=== PATIENT | female | born 1980 | race Caucasian/White ===

== ENCOUNTER → 2018-04-01 09:22 | Outpatient (CLI) | payer OTHER, SELFPAY ==
[2018-04-05 03:06] LABS: QNTFERON TB Ag Minus Nil Value < 0 IU/mL (.); QNTFERON TB Ag Value 0.29 IU/mL (.); QNTFERON TB Mitogen Value > 10.00 IU/mL (.); QNTFERON TB Nil Value 0.57 IU/mL (.)
[2018-04-05 08:47] LABS: QNTIFERON TB Gold Negative (Negative)
== END ==
PROVIDERS: Dermatology Pediatric Dermatology; Family Provider Family Medicine; PCP Family Medicine
DX: L40.0 Psoriasis vulgaris (principal); Z79.899 Other long term (current) drug therapy
CPT/HCPCS: 36415; 86480

== ENCOUNTER → 2018-05-05 13:43 | Outpatient (CLI) | payer OTHER, SELFPAY ==
--- NOTE | 2018-05-05 13:46 | BI_ITS ---
MAMMOGRAPHY - BILATERAL DIAGNOSTIC REASON FOR EXAM: Female, 37 years old. One-day history of right breast lump. Injury. PERTINENT HISTORY: Non-contributory. TECHNIQUE: Digital bilateral breast cary (3D mammographic acquisition) in the CC and MLO projections. 2-D mediolateral oblique (MLO) and craniocaudad (CC) views of both breasts were obtained. CAD: Full Field Digital Mammography with Computer Added Detection was performed. COMPARISON: None. Baseline examination. FINDINGS: Breast Composition: There are scattered areas of fibroglandular density. There are no dominant masses or suspicious calcifications. No other significant abnormalities are identified. BI/DIAG MAMM W/CAD, BILAT IMPRESSION: Negative diagnostic mammogram. With the patient's history of a right breast lump, correlation with ultrasound is recommended. ASSESSMENT CATEGORY: BIRADS Category 0: Incomplete. Need additional imaging evaluation. A letter regarding these results will be sent to the patient by the facility within 30 days. Approximately 10% of breast cancers are not detected by mammography. A normal mammogram should not delay biopsy of a clinically suspicious abnormality. Electronically Signed: Zoltan Hope MD at 14:51 EDT Tel [phone], Service support ,
--- NOTE | 2018-05-05 13:46 | US_ITS ---
STUDY: ULTRASOUND BREAST - RIGHT REASON FOR EXAM: Female, 37 years old. Palpable lump in the right breast. TECHNIQUE: Axial and longitudinal images of the RIGHT breast were performed with a high resolution ultrasound transducer. COMPARISON: Comparison is made with prior mammogram done earlier today. FINDINGS: RIGHT Breast: The palpable abnormality at the 1:00 position in the breast that 4 cm from the nipple corresponds to a 2.8 cm x 2.5 cm x 1.3 cm slightly lobular echogenic nodule with a linear fluid density within it. This may represent a hematoma following a history of injury. US/Breast Limited Unilateral IMPRESSION: The pathologic amount equals approximately 2.8 cm x 2.5 cm x 1.3 cm slightly echogenic nodule with a central linear fluid collection. This may represent a hematoma. ASSESSMENT CATEGORY: BIRADS Category 2: Benign. A letter regarding these results will be sent to the patient by the facility within 30 days. Electronically Signed: Zoltan Hope MD at 15:41 EDT Tel [phone], Service support ,
--- NOTE | 2018-05-05 15:45 | BRBX_PTH ---
PATIENT: SYEDA ABREU LOC: [facility] U#:[id number] AGE/SX: 45/F ROOM: RE05/05/[address]: Dr. Roshan Flores MD : 1980 BED: DIS: SPEC #: [id number] RECD: 05/05/18 16:35 STATUS: VIVIANA FABRICIO #: [id number] BANDAR: 05/05/18 15:[address]: Roshan Flores DEPT: SURGICAL PATHOLOGY RECD BY: Jv Correa ENTERED: 05/07/18 07:59 SP TYPE: BREAST BX OTHR DR: Dr. Scar Zavala MD Tissues: Right breast, NOS Procedures: Surgery Specimen Level IV HEADER OPERATION: Right breast biopsy PRE-OP DIAGNOSIS: Right breast lump TISSUE SUBMITTED: Right breast tissue ISCHEMIC TIME: <1 minute FIXATION TIME: 51.5 hours MICROSCOPIC DIAGNOSIS Right breast lump, core biopsy: Fat necrosis. No evidence of malignancy. AM:tanesha 05/08/18 MICROSCOPIC DESCRIPTION Slides are reviewed. GROSS DESCRIPTION Received in fixative is one container labeled with the patient's name and designated right breast. The specimen consists of multiple cores of ramos-yellow tissue measuring 1.7 cm in length and 0.2 cm in diameter. The specimen is totally submitted in one cassette. / RY:tanesha 05/07/18 TC:5 CPT: 07260
== END ==
PROVIDERS: Family Provider Family Medicine; PCP Family Medicine; Visit Provider Surgery
DX: N63.10 Unspecified lump in the right breast, unspecified quadrant (principal)
CPT/HCPCS: 76642; 77062; 77066; 88305; G0279

== ENCOUNTER → 2018-06-17 11:19 | Outpatient (CLI) | payer OTHER, SELFPAY | LOC: RAD 11:21 → MTRAD 12:47 | PROVIDERS: Family Provider Family Medicine; PCP Family Medicine; Visit Provider Physician Assistant | DX: J45.909 Unspecified asthma, uncomplicated (principal); R05 Cough | CPT/HCPCS: 71046 ==

== ENCOUNTER 2018-07-23 07:46 | Emergency (ER) | payer OTHER, SELFPAY ==
[2018-07-23 07:47] VITALS: BP 122/84; PULSE 77; RESP 16; TEMP 36.8; O2SAT 100; BMI 30.9
--- NOTE | 2018-07-23 08:02 | EKG12_ITS ---
Test Reason : BACK PAIN Blood Pressure : / mmHG Vent. Rate : 064 BPM Atrial Rate : 064 BPM P-R Int : 142 ms QRS Dur : 090 ms QT Int : 398 ms P-R-T Axes : 049 049 049 degrees QTc Int : 410 ms Normal sinus rhythm Normal ECG Confirmed by FELIPE RODGERS MD ([id number]), photo editor TRACY DUNBAR ([id number]) on 07/29/2018 9:15:45 AM Referred By: Health Assessment Confirmed By:FELIPE RODGERS MD
--- NOTE | 2018-07-23 08:03 | CT_ITS ---
STUDY: CTA CHEST REASON FOR EXAM: Female, 38 years old. Scapular pain with deep inspiration. RADIATION DOSAGE (If Supplied By Facility): CTDIvol = ( 15.63 ) mGy, DLP = ( 731.49 ) mGycm TECHNIQUE: The examination was performed with the intravenous administration of 100 ml of Isovue 370 contrast material. Post-processing of the angiographic images was performed, with multiplanar reformation and 3D reconstruction. Individualized dose optimization techniques were used for this CT. COMPARISON: None. FINDINGS: Normal enhancement of the main pulmonary artery and right and left pulmonary arteries. Normal enhancement of the bilateral peripheral pulmonary arteries. There is no demonstrated pulmonary embolism. Normal thoracic aorta and visualized great vessels. There is no demonstrated aortic dissection. Normal heart and pericardium. Normal mediastinum. Normal hilar regions. Normal visualized trachea and bronchi. The lungs are well expanded. Normal pulmonary parenchyma. Normal pleura. Normal chest wall structures. There are degenerative changes of thoracic spine. Normal visualized upper abdomen. CT/CTA Chest W/WO Contrast IMPRESSION: Normal CTA chest examination, without a demonstrated pulmonary embolism or arterial dissection. Electronically Signed: Zoltan Hope MD at 10:06 EDT Tel [phone], Service support ,
--- NOTE | 2018-07-23 08:05 | ED.VISSUMM ---
- ER Visit Summary Date of Service: 07/23/18 Chief Complaint: [left back/scapular pain] History of Present Illness: The patient is a 38 F [that presents with left sided back pain along her scapula/rhomboid region. She has some reproduction of the pain with movement of her left arm but she does have pain with breathing as well. She denies any chest pain or shortness of breath otherwise. She overall appears well and nontoxic. No history of DVT or PE. She does have a Mirena IUD in place. She is not tachycardic or hypoxic. No recent travel. She overall appears well and nontoxic. She denies any fall or injury. She has no other complaints.] Physical Examination: [General: The patient appears well and in no apparent distress. Patient is resting comfortably on cart. Skin: Warm, dry, no pallor noted. No rash. Head: Normocephalic, atraumatic Neck: Supple, nontender. ENT: Moist mucus membranes, pharynx within normal limits. Cardiovascular: Regular Rate and Rhythm, no gallups or rubs Respiratory: Patient is in no distress, no accessory muscle use, lungs are clear to auscultation, no wheezing, rales or rhonchi Musculoskeletal: normal ROM, no deformity, tenderness along the left medial scapular region, no swelling. 2+ radial and DP pulses symmetric. GI: No tenderness to palpation, no masses appreciated. No rebound, guarding, or rigidity noted. Neurological: A&O, normal strength and sensation. Psychiatric: Cooperative] Test Results: [EKG shows normal sinus rhythm with a rate of 64, no acute ischemic changes or arrhythmia. Normal intervals. No heart blocks. No S1, Q3, T3 pattern. Blood work overall unremarkable. HCG was negative. WBC was 4.3.] Emergency Department Course and Treatment: [She was given IV fluids and Toradol. CTA imaging shows no evidence of PE or dissection. On re-eval at 1010 patient feels improved and vitals remained stable. She has no evidence of PE or dissection. I feel her symptoms are likely musculoskeletal in nature. She will continue Tylenol or Motrin [id number] as needed and as directed. She will follow closely with her primary provider and return with any new or worsening symptoms. She was advised of her lab findings for close follow-up. Patient discharged home in stable and improved condition.] Treatment Plan: [See above] Disposition: [Discharge home, stable and improved condition] Impression: [Thoracic paraspinal strain] This note was generated with [employer] dictation software. It may contain incorrect words, spelling, and punctuation that were not noted in review of the chart prior to signing ED Disposition - Plan for ED Patient: Disposition: Home or Assisted Living Chief Complaint: Back Instructions: ED Neck Back Pain General Referrals: Scar Zavala MD [Primary Care Provider] -
--- NOTE | 2018-07-23 08:09 | ED.DCSUM_ITS ---
- ER Visit Summary Date of Service: 07/23/18 Chief Complaint: [left back/scapular pain] History of Present Illness: The patient is a 38 F [that presents with left sided back pain along her scapula/rhomboid region. She has some reproduction of the pain with movement of her left arm but she does have pain with breathing as well. She denies any chest pain or shortness of breath otherwise. She overall appears well and nontoxic. No history of DVT or PE. She does have a Mirena IUD in place. She is not tachycardic or hypoxic. No recent travel. She overall appears well and nontoxic. She denies any fall or injury. She has no other complaints.] Physical Examination: [General: The patient appears well and in no apparent distress. Patient is resting comfortably on cart. Skin: Warm, dry, no pallor noted. No rash. Head: Normocephalic, atraumatic Neck: Supple, nontender. ENT: Moist mucus membranes, pharynx within normal limits. Cardiovascular: Regular Rate and Rhythm, no gallups or rubs Respiratory: Patient is in no distress, no accessory muscle use, lungs are clear to auscultation, no wheezing, rales or rhonchi Musculoskeletal: normal ROM, no deformity, tenderness along the left medial scapular region, no swelling. 2+ radial and DP pulses symmetric. GI: No tenderness to palpation, no masses appreciated. No rebound, guarding, or rigidity noted. Neurological: A&O, normal strength and sensation. Psychiatric: Cooperative] Test Results: [EKG shows normal sinus rhythm with a rate of 64, no acute ischemic changes or arrhythmia. Normal intervals. No heart blocks. No S1, Q3 , T3 pattern. Blood work overall unremarkable. HCG was negative. WBC was 4.3.] Emergency Department Course and Treatment: [She was given IV fluids and Toradol. CTA imaging shows no evidence of PE or dissection. On re-eval at 1010 patient feels improved and vitals remained stable. She has no evidence of PE or dissection. I feel her symptoms are likely musculoskeletal in nature. She will continue Tylenol or Motrin [id number] as needed and as directed. She will follow closely with her primary provider and return with any new or worsening symptoms. She was advised of her lab findings for close follow-up. Patient discharged home in stable and improved condition.] Treatment Plan: [See above] Disposition: [Discharge home, stable and improved condition] Impression: [Thoracic paraspinal strain] This note was generated with [employer] dictation software. It may contain incorrect words, spelling, and punctuation that were not noted in review of the chart prior to signing ED Disposition - Plan for ED Patient: Disposition: Home or Assisted Living Chief Complaint: Back Instructions: ED Neck Back Pain General Referrals: Scar Zavala MD [Primary Care Provider] -
[2018-07-23] MEDS: Ketorolac 30 MG/ML Syringe IV (08:14)
[2018-07-23] MEDS: 0.9% Normal Saline 1,000 ML 1000 ML IV (08:14)
[2018-07-23 08:33] LABS: Absolute Lymphocyte Count 1.44 X10^3/ul (0.83-4.51); Absolute Neutrophil Count 2.4 X10^3/uL (2.0-7.7); Basophil# 0.01 X10^3/uL; Basophil% 0.2 % (0-1); Eosinophil# 0.07 X10^3/uL; Eosinophils% 1.6 % (0-5); Hemoglobin 13.7 g/dl (12.0-15.0); Lymphocyte # 1.44 X10^3/ul (4.0); Lymphocyte % 33.2 % (19-41); Mean Corp Hgb Conc 34.3 g/gl (32-36); Mean Corpuscular Hgb 31.5 pg (27.0-32.0); Mean Platelet Vol. 11.5 fl (6.2-12.0); Monocyte# 0.41 X10^3/uL; Monocyte% 9.4 % (0-10); Neutrophil # 2.41 X10^3/uL (2.7-7.7); Neutrophil % 55.6 % (47-70); Platelet Count 195 K/mm3 (150-450); RBC Distribution Width CV 12.4 % (11.6-14.6); RBC Distribution Width SD 41.9 fl (35.1-43.9); Red Blood Count 4.35 M/mm3 (4.2-5.4); White Blood Count 4.3 K/mm3 (4.4-11.0)
[2018-07-23 08:35] LABS: POSITIVE COUNT NO; POSITIVE DIFFERENTIAL NO; POSITIVE MORPHOLOGY NO
[2018-07-23 08:45] LABS: Anion Gap 11 (5-15); BUN 12 mg/dL (7-18); BUN/Creat Ratio 18.4 RATIO (10-20); Calcium,Total 8.4 mg/dL (8.5-10.1); Chloride 107 mmol/L (98-107); Creatinine, Serum 0.65 mg/dL (0.55-1.02); EST Glomerular Filtration Rate 108 mL/min (>60); Est Glom Filt Rate - Afr Amer 131 mL/min (>60); Estimated Creatinine Clearance 139.68 ml/min; Glucose 86 mg/dL (74-106); Potassium 3.8 mmol/L (3.5-5.1); Sodium Level 140 mmol/L (136-145)
[2018-07-23 09:07] LABS: Pregnancy, Serum, hCG Quali. NEGATIVE Negative (0-9 Nonpreg)
== END 2018-07-23 10:32 | disposition home or self-care (01) ==
PROVIDERS: Emergency Provider Emergency Medicine; Family Provider Family Medicine; PCP Family Medicine
DX: S29.012A Strain of muscle and tendon of back wall of thorax, initial encounter (principal); X58.XXXA Exposure to other specified factors, initial encounter; Y93.9 Activity, unspecified; Y92.9 Unspecified place or not applicable; Z87.891 Personal history of nicotine dependence
CPT/HCPCS: 71275; 80048; 84703; 85025; 93005; 96361; 96374; 99284; J7030; Q9967; A4216

== ENCOUNTER 2018-10-09 05:57 | Day surgery (SDC) | payer OTHER, SELFPAY ==
[2018-10-07 12:00] LABS: Absolute Lymphocyte Count 1.55 X10^3/ul (0.83-4.51); Absolute Neutrophil Count 2.9 X10^3/uL (2.0-7.7); Basophil# 0.02 X10^3/uL; Basophil% 0.4 % (0-1); Eosinophil# 0.12 X10^3/uL; Eosinophils% 2.3 % (0-5); Hematocrit 39.9 % (37-47); Hemoglobin 13.7 g/dl (12.0-15.0); Lymphocyte # 1.55 X10^3/ul (4.0); Lymphocyte % 29.9 % (19-41); Mean Corp Hgb Conc 34.3 g/gl (32-36); Mean Corpuscular Hgb 32.2 pg (27.0-32.0); Mean Corpuscular Volume 93.7 fL (81-99); Mean Platelet Vol. 11.3 fl (6.2-12.0); Monocyte# 0.54 X10^3/uL; Monocyte% 10.4 % (0-10); Neutrophil # 2.94 X10^3/uL (2.7-7.7); Neutrophil % 56.8 % (47-70); POSITIVE COUNT NO; POSITIVE DIFFERENTIAL NO; POSITIVE MORPHOLOGY NO; Platelet Count 211 K/mm3 (150-450); RBC Distribution Width CV 12.6 % (11.6-14.6); RBC Distribution Width SD 42.3 fl (35.1-43.9); Red Blood Count 4.26 M/mm3 (4.2-5.4); White Blood Count 5.2 K/mm3 (4.4-11.0)
[2018-10-07 12:14] LABS: ALB/GLOB Ratio 1.2 RATIO (0.9-2.4); AST(SGOT) 12 U/L (15-37); Alanine Aminotransfer ALT/SGPT 19 U/L (13-56); Albumin, Serum 3.7 g/dL (3.2-5.0); Alkaline Phosphatase 45 U/L (45-117); Anion Gap 8 (5-15); BUN 12 mg/dL (7-18); BUN/Creat Ratio 15.4 RATIO (10-20); Calcium,Total 8.6 mg/dL (8.5-10.1); Chloride 106 mmol/L (98-107); Creatinine, Serum 0.78 mg/dL (0.55-1.02); EST Glomerular Filtration Rate 88 mL/min (>60); Est Glom Filt Rate - Afr Amer 106 mL/min (>60); Globulin 3.2 g/dL (2.2-4.2); Glucose 90 mg/dL (74-106); Potassium 3.6 mmol/L (3.5-5.1); Protein, Total 6.9 g/dL (6.4-8.2); Sodium Level 141 mmol/L (136-145)
[2018-10-07 12:18] LABS: Vitamin D,25 Hydroxy 45.3 ng/mL (29.95-100.01)
[2018-10-09] VITALS (9 sets, daily range): BP systolic 109–129; BP diastolic 64–80; PULSE 64–84; RESP 16–18; TEMP 36.4–37; O2SAT 97–100; BMI 33.5
[2018-10-09 06:20] LABS: Internal QC Validated? YES +Cl - CLEAR BKGD; Pregnancy, Urine Negative Negative
[2018-10-09] MEDS: Bupivacaine Mpf 0.5% 30 ML VIAL (06:57)
[2018-10-09] MEDS: Cefazolin 2 GM in 0.9% Normal Saline 100 ML IV (07:25)
--- NOTE | 2018-10-09 07:30 | BUN_PTH ---
PATIENT: SYEDA ABREU LOC: [facility] [place] U#:[id number] AGE/SX: 38/F ROOM: RE10/09/[address]: Dr. Cooper Carrasquillo DPM : 1980 BED: DIS: 10/09/2018 SPEC #: [id number] RECD: 10/09/18 10:31 STATUS: VIVIANA RERome #: [id number] BANDAR: 10/09/18 07:[address]: Cooper Carrasquillo DEPT: SURGICAL PATHOLOGY RECD BY: Erwin Waldrop ENTERED: 10/09/18 11:06 SP TYPE: BUNION OTHR DR: Dr. Scar Zavala MD Tissues: Bone of foot, NOS Procedures: Decalcification bone/plaque Surgery Specimen Level IV HEADER OPERATION: First metatarsal cuneiform Lap[place]us arthrodesis PRE-OP DIAGNOSIS: Bunion first metatarsal; hammertoes second and third; hypermobile first ray TISSUE SUBMITTED: Bone MICROSCOPIC DIAGNOSIS Bone, first metatarsal, excision: Reactive and reparative change consistent with hammertoe deformity. AM:tanesha 10/14/18 MICROSCOPIC DESCRIPTION Slides are reviewed. GROSS DESCRIPTION Received in fixative is one container labeled with the patient's name and designated bone. The specimen consists of a single discoid fragment of ramos-white bone measuring 2 x 1.6 x 0.2 cm. The specimen is submitted in its entirety in one cassette after decalcification. / AM:tanesha 10/09/18 TC:5 CPT: 56967, 08664
--- NOTE | 2018-10-09 07:34 | RAD_ITS ---
STUDY: X-RAY - LEFT FOOT CLINICAL: Female, 38 years old. 1st METATARSEL CUNEIFORM LAPIDUS ARTHRODESIS, ARTHRODESIS FUSION 2nd and 3rd TOES, BUNIONECTOMY 1st METATARSAL TECHNIQUE: 3 view(s) of the foot. COMPARISON: None. FINDINGS: 3 intraoperative views are presented. External fusions of the second and third digits. Hardware bridging the first tarsometatarsal joint. Bunionectomy changes. RAD/Foot min 3 Views IMPRESSION: Postoperative changes as described. Electronically Signed: Tino Lacy MD at 11:10 EST Tel , Service support ,
--- NOTE | 2018-10-09 10:57 | RAD_ITS ---
STUDY: X-RAY - LEFT FOOT CLINICAL: Female, 38 years old. Postop fusion and bunionectomy TECHNIQUE: 3 view(s) of the foot. COMPARISON: 10/09/2018 FINDINGS: External fusions of the second and third proximal and distal interphalangeal joints with normal alignment. Surgical fusion of the first tarsometatarsal joint with normal alignment. Bunionectomy changes. Soft tissue swelling. No acute fractures are seen. Plantar calcaneus spur. RAD/Foot min 3 Views IMPRESSION: Uncomplicated postoperative changes as described. Electronically Signed: Tino Lacy MD at 11:47 EST Tel , Service support ,
--- NOTE | 2018-10-09 10:58 | DCINST_ITS ---
Discharge Diet: Light diet - advance as tolerated Discharge Activity: May Not Drive Weight Bearing Status: No weight bearing - No weightbearing left foot Keep extremity elevated above heart level: Left Leg - Keep left foot elevated with pillows for at least 50 minutes of every hour Call your doctor if your incision/area has: Continuous Slow Oozing, Sudden Increased Bleeding, Increased Pain/ Swelling, Increased Redness, Foul Smelling Discharge Call your doctor if you observe: Fever of 101 or Higher, Shortness of breath, Chest pain, Increased palpitations (irregular heartbeat), Calf discomfort, Uncontrolled pain Cleanse incision/area with: Do not get Incision Wet, Keep Dressing Clean & Dry Allergies/Adverse Reactions: Allergies No Known Allergies Allergy (Verified 10/09/18 06:11) Medications to take at Discharge levonorgestrel 20 mcg/24 hr (5 years) intrauterine device 1 insert INTRAUTERINE ONCE 05/05/18 ustekinumab 90 mg/mL subcutaneous syringe 90 mg SC Q12W 05/05/18 Amox/Clavulanate Tablet [Augmentin Tablet] 875 mg PO Q12H #14 tab 10/09/18 Oxycodone HCl/Acetaminophen [Percocet 5/325] 1 - 2 tab PO Q6H PRN PRN 3 Days #30 tab 10/09/18 The following prescriptions were given: Oxycodone HCl/Acetaminophen [Percocet 5/325] 1 - 2 tab PO Q6H PRN PRN 3 Days #30 tab PRN Reason: Pain Amox/Clavulanate Tablet [Augmentin Tablet] 875 mg PO Q12H #14 tab Primary Care Physician: Scar Zavala MD [Primary Care Provider] - Test Results: Test results from this visit will be discussed in further detail at your follow- up appointment, if applicable. Please Follow Up With: Cooper Carrasquillo DPM When: within 1 week, sooner if needed
--- NOTE | 2018-10-09 11:01 | OP.PCM_ITS ---
Report of Operation Date of Procedure: 10/09/18 Pre-Operative Diagnosis: Hallux valgus bunion, left foot. Hammer toes 2-3 toes left foot Post-Operative Diagnosis: Same Surgery/Procedure Performed:: 1st metatarsal cuneiform arthrodesis (lapidus) bunionectomy. Arthrodesis 2nd and 3rd toes, left foot teaching specialists: yes - Dr. Mark Wild teaching specialists: yes - Dr. Lesly Patricia Type of Anesthesia:: General Specimen's removed: Left foot bunion sent to pathtology Estimated Blood Loss (mL): 20mL Description of Procedure: Indications: This is a 38 year old female with history of significant painful hallux valgus bunion with painful hammer toes of the 2nd and 3rd toes left foot. She has continued pain despite conservative/nonsurgical management. She has elected to proceed forward with surgical intervention -1st metatarsal cuneiform Lapidus arthrodesis bunionectomy with arthrodesis 2nd and 3rd toes. All of the possible benefits, risks, potential complications, goals, expectations, typical healing time, post op course estimates were discussed and reviewed with her in detail. All of her questions were answered. The consent forms were reviewed with her and she freely signed them. No guarantees were given nor implied. Operative Procedure: The patient was brought back into the operating room and was placed on the operating room table in the supine position. She was carefully secured to the operating room table with a safety belt around her waist. A time out was performed and the patient was properly identified and the surgical plan was confirmed. The patient received 2g of IV Cefazolin for antibiotic prophylaxis. A well padded pneumatic tourniquet was applied around the left ankle. The patient received general anesthesia per the anesthesiologist. The left foot was scrubbed, prepped, draped in the usual aseptic fashion. The left foot was elevated for 3 minutes and the left ankle pneumatic tourniquet was inflated to 250mmHg. Using a 15 blade a linear longitudinal skin incision was made just medial to the extensor hallucis longus tendon overlying the 1st metatarsal cuneiform joint. Careful blunt dissection was completed down through the subcutaneous layer, and the capsule and periosteum of the dorsal 1st metatarsal cuneiform joint joint were identified and were carefully incised on the dorsal aspect, it was carefully partially reflected exposing the 1st metatarsal cuneiform joint. A sagittal saw was run congruously down the 1st metatarsocuneiform joint to mobilize and plane the joint surfaces. A fulcrum was placed at the base of the lateral 1st metatarsal. The Lapiplasty positioner was placed from the 1st metatarsal to the shaft of second metatarsal after a small linear skin incision was made overlying the dorsal lateral aspect of the second metatarsal shaft in which careful blunt dissection was completed down to the second metatarsal. The Lapiplasty positioner was inserted and placed on the 1st and 2nd metatarsal and the 1st metatarsal was derotated and the 1st IM angle was reduced into normal anatomic alignment. The position of the hallux and the 1st MTPJ range of motion were checked and in good position. The K-wire was placed through the Lapiplasty positioner to the 1st and 2nd metatarsals. The joint seeker was placed to the 1st metatarsal cuneiform joint and the Lapiplasty cut guide was applied as well. It was stabilized using a total of 3 K-wires. With the Lapiplasty guide in place, a sagittal saw was used to remove the cartilage off of the base of the 1st metatarsal and off of the anterior aspect of the 1st cuneiform. It should be noted that intraoperative fluoroscopy was used throughout this process and throughout the rest of this procedure to confirm proper reduction and correction of the deformity and proper fixation as well. The cut guide was removed. The K-wires were removed. The positioner was loosened. The resected cartilage was removed to healthy bone for fusion. The site was flushed out with copious amounts of normal saline solution. The surfaces of the base of the 1st metatarsal and the anterior aspect of the 1st cuneiform were fenestrated multiple times using a drill bit on both sides. This was done to expose bleeding bone for optimal fusion. At this time, the reduction was held in place, and the fusion site was held together, and a 2mm threaded gaston ve wire was placed across the 1st metatarsal cuneiform fusion site. Proper reduction was confirmed visually as well as using intraoperative fluoroscopy. At this time 2 low profile biplaner Treace Lapiplasty plates were placed across the fusion site, one dorsal and the other one medial. These were fixated using a total of 8 locking screws. These were placed using standard rigid open reduction internal fixation technique. The screw were tightened down firmly and locked into the plate. The kwires and positioner were removed. The fulcrum was removed. There was excellent bone to bone contact and compression at the fusion site with normal alignment present. There was no gapping at this time. The plantar aspect was checked and there was no plantar gapping. There was noted to be excellent stability across the fusion site with the 1st ray in normal alignment in all planes. There was no hypermobility of the 1st ray as it was now stable and fixated. There was triplaner correction present. The site was flushed out with copious amounts of normal saline solution. The joint capsule was reapproximated using 3-0 Vicryl, the skin was reapproximated using 3-0 Monocryl. Cavilon was painted to the sutured skin edges and steristrips were applied across the sutured skin incision. It was noted there to be a residual prominent medial eminence present at the level of the 1st metatarsal head. An incision was made over the medial 1st metatarsophalangeal joint, careful blunt dissection was completed down through the subcutaneous tissue layer down to the medial 1st metatarsal phalangeal joint capsule. The capsule was incised and was partially reflected off of the 1st metatarsal head exposing the eminence. The eminence (bunion) was resected from the dorsal medial aspect of the 1st metatarsal head using a powered sagittal saw being sure to preserve the sagittal groove. The bone was sent to pathology for further evaluation. The site was flushed out with copious amounts of normal saline solution. The joint capsule was reapproximated in neutral position using 3-0 Vicryl, the skin was reapproximated using 3-0 Monocryl. There was noted to be smooth and normal range of motion of the 1st metatarsal phalangeal joint. Attention was directed to the 2nd toe, it was a contracted hammer toe with the contracture at the level of the proximal interphalangeal joint. A linear longitudinal incision was made overlying the dorsal proximal interphalangeal joint of the toe. Dissection was complete down to the extensor digitorum longus tendon which was incised longitudinally. It was retracted out of the way. The capsule and collateral ligaments of the proximal interphalangeal joint were released. The cartilage was resected from the head of the proximal phalanx and the base of the middle phalanx down to bleeding viable bone. A 0.062 inch Kwire was placed down the middle of the distal, middle and proximal phalanges with the prepped bone ends of the proximal phalanx and middle phalanx touching for arth rodesis. The Kwire was intact and in good position, the toe was in rectus position, this was all confirmed with intra operative fluoroscopy. The site was flushed out with copious amounts of normal saline solution. The extensor tendon was reapproximated using 3-0 Vicryl and the skin was reapproximated using 3-0 Monocryl. The Kwire was trimmed and capped where it exited the toe. Attention was directed to the 3rd toe, it was a contracted hammer toe with the contracture at the level of the proximal interphalangeal joint. There was also exostosis of the dorsal distal interphalangeal joint. A linear longitudinal incision was made overlying the dorsal and distal proximal interphalangeal joints of the toe. Dissection was complete down to the extensor digitorum longus tendon which was incised longitudinally. It was retracted out of the way. The capsule and collateral ligaments of the proximal interphalangeal joint were released from the proximal interphalangeal joint. The cartilage was resected from the head of the proximal phalanx and the base of the middle phalanx down to bleeding viable bone. The exostosis was resected from the dorsal aspect of the distal interphalangeal joint. A 0.062 inch Kwire was placed down the middle of the distal, middle and proximal phalanges with the prepped bone ends of the proximal phalanx and middle phalanx touching for arthrodesis. The Kwire was intact and in good position, the toe was in rectus position, this was all confirmed with intra operative fluoroscopy. The site was flushed out with copious amounts of normal saline solution. The extensor tendon was reapproximated using 3-0 Vicryl and the skin was reapproximated using 3-0 Monocryl. The Kwire was trimmed and capped where it exited the toe. All vital structure, including all vital neurovascular structures were properly identified and protected as necessary throughout the procedure. At this time there was again noted to be good smooth ROM of the 1st MTPJ with normal alignment present. There was no longer hypermobility of the 1st ray present. There was excellent bone to bone contact and stability at the fusion site with intact screws and plates of the 1st metatarsal cuneiform joint arthrodesis. The 1st ray was in normal alignment. The pneumatic tourniquet was deflated at the 90 minute marjan, and there was immediate return vascular flow to the foot, CFT < 2 seconds to all toes, normal temperature gradient, pedal pulses intact. Hemostasis was achieved prior to all incision closure. A dressing was applied which consisted of betadine soaked adaptic, 4x4 gauze, kerlix, and viviane bandage. 0.5% Bupivacaine plain was given as a 1st ray block, and 2nd and 3rd toe nerve block for further post op pain control. The patient tolerated the above operative procedure well at the anesthesia well with no complication. The patient was transported to the recovery room with vital signs stable and in good condition. Post operative orders were placed. Post operative instructions were reviewed with her as well as with her family who was here with her today. No weightbearing left foot, use crutches for assistance with surgical shoe, keep left foot elevated for at least 50 minutes of every hour, keep dressing clean, dry and intact. Prescription for Percocet 5mg/325mg was prescribed: 1-2 tabs PO q 6 hours PRN pain. She is to follow up with me within 1 week or sooner if needed. Post operative xrays left foot, 3 views, were obtained in the recovery room which confirmed 1st metatarsal cuneiform arthrodesis Lapidus bunionectomy with good alignment present. There was excellent bone to bone contract at the fusion site with no gapping. Arthrodesis 2nd and 3rd toes with intact kwires. Grafts/Implants Used: 2 treace lapiplasty plates and locking screws, 2 x 0.062 in kwires - Complications None
== END 2018-10-09 13:50 | disposition home or self-care (01) ==
LOC: SDC 05:58 → AC 05:58
PROVIDERS: Anesthesiology; Family Provider Family Medicine; PCP Family Medicine; Referring Provider Podiatrist; Visit Provider Podiatrist
PROC: (CPT 28292; principal; 2018-10-09 07:15)
DX: M20.12 Hallux valgus (acquired), left foot (principal); M21.612 Bunion of left foot; M20.42 Other hammer toe(s) (acquired), left foot; M20.41 Other hammer toe(s) (acquired), right foot; F41.9 Anxiety disorder, unspecified; Z87.891 Personal history of nicotine dependence
CPT/HCPCS: 01480; 28285 ×2; 28297; 36415; 73630; 76000; 80053; 81025; 82306; 85025; 88304; 88305; 88311; J7120; J2405

== ENCOUNTER 2019-01-18 10:00 | Outpatient (RCR) | payer OTHER, SELFPAY ==
[2018-10-09 06:12] VITALS: BMI 33.5
--- NOTE | 2019-01-04 11:18 | HP.PTEVAL ---
Patient's Visit Information DEION ABREU is a 38 year old F referred to Physical Therapy by Cooper Carrasquillo DPM with a diagnosis of Left Bunionectomy and Hammer Toe Correction. Date of Evaluation: 01/04/19 Physical Therapist: Lakeisha Grewal DPT - Visit Plan Frequency: 2x /Week Duration: 4 Weeks Plan: Focus on LE ROM and strength-. manual to foot and toes for lymph drainage - Subjective Findings: Left bunionectomy and hammer toe correction 10/09/18. Patient reports that its better but she can only wear a certain pain or shoes and its swollen and hurts really bad. 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 Is in her boot 50% of the time. Worst:6/10 Agg: walking, stairs, pressure on her feet. Best: 0/10 Eases: getting off of them- Voltaran gel, Advil. Takes about 30 min to go away. Does ice occasonally and compression stockings. Rotates between shoes and barefoot at home to improve ROM- does not like it. Very painful today. Pain is located along the arch and along the 2 hammer toes. Whole leg hurts from compensation not radiating pain. Post op numbness- no changes N/T. Generalized pain- tightness and sharp pains. Very active before this and its killing her to be sedentary. Worked out before- 3x a week [employer]- running/walking a mile. Recent x-rays last week with Dr. Carrasquillo. Sees him in 2 weeks. Sleep: better but still wakes her up- all over the place. PMHx: psoriatic arthritis. Meds: stolera, IUD - Objective Posture: good throughout treatment. Gait: antalgic- decreased stance on left LE with poor heel/toe pattern. SLS: 10 sec then LOB and reports pain. HR/TR: able sitting. Observation: incisiong healing well- moderate edema of the 2nd and 3rd toe. Palpation: tender along plantar surface of the foot. ROM: DF: neutral, PF:60 degrees, Ever: 30 Inv: 40 degrees Knee/Hip: WNL. Strength: core: fair, Ankle: 4/5 throughout available range. Special Test: Windlass Mechanism:positive. Flex: HS: moderate, Gastroc: severe, Soleus: moderate - Goals Goal 1:: Patient will be I with HEP and progression Goal Time Frame: 4-6 Weeks Goal 2:: Patient will ambulate >300 feet with a noramlized gait pattern Goal Time Frame: 4-6 Weeks Goal 3:: Patient will SLS for 30 sec without LOB Goal Time Frame: 4-6 Weeks Goal 4:: Patient will demo 10 degrees of DF Goal Time Frame: 4-6 Weeks - Rehabilitation Potential Physical Therapy Diagnosis: Patient presents with hypmobility- she has decreased ROM, strength and muscular endurance leading to abnormal gait and decreased ability to perform painfree ADL's. Rehabilitation Potential: Fair - Anticipated Interventions Patient/Client Instruction: Educate patient on: Benefits of Fitness Program Therapeutic Exercise to Include: Strength training, Endurance training, Balance training, Agility training, Body mechanics, Postural training, Flexibilty training, Gait and locomotor training, Passive ROM, Active ROM For the Purpose of:: To improve muscle performance and motor function TENS: Yes Cryotherapy (ice pack, ice massage): Yes Thermo therapy (hot pack): Yes Ultrasound (thermal/non thermal): No For the Purpose of:: To decrease pain Thank you for the opportunity to evaluate your patient. For Medicare and Medicare HMO plans, please review the plan of care and approve it. It will need to be FAXED BACK to us at [phone] for Medicare purposes. For Medicare only, by signing this I certify the plan of care. Please let me know if there are questions or concerns regarding this plan of care. Physician Signature: Date:
--- NOTE | 2019-03-04 12:02 | HP.PT.NRP ---
HP - Discharge Summary (1) - Patient Information DEION ABREU was seen in my office for initial evaluation on 01/04/19. The following Plan of Care was established for this patient: Initial Frequency: 2x /Week Initial Duration: 4 Weeks - Anticipated Interventions Patient/Client Instruction: Educate patient on: Benefits of Fitness Program Therapeutic Exercise to Include: Strength training, Endurance training, Balance training, Agility training, Body mechanics, Postural training, Flexibilty training, Gait and locomotor training, Passive ROM, Active ROM For the Purpose of:: To improve muscle performance and motor function TENS: Yes Cryotherapy (ice pack, ice massage): Yes Thermo therapy (hot pack): Yes Ultrasound (thermal/non thermal): No For the Purpose of:: To decrease pain This patient was last seen in our office . Pertinent comments regarding their Physical therapy will appear below: Patient has not attended physical therapy is over 30 days- appropriate to be d/c from PT and return to MD as needed for further evaluation. At this point I will be discontinuing this patient from physical therapy. I would be happy to see this patient again in the future if found appropriate by the physician. Thank you! VANESSA MaynardT
== END 2019-01-18 19:00 | disposition home or self-care (01) ==
LOC: PT 10:00
PROVIDERS: Family Provider Family Medicine; PCP Family Medicine; Referring Provider Podiatrist; Visit Provider Podiatrist
DX: Z98.890 Other specified postprocedural states (principal)
CPT/HCPCS: 97016; 97110; 97140; 97161

== ENCOUNTER → 2019-01-22 16:47 | Outpatient (CLI) | payer OTHER, SELFPAY ==
[2018-10-09 06:12] VITALS: BMI 33.5
--- NOTE | 2019-01-22 16:50 | CT_ITS ---
STUDY: CT LEFT FOOT REASON FOR EXAM: Female, 38 years old. Chronic foot pain. History of prior surgery for bunionectomy and hammertoe repair. RADIATION DOSAGE (If Supplied By Facility): CTDIvol = ( 15.35 ) mGy, DLP = ( 358.82 ) mGycm TECHNIQUE: Thin section transaxial imaging of the foot was obtained, with sagittal and coronal reconstructed images. Individualized dose optimization techniques were used for this CT. COMPARISON: None. FINDINGS: Small plantar spur. The patient is status post open reduction and internal fixation of the first tarsometatarsal joint utilizing screw and plate fixation devices. The fusion is not complete. Normal metatarsi. The patient is status post bunionectomy with resection of the tibial aspect of the distal first metatarsal. Normal tibial and fibular sesamoid bones. Normal interphalangeal joint of the great toe. Normal phalanges of the great toe. Normal second through fifth metatarsophalangeal joints. Normal interphalangeal joints and phalanges of the lesser toes. Soft tissue swelling. CT/Extremity Lower without Contra IMPRESSION: Status post fusion at the first tarsometatarsal joint. The fusion line is visible and the fusion is not complete. Electronically Signed: Zoltan Hope, at 8:18 EDT , Service support ,
== END ==
PROVIDERS: Family Provider Family Medicine; PCP Family Medicine; Referring Provider Podiatrist; Visit Provider Podiatrist
DX: M96.0 Pseudarthrosis after fusion or arthrodesis (principal)
CPT/HCPCS: 73700

== ENCOUNTER → 2019-01-25 15:03 | Outpatient (CLI) | payer OTHER, SELFPAY ==
[2018-10-09 06:12] VITALS: BMI 33.5
[2019-01-25 18:02] LABS: Calcium,Total 8.8 mg/dL (8.5-10.1)
[2019-01-25 18:18] LABS: Vitamin D,25 Hydroxy 36.6 ng/mL (29.95-100.01)
[2019-01-27 20:07] LABS: QNTFERON TB Mitogen Value > 10.00 IU/mL (.); QNTFERON TB Nil Value 0.34 IU/mL (.); QNTFERON TB1+ Ag Value 0.15 IU/mL (.)
[2019-01-28 14:49] LABS: QNTIFERON TB Positive Criteria Negative (Negative)
== END ==
PROVIDERS: Podiatrist; Family Provider Family Medicine; PCP Family Medicine; Referring Provider Physician Assistant; Visit Provider Physician Assistant
DX: L40.0 Psoriasis vulgaris (principal); Z79.899 Other long term (current) drug therapy
CPT/HCPCS: 36415; 82306; 82310; 86480

== ENCOUNTER → 2019-08-04 15:17 | Outpatient (CLI) | payer OTHER, SELFPAY ==
[2018-10-09 06:12] VITALS: BMI 33.5
--- NOTE | 2019-08-04 15:21 | US_ITS ---
STUDY: ULTRASOUND OF THE FEMALE PELVIS REASON FOR EXAM: Female, 39 years old. IUD placement. LMP: Unknown. TECHNIQUE: Transvaginal TECHNICAL QUALITY: Adequate. COMPARISON: None. FINDINGS: The uterus is anteverted and is in a midline position. The uterus measures 8.6 x 4.5 x 4.0 cm. There is a Nabothian cyst of the cervix. The endometrium measures 3 mm in thickness, and is hyperechoic. There is no demonstrated endometrial mass. There is no demonstrated myometrial mass. I.U.D. - The patient does have an I.U.D. IUD is seen in the endometrium. The right ovary is visualized. The right ovary measures 3.0 x 2.9 x 1.9 cm. There is no right ovarian cyst or ovarian mass. There is no visualized right adnexal mass or complex lesion. There is normal arterial and normal venous vascularity. The left ovary is visualized. The left ovary measures 2.2 x 1.9 x 1.7 cm. There is no left ovarian cyst or ovarian mass. There is no visualized left adnexal mass or complex lesion. There is normal arterial and normal venous vascularity. There is no fluid in the cul-de-sac. US/Transvaginal Non- IMPRESSION: IUD in the uterus. No pelvic mass. Electronically Signed: Vincenzo Jones MD at 15:59 EDT , Service support ,
== END ==
PROVIDERS: Family Provider Family Medicine; PCP Family Medicine; Referring Provider Nurse Practitioner Family; Visit Provider Nurse Practitioner Family
DX: Z30.431 Encounter for routine checking of intrauterine contraceptive device (principal); N93.9 Abnormal uterine and vaginal bleeding, unspecified
CPT/HCPCS: 76830; 93976

== ENCOUNTER → 2019-12-31 14:33 | Outpatient (CLI) | payer OTHER, SELFPAY ==
[2018-10-09 06:12] VITALS: BMI 33.5
[2020-01-04 05:06] LABS: QNTFERON TB Mitogen Value > 10.00 IU/mL (.); QNTFERON TB Nil Value 0.83 IU/mL (.); QNTFERON TB1+ Ag Value 1.03 IU/mL (.); QNTFERON TB2+ Ag Value 0.76 IU/mL (.)
[2020-01-04 10:21] LABS: QNTIFERON TB Positive Criteria Negative (Negative)
== END ==
PROVIDERS: PCP Family Medicine; Referring Provider Physician Assistant Medical; Visit Provider Physician Assistant Medical
DX: L40.0 Psoriasis vulgaris (principal); Z79.899 Other long term (current) drug therapy
CPT/HCPCS: 36415; 86480

== ENCOUNTER → 2020-08-14 15:10 | Outpatient (CLI) | payer OTHER, SELFPAY ==
[2018-10-09 06:12] VITALS: BMI 33.5
--- NOTE | 2020-08-14 15:12 | BI_ITS ---
MAMMOGRAPHY - BILATERAL SCREENING REASON FOR EXAM: Female, 40 years old. Routine annual screening examination. PERTINENT HISTORY: Non-contributory. TECHNIQUE: Digital bilateral breast cary (3D mammographic acquisition) in the CC and MLO projections. 2-D mediolateral oblique (MLO) and craniocaudad (CC) views of both breasts were obtained. CAD: Full Field Digital Mammography with Computer Added Detection was performed. COMPARISON: Comparison is made with prior examination dated 05/05/2018. FINDINGS: Breast Composition: There are scattered areas of fibroglandular density. There are no dominant masses or suspicious calcifications. No other significant abnormalities are identified. There has been no significant change since the prior study. BI/SCREENING MAMM (CAD), BILAT IMPRESSION: Stable bilateral screening mammogram. Yearly follow-up mammogram recommended. (A) ASSESSMENT CATEGORY: BIRADS Category 1: Negative. A letter regarding these results will be sent to the patient by the facility within 30 days. Approximately 10% of breast cancers are not detected by mammography. A normal mammogram should not delay biopsy of a clinically suspicious abnormality. [id number] Electronically Signed: Zoltan Hope, at 9:14 EDT , Service support ,
== END ==
PROVIDERS: PCP Family Medicine; Referring Provider Nurse Practitioner Family; Visit Provider Nurse Practitioner Family
DX: Z12.31 Encounter for screening mammogram for malignant neoplasm of breast (principal)
CPT/HCPCS: 77067

== ENCOUNTER → 2020-12-18 13:59 | Outpatient (CLI) | payer OTHER, SELFPAY ==
[2018-10-09 06:12] VITALS: BMI 33.5
[2020-12-18 15:46] LABS: ALB/GLOB Ratio 1.1 RATIO (0.9-2.4); AST(SGOT) 14 U/L (15-37); Alanine Aminotransfer ALT/SGPT 32 U/L (13-56); Albumin, Serum 3.7 g/dL (3.2-5.0); Alkaline Phosphatase 49 U/L (45-117); Anion Gap 7 (5-15); BUN 14 mg/dL (7-18); BUN/Creat Ratio 16.7 RATIO (10-20); Calcium,Total 8.7 mg/dL (8.5-10.1); Chloride 107 mmol/L (98-107); Creatinine, Serum 0.84 mg/dL (0.55-1.02); EST Glomerular Filtration Rate 80 mL/min (>60); Est Glom Filt Rate - Afr Amer 97 mL/min (>60); Globulin 3.3 g/dL (2.2-4.2); Glucose 132 mg/dL (74-106); Potassium 3.6 mmol/L (3.5-5.1); Sodium Level 139 mmol/L (136-145)
== END ==
PROVIDERS: PCP Family Medicine; Referring Provider Dermatology Pediatric Dermatology; Visit Provider Dermatology Pediatric Dermatology
DX: L40.0 Psoriasis vulgaris (principal); L40.59 Other psoriatic arthropathy; Z79.899 Other long term (current) drug therapy
CPT/HCPCS: 36415; 80053; 86480

== ENCOUNTER → 2021-01-01 13:27 | Outpatient (CLI) | payer OTHER, SELFPAY ==
[2018-10-09 06:12] VITALS: BMI 33.5
[2021-01-06 03:07] LABS: QNTFERON TB Mitogen Value > 10.00 IU/mL (.); QNTFERON TB Nil Value 0.97 IU/mL (.); QNTFERON TB1+ Ag Value 0.54 IU/mL (.)
[2021-01-06 13:06] LABS: QNTIFERON TB Positive Criteria Negative (Negative)
== END ==
PROVIDERS: PCP Family Medicine; Referring Provider Dermatology Pediatric Dermatology; Visit Provider Dermatology Pediatric Dermatology
DX: L40.0 Psoriasis vulgaris (principal); L40.59 Other psoriatic arthropathy; Z79.899 Other long term (current) drug therapy
CPT/HCPCS: 86480

== ENCOUNTER → 2021-02-14 12:08 | Outpatient (CLI) | payer OTHER, SELFPAY ==
[2021-02-14 11:25] VITALS: BMI 38.0
[2021-02-14 13:56] LABS: AST(SGOT) 14 U/L (15-37); Alanine Aminotransfer ALT/SGPT 26 U/L (13-56); Albumin, Serum 3.7 g/dL (3.2-5.0); Alkaline Phosphatase 44 U/L (45-117); Cholesterol 193 mg/dL (200); Globulin 3.6 g/dL (2.2-4.2); High Density Lipoprotein 48 mg/dL; Protein, Total 7.3 g/dL (6.4-8.2); Thyroid Stim Hormone (TSH) 0.82 uIU/mL (0.358-3.74); Triglycerides 110 mg/dL; Very Low Density Lipoprotein 22 mg/dL (5-40)
== END ==
PROVIDERS: PCP Family Medicine; Referring Provider Internal Medicine Cardiovascular Disease; Visit Provider Internal Medicine Cardiovascular Disease
DX: R07.9 Chest pain, unspecified (principal); R06.00 Dyspnea, unspecified; Z82.49 Family history of ischemic heart disease and other diseases of the circulatory system
CPT/HCPCS: 36415; 80061; 80076; 84443

== ENCOUNTER → 2021-04-05 10:09 | Outpatient (CLI) | payer OTHER, SELFPAY ==
[2021-02-14 11:25] VITALS: BMI 38.0
--- NOTE | 2021-04-05 10:10 | STEWCON_ITS ---
Reason For Study: Dyspnea/SOB Stress Results Protocol: Stress Echocardiogram-[place] Protocol Maximum Predicted HR: 180 bpm Target HR: 153 bpm % Maximum Predicted HR: 91 % DurationHeart Rate Stage (mm:ss) (bpm) BP Comment Baseline 74 116/86no chest pain Stage 1 3:00 116 138/88no chest pain Stage 2 3:00 139 140/88no chest pain Stage 3 3:00 164 148/88no chest pain, mild shortness of breath Recovery 91 128/703ml total definity used, shortness of breath resolved Stress Duration: 9:00 mm:ss Maximum Stress HR: 164 bpm Baseline Echocardiogram Findings Stress Echo Wall motion Data Resting WM Intermediate WM Stress WM ECHO/Stress Test Echo W/Contrast Interpretation Summary Exercise stress echo. 40-year-old lady with a history of significant family history of coronary arter y disease. Stress echocardiogram. Resting EKG demonstrates normal sinus rhythm with a rate of 69 bpm normal inter vals noted. Resting blood pressure is 116/86 mmHg. The patient exercised according to the regular B ruce protocol for a total duration of 9 minutes. The patient completed stage III of the [place] jordyn col. The maximum heart rate attained was 166 bpm which was 92% of the maximum predicted heart ra te the maximum workload was 10.4 metabolic equivalents. At rest there were no ST or T wave omar nges noted to suggest ischemia at peak exercise upsloping ST changes were noted with did not meet the criteria for ischemia. No clinical angina was noted. The peak blood pressure was 148/88 mmHg which was a good blood pressure response to exercise. The test was terminated due to shortness o f breath. No chest pain was noted. Stress echocardiogram. Resting and stress echocardiographic images were obtained with Definity enhance ment. There was reduction of low ventricular cavity size from a baseline of 55% to approximatel y 65%. No wall motion abnormalities were noted to suggest ischemia. Conclusion: Exercise stress echo with no criteria for ischemia at a high workload. Good functional capacity. No arrhythmias noted. Ordering Physician: Bryson Coon Referring Physician: Bryson Coon Performed By: Doris Salazar RDCS
== END ==
PROVIDERS: PCP Family Medicine; Referring Provider Internal Medicine Cardiovascular Disease; Visit Provider Internal Medicine Cardiovascular Disease
DX: R06.00 Dyspnea, unspecified (principal); R06.02 Shortness of breath; R07.9 Chest pain, unspecified; Z82.49 Family history of ischemic heart disease and other diseases of the circulatory system
CPT/HCPCS: 93017; 93350; Q9957; A4216; C8928; J3490

== ENCOUNTER → 2021-04-23 16:51 | Outpatient (CLI) | payer OTHER, SELFPAY ==
[2021-02-14 11:25] VITALS: BMI 38.0
[2021-04-23 18:20] LABS: Erythrocyte Sedimentation Rate 3 mm/hr (0-30)
[2021-04-23 18:21] LABS: Absolute Lymphocyte Count 1.98 X10^3/uL (0.83-4.51); Absolute Neutrophil Count 4.1 X10^3/uL (2.0-7.7); Basophil# 0.03 X10^3/uL; Basophil% 0.4 % (0-1); Eosinophil# 0.13 X10^3/uL; Eosinophils% 1.9 % (0-5); Hematocrit 38.9 % (37-47); Hemoglobin 13.1 g/dL (12.0-15.0); Lymphocyte # 1.98 X10^3/ul (0.83-4.51); Lymphocyte % 29.3 % (19-41); Mean Corp Hgb Conc 33.7 g/dL (32-36); Mean Corpuscular Hgb 31.8 pg (27.0-32.0); Mean Corpuscular Volume 94.4 fL (81-99); Mean Platelet Vol. 11.6 fl (6.2-12.0); Monocyte# 0.49 X10^3/uL; Monocyte% 7.3 % (0-10); NRBC Flagged by Analyzer 0 % (0-5); Neutrophil # 4.09 X10^3/uL (2.7-7.7); Neutrophil % 60.7 % (47-70); Platelet Count 226 K/mm3 (150-450); RBC Distribution Width CV 12.1 % (11.6-14.6); RBC Distribution Width SD 42.1 fl (35.1-43.9); Red Blood Count 4.12 M/mm3 (4.2-5.4); White Blood Count 6.8 K/mm3 (4.4-11.0)
[2021-04-23 18:53] LABS: ALB/GLOB Ratio 1.1 RATIO (0.9-2.4); AST(SGOT) 14 U/L (15-37); Alanine Aminotransfer ALT/SGPT 29 U/L (13-56); Albumin, Serum 3.5 g/dL (3.2-5.0); Alkaline Phosphatase 50 U/L (45-117); Anion Gap 9 (5-15); BUN 11 mg/dL (7-18); BUN/Creat Ratio 14.5 RATIO (10-20); Calcium,Total 8.3 mg/dL (8.5-10.1); Chloride 106 mmol/L (98-107); Creatinine, Serum 0.76 mg/dL (0.55-1.02); EST Glomerular Filtration Rate 90 mL/min (>60); Est Glom Filt Rate - Afr Amer 108 mL/min (>60); Globulin 3.1 g/dL (2.2-4.2); Glucose 132 mg/dL (74-106); Potassium 3.4 mmol/L (3.5-5.1); Protein, Total 6.6 g/dL (6.4-8.2); Sodium Level 140 mmol/L (136-145); Thyroid Stim Hormone (TSH) 0.98 uIU/mL (0.358-3.74)
[2021-04-25 16:09] LABS: Endomysial Antibody IgA Negative (Negative)
[2021-04-25 21:11] LABS: Deamidated Gliadin IgA 6 units (0-19); Deamidated Gliadin IgG 2 units (0-19); Immunoglobulin A 141 mg/dL (87-352); t-Transglutaminase IgA <2 U/mL (0-3)
[2021-04-25 21:12] LABS: ANTINUCLEAR ANTIBODIES DIRECT Negative (Negative)
== END ==
PROVIDERS: PCP Family Medicine; Referring Provider Family Medicine; Visit Provider Family Medicine
DX: R63.5 Abnormal weight gain (principal); L40.50 Arthropathic psoriasis, unspecified; K58.0 Irritable bowel syndrome with diarrhea
CPT/HCPCS: 36415; 80053; 82784; 83516; 84443; 85025; 85652; 86038; 86255

== ENCOUNTER → 2021-06-21 09:12 | Outpatient (CLI) | payer OTHER, SELFPAY ==
[2021-06-21 11:22] LABS: Anion Gap 6 (5-15); BUN 13 mg/dL (7-18); Calcium,Total 8.5 mg/dL (8.5-10.1); Chloride 107 mmol/L (98-107); Creatinine, Serum 0.68 mg/dL (0.55-1.02); EST Glomerular Filtration Rate 101 mL/min (>60); Est Glom Filt Rate - Afr Amer 122 mL/min (>60); Glucose 111 mg/dL (74-106); Potassium 4.1 mmol/L (3.5-5.1); Sodium Level 136 mmol/L (136-145)
[2021-06-21 11:57] LABS: Hepatitis B Surface Antibody Reactive; Hepatitis B Surface Antigen Non-Reactive (Nonreactive); Hepatitis C Antibody Non-Reactive (Nonreactive)
[2021-06-28 20:08] LABS: QNTFERON TB Mitogen Value > 10.00 IU/mL (.); QNTFERON TB Nil Value 0.49 IU/mL (.); QNTFERON TB1+ Ag Value 0.48 IU/mL (.); QNTFERON TB2+ Ag Value 0.53 IU/mL (.)
[2021-06-28 22:41] LABS: Hepatitis B Core Ab Total Negative (Negative); QNTIFERON TB Positive Criteria Negative (Negative)
== END ==
PROVIDERS: PCP Family Medicine; Referring Provider Physician Assistant; Visit Provider Physician Assistant
DX: L40.0 Psoriasis vulgaris (principal); L23.7 Allergic contact dermatitis due to plants, except food; L73.2 Hidradenitis suppurativa; L40.59 Other psoriatic arthropathy; Z79.899 Other long term (current) drug therapy
CPT/HCPCS: 36415; 80048; 86480; 86704; 86706; 86803; 87340

== ENCOUNTER → 2021-10-19 12:57 | Outpatient (CLI) | payer OTHER, SELFPAY ==
--- NOTE | 2021-10-19 12:58 | BI_ITS ---
MAMMOGRAPHY - BILATERAL SCREENING REASON FOR EXAM: Female, 41 years old. Routine annual screening examination. PERTINENT HISTORY: Non-contributory. TECHNIQUE: Digital bilateral breast gail (3D mammographic acquisition) in the CC and MLO projections. 2-D mediolateral oblique (MLO) and craniocaudad (CC) views of both breasts were obtained. CAD: Full Field Digital Mammography with Computer Added Detection was performed. COMPARISON: Comparison is made with prior examination dated 08/14/2020 and 05/05/2018. FINDINGS: Breast Composition: There are scattered areas of fibroglandular density. There are no dominant masses or suspicious calcifications. No other significant abnormalities are identified. There has been no significant change since the prior study. BI/SCRN MAMM (CAD)W/GAIL BILAT IMPRESSION: Stable bilateral screening mammogram. Yearly follow-up mammogram recommended. (A) ASSESSMENT CATEGORY: BIRADS Category 1: Negative. A letter regarding these results will be sent to the patient by the facility within 30 days. Approximately 10% of breast cancers are not detected by mammography. A normal mammogram should not delay biopsy of a clinically suspicious abnormality. [id number] Electronically Signed: Zoltan Hope MD at 14:12 EST , Service support ,
== END ==
PROVIDERS: PCP Family Medicine; Referring Provider Obstetrics & Gynecology; Visit Provider Obstetrics & Gynecology
DX: Z12.31 Encounter for screening mammogram for malignant neoplasm of breast (principal)
CPT/HCPCS: 77063; 77067

== ENCOUNTER 2021-12-26 12:00 | Outpatient (CLI) | payer OTHER, SELFPAY ==
[2021-12-26 15:09] LABS: ALB/GLOB Ratio 1.1 RATIO (0.9-2.4); AST(SGOT) 15 U/L (15-37); Alanine Aminotransfer ALT/SGPT 34 U/L (13-56); Albumin, Serum 3.8 g/dL (3.2-5.0); Alkaline Phosphatase 45 U/L (45-117); Anion Gap 5 (5-15); BUN 16 mg/dL (7-18); BUN/Creat Ratio 21.7 RATIO (10-20); Calcium,Total 8.5 mg/dL (8.5-10.1); Chloride 105 mmol/L (98-107); Creatinine, Serum 0.74 mg/dL (0.55-1.02); EST Glomerular Filtration Rate 92 mL/min (>60); Est Glom Filt Rate - Afr Amer 112 mL/min (>60); Globulin 3.4 g/dL (2.2-4.2); Glucose 121 mg/dL (74-106); Potassium 3.9 mmol/L (3.5-5.1); Protein, Total 7.2 g/dL (6.4-8.2); Sodium Level 138 mmol/L (136-145)
[2021-12-26 16:07] LABS: Hepatitis B Surface Antibody Reactive; Hepatitis B Surface Antigen Non-Reactive (Nonreactive); Hepatitis C Antibody Non-Reactive (Nonreactive)
[2021-12-28 16:10] LABS: QNTFERON TB Mitogen Value > 10.00 IU/mL (.); QNTFERON TB Nil Value 2.15 IU/mL (.); QNTFERON TB1+ Ag Value 1.13 IU/mL (.); QNTFERON TB2+ Ag Value 1.04 IU/mL (.)
[2021-12-28 17:25] LABS: Hepatitis B Core Ab Total Negative (Negative); QNTIFERON TB Positive Criteria Negative (Negative)
== END 2021-12-26 23:59 | disposition home or self-care (01) ==
LOC: MTLAB 12:00
PROVIDERS: PCP Family Medicine; Referring Provider Physician Assistant; Visit Provider Physician Assistant
DX: L40.0 Psoriasis vulgaris (principal); L40.59 Other psoriatic arthropathy; L73.2 Hidradenitis suppurativa; L82.1 Other seborrheic keratosis; L91.8 Other hypertrophic disorders of the skin; Z79.899 Other long term (current) drug therapy
CPT/HCPCS: 36415; 80053; 86480; 86704; 86706; 86803; 87340

== ENCOUNTER 2022-04-15 09:20 | Outpatient (RCR) | payer OTHER, SELFPAY ==
--- NOTE | 2022-04-15 10:32 | HP.PTEVAL_ITS ---
Patient's Visit Information SYEDA ABREU is a 41 year old F referred to Physical Therapy by Dr. Scar Zavala MD with a diagnosis of vertigo. Date of Evaluation: 04/15/22 Physical Therapist: Apolinar Ding DPT, OCS, CSCS - Visit Plan Frequency: 1x/Week Duration: 2-4 Weeks Plan: weekly as needed to monitor positional and progress VOR, ot to call after cruise if needed to return. Will call this week prior to departure if situation worsens. - Subjective I have vdertigo intermittently for 3 months starting as day progressed. has had two bad episodes overall with bad spinning lasting 3-4 hours. Afterwards feels positionally spacey and foggy alot. Got meclizine and Zofran to take. Tried Nadege maneuver on own and it made it worse. Going on a cruise this weekend. Second episode was tanning lying flat and looking overhead. Got instantly dizzy instantly. Was fine last week. yesterday had intermittent symptoms lying on L side in bed. Rapid head movements acan make her nauseous. Stable now and wants to manage this. Has cruise this weekend. foggy with computer work. Careful with balance but safe. 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 - Objective Walks i and normal without balance deficits. transfers and steps I without rail or UE. Neck and UE AROM WFL and without pain, hesitant to look up while walking. - B hallpike shivani but dizzy to r not present L, treated with Nadege today. Taught BD for HEP if needed. - roll test. Oculomotor: no nystagmus with gaze or head shake. - head thrust. - skew eye deviation. - ocular tilt. Pursuit is normal. Saccades get slow but asymptomatic. VOR is symptomatic H and V. - Balance/Special Test Scores Functional Gait Assessment Score: 30 % Disability: 0 Dizziness Score: 40 - Goals Goal 1:: Pt feel 100% back to normal with activity Goal Time Frame: 2-4 Weeks Goal 2:: Able to9 tolerate computer without symptoms for full day of work. Goal Time Frame: 2-4 Weeks Goal 3:: Pt to go on cruise without limitations Goal Time Frame: 2-4 Weeks - Rehabilitation Potential Physical Therapy Diagnosis: Likely unilateral vestibular hypofucntion Rehabilitation Potential: Good - Anticipated Interventions Patient/Client Instruction: Educate patient on: Condition, Plan of Care For the Purpose of:: To increase tolerance to activity/condition/position Comment: vestibular ex For the Purpose of:: To increase tolerance to activity/condition/position Thank you for the opportunity to evaluate your patient. For Medicare and Medicare HMO plans, please review the plan of care and approve it. It will need to be FAXED BACK to us at [phone] for Medicare purposes. For Medicare only, by signing this I certify the plan of care. Please let me know if there are questions or concerns regarding this plan of c are. Physician Signature: Date:
--- NOTE | 2022-07-23 13:18 | HP.PT.NRP ---
SYEDA ABREU was seen in my office for initial evaluation on 04/15/22. The following Plan of Care was established for this patient: Initial Frequency: 1x/Week Initial Duration: 2-4 Weeks Patient/Client Instruction: Educate patient on: Condition, Plan of Care For the Purpose of:: To increase tolerance to activity/condition/position For the Purpose of:: To increase tolerance to activity/condition/position This patient was last seen in our office 04/15/22. Pertinent comments regarding their Physical therapy will appear below: Pt seen for initial evaluation and given HEP. She was to f/u weekly but did not schedule or attend any further visits. at this point, it has been over 3 months and I will discontinue from my care. At this point I will be discontinuing this patient from physical therapy. I would be happy to see this patient again in the future if found appropriate by the physician. Thank you! Apolinar Ding, DPT, OCS, CSCS Balance/Gait/Functional tests - Balance/Special Test Scores Functional Gait Assessment Score: 30 % Disability: 0 Dizziness Score: 40
== END 2022-04-15 19:00 | disposition home or self-care (01) ==
LOC: PT 09:20
PROVIDERS: PCP Family Medicine; Referring Provider Family Medicine; Visit Provider Family Medicine
DX: R42 Dizziness and giddiness (principal)
CPT/HCPCS: 97110; 97162

== ENCOUNTER → 2022-09-20 | Outpatient (CLI) | payer OTHER, SELFPAY ==
--- NOTE | 2022-09-20 12:15 | MRI_ITS ---
STUDY: MRI BRAIN WITHOUT CONTRAST REASON FOR EXAM: Female, 42 years old. vertigo, dizziness TECHNIQUE: Standardized multiplanar fat and water weighted pulse sequences were obtained. COMPARISON: None. FINDINGS: Normal size of the ventricles and extra-axial spaces for the patient''s age. Normal white matter tracts of the supratentorial brain. Normal bilateral basal ganglia. Normal thalami. There is no extra-axial fluid accumulation. Normal flow voids within the major intracranial circulation suggesting patency by spin echo criteria. Normal sella turcica, pituitary gland, infundibular stalk, optic chiasm and hypothalamus. Normal tectal plate and pineal gland. Normal midbrain, allen and medulla. Normal cerebellum. Normal basal cisterns. Normal bilateral temporal bones. Normal bilateral internal auditory canals. No demonstrated orbital abnormality, within the constraints of a routine brain study. Normal visualized paranasal sinuses. Normal calvarium and skull base. Normal visualized soft tissue structures. Normal visualized upper cervical spine. MRI/Brain without Contrast IMPRESSION: Normal unenhanced MRI of the brain. Electronically Signed: Dominik Doshi MD at 12:47 EST ,
== END | disposition home or self-care (01) ==
LOC: MRI 11:49
PROVIDERS: PCP Family Medicine; Referring Provider Family Medicine; Visit Provider Family Medicine
DX: R42 Dizziness and giddiness (principal)
CPT/HCPCS: 70551

== ENCOUNTER → 2022-10-21 | Outpatient (CLI) | payer OTHER, SELFPAY ==
--- NOTE | 2022-10-21 10:19 | BI_ITS ---
MAMMOGRAPHY - BILATERAL SCREENING REASON FOR EXAM: Female, 42 years old. Routine annual screening examination. PERTINENT HISTORY: Non-contributory. TECHNIQUE: Digital bilateral breast gail (3D mammographic acquisition) in the CC and MLO projections. 2-D mediolateral oblique (MLO) and craniocaudad (CC) views of both breasts were obtained. CAD: Full Field Digital Mammography with Computer Added Detection was performed. COMPARISON: Comparison is made with prior study dated 10/19/2021 and 08/14/2020. FINDINGS: Breast Composition: There are scattered areas of fibroglandular density. There are no dominant masses or suspicious calcifications. No other significant abnormalities are identified. There has been no significant change since the prior study. BI/SCRN MAMM (CAD)W/GAIL BILAT IMPRESSION: Stable bilateral screening mammogram. Yearly follow-up mammogram recommended. (A) ASSESSMENT CATEGORY: BIRADS Category 1: Negative. A letter regarding these results will be sent to the patient by the facility within 30 days. Approximately 10% of breast cancers are not detected by mammography. A normal mammogram should not delay biopsy of a clinically suspicious abnormality. [id number] Electronically Signed: Zoltan Hope MD at 9:07 EST ,
== END | disposition home or self-care (01) ==
PROVIDERS: PCP Family Medicine; Referring Provider Family Medicine; Visit Provider Family Medicine
DX: Z12.31 Encounter for screening mammogram for malignant neoplasm of breast (principal)
CPT/HCPCS: 77063; 77067

== ENCOUNTER → 2022-11-14 | Outpatient (CLI) | payer OTHER, SELFPAY ==
[2022-11-14 16:02] LABS: Erythrocyte Sedimentation Rate 5 mm/hr (0-30)
[2022-11-14 16:05] LABS: Absolute Lymphocyte Count 2.12 X10^3/uL (0.83-4.51); Absolute Neutrophil Count 2.7 X10^3/uL (2.0-7.7); Basophil# 0.03 X10^3/uL; Basophil% 0.6 % (0-1); Eosinophil# 0.06 X10^3/uL; Eosinophils% 1.1 % (0-5); Hematocrit 40.2 % (37-47); Hemoglobin 13.7 g/dL (12.0-15.0); Lymphocyte # 2.12 X10^3/ul (0.83-4.51); Mean Corp Hgb Conc 34.1 g/dL (32-36); Mean Corpuscular Hgb 31.7 pg (27.0-32.0); Mean Corpuscular Volume 93.1 fL (81-99); Mean Platelet Vol. 12.3 fl (6.2-12.0); Monocyte# 0.46 X10^3/uL; Monocyte% 8.5 % (0-10); NRBC Flagged by Analyzer 0 % (0-5); Neutrophil # 2.74 X10^3/uL (2.7-7.7); Neutrophil % 50.4 % (47-70); Platelet Count 193 K/mm3 (150-450); RBC Distribution Width CV 11.9 % (11.6-14.6); RBC Distribution Width SD 40.2 fl (35.1-43.9); Red Blood Count 4.32 M/mm3 (4.2-5.4); White Blood Count 5.4 K/mm3 (4.4-11.0)
[2022-11-14 16:31] LABS: ALB/GLOB Ratio 1.2 RATIO (0.9-2.4); AST(SGOT) 11 U/L (15-37); Alanine Aminotransfer ALT/SGPT 21 U/L (13-56); Albumin, Serum 4.1 g/dL (3.2-5.0); Alkaline Phosphatase 36 U/L (45-117); Anion Gap 4 (5-15); BUN 17 mg/dL (7-18); BUN/Creat Ratio 23.4 RATIO (10-20); Chloride 108 mmol/L (98-107); Creatinine, Serum 0.73 mg/dL (0.55-1.02); EST Glomerular Filtration Rate 93 mL/min (>60); Est Glom Filt Rate - Afr Amer 113 mL/min (>60); Globulin 3.3 g/dL (2.2-4.2); Glucose 85 mg/dL (74-106); LDH 149 U/L (84-246); Potassium 3.5 mmol/L (3.5-5.1); Protein, Total 7.4 g/dL (6.4-8.2); Sodium Level 137 mmol/L (136-145)
[2022-11-16 17:07] LABS: Endomysial Antibody IgA Negative (Negative)
[2022-11-17 12:04] LABS: Immunoglobulin A 165 mg/dL (87-352); t-Transglutaminase IgA <2 U/mL (0-3)
[2022-11-18 17:07] LABS: Anti-Centromere B Ab <0.2 AI (0.0-0.9); Anti-Chromatin <0.2 AI (0.0-0.9); Anti-Jo <0.2 AI (0.0-0.9); Anti-Scleroderma-70 AB <0.2 AI (0.0-0.9); RNP Ab <0.2 AI (0.0-0.9); SJOGREN'S Anti-SS-A test < 0.2 AI (0.0-0.9); SJOGREN'S Anti-SS-B test < 0.2 AI (0.0-0.9); Smith Ab <0.2 AI (0.0-0.9)
[2022-11-18 21:30] LABS: Anti-dsDNA Ab 1 IU/mL (0-9)
[2022-11-19 08:09] LABS: Albumin 4.2 g/dL (2.9-4.4); Alpha-1-Globulins 0.3 g/dL (0.0-0.4); Alpha-2-Globulins 0.8 g/dL (0.4-1.0); Cytoplasmic Ab (C-ANCA) <1:20 titer (Neg:<1:20); Immunoglobulin A 161 mg/dL (87-352); Immunoglobulin E < 2 IU/mL (6-495); Immunoglobulin G 858 mg/dL (586-1602); Immunoglobulin M 62 mg/dL (26-217); PROEL- TOTAL PROTEIN 7.2 g/dL (6.0-8.5)
[2022-11-19 14:12] LABS: Perinuclear Ab (P-ANCA) <1:20 titer (Neg:<1:20)
== END | disposition home or self-care (01) ==
PROVIDERS: PCP Family Medicine; Visit Provider Internal Medicine Gastroenterology
DX: R19.7 Diarrhea, unspecified (principal)
CPT/HCPCS: 80053; 82784; 82785; 83516; 83615; 84165; 85025; 85652; 86140; 86225; 86235; 86255; 86256; 86334

== ENCOUNTER → 2022-11-18 | Outpatient (CLI) | payer OTHER, SELFPAY | END | disposition home or self-care (01) | LOC: LAB 08:41 | PROVIDERS: PCP Family Medicine; Referring Provider Internal Medicine Gastroenterology; Visit Provider Internal Medicine Gastroenterology | DX: R19.7 Diarrhea, unspecified (principal) | CPT/HCPCS: 83630; 87506 ==

== ENCOUNTER → 2023-09-30 | Outpatient (CLI) | payer OTHER, SELFPAY ==
[2023-09-30 10:05] LABS: Absolute Neutrophil Count 3.2 X10^3/uL (2.0-7.7); Basophil# 0.04 X10^3/uL; Basophil% 0.6 % (0-1); Eosinophil# 0.08 X10^3/uL; Eosinophils% 1.2 % (0-5); Hematocrit 40.7 % (37-47); Hemoglobin 13.4 g/dL (12.0-15.0); Lymphocyte % 38.1 % (19-41); Mean Corp Hgb Conc 32.9 g/dL (32-36); Mean Corpuscular Hgb 31.8 pg (27.0-32.0); Mean Corpuscular Volume 96.7 fL (81-99); Mean Platelet Vol. 11.6 fl (6.2-12.0); Monocyte% 10.7 % (0-10); NRBC Flagged by Analyzer 0 % (0-5); Neutrophil # 3.23 X10^3/uL (2.7-7.7); Neutrophil % 49.2 % (47-70); Platelet Count 188 K/mm3 (150-450); RBC Distribution Width CV 12.6 % (11.6-14.6); RBC Distribution Width SD 44.7 fl (35.1-43.9); Red Blood Count 4.21 M/mm3 (4.2-5.4); White Blood Count 6.6 K/mm3 (4.4-11.0)
[2023-09-30 11:19] LABS: ALB/GLOB Ratio 1.3 RATIO (0.9-2.4); AST(SGOT) 13 U/L (15-37); Alanine Aminotransfer ALT/SGPT 23 U/L (13-56); Albumin, Serum 3.9 g/dL (3.2-5.0); Alkaline Phosphatase 33 U/L (45-117); Anion Gap 2 (5-15); BUN 15 mg/dL (7-18); BUN/Creat Ratio 18.8 RATIO (10-20); Calcium,Total 8.9 mg/dL (8.5-10.1); Chloride 108 mmol/L (98-107); EST Glomerular Filtration Rate 83 mL/min (>60); Est Glom Filt Rate - Afr Amer 101 mL/min (>60); Globulin 3.1 g/dL (2.2-4.2); Glucose 88 mg/dL (74-106); Potassium 4.3 mmol/L (3.5-5.1); Sodium Level 136 mmol/L (136-145)
== END | disposition home or self-care (01) ==
LOC: LAB 09:19
PROVIDERS: PCP Family Medicine; Referring Provider Family Medicine; Visit Provider Family Medicine
DX: E66.9 Obesity, unspecified (principal); R42 Dizziness and giddiness
CPT/HCPCS: 36415; 80053; 85025

== ENCOUNTER → 2023-12-08 | Outpatient (CLI) | payer OTHER, SELFPAY ==
--- NOTE | 2023-12-08 08:16 | BI_ITS ---
MAMMOGRAPHY - BILATERAL SCREENING REASON FOR EXAM: Female, 43 years old. Routine annual screening examination. PERTINENT HISTORY: Non-contributory. TECHNIQUE: Digital bilateral breast gail (3D mammographic acquisition) in the CC and MLO projections. 2-D mediolateral oblique (MLO) and craniocaudad (CC) views of both breasts were obtained. CAD: Full Field Digital Mammography with Computer Added Detection was performed. COMPARISON: Comparison is made with prior study dated October 21, 2022 and October 19, 2021. FINDINGS: Breast Composition: There are scattered areas of fibroglandular density. There are no dominant masses or suspicious calcifications. No other significant abnormalities are identified. There has been no significant change since the prior study. BI/SCRN MAMM (CAD)W/GAIL BILAT IMPRESSION: Stable bilateral screening mammogram. Yearly follow-up mammogram recommended. (A) ASSESSMENT CATEGORY: BIRADS Category 1: Negative. A letter regarding these results will be sent to the patient by the facility within 30 days. Approximately 10% of breast cancers are not detected by mammography. A normal mammogram should not delay biopsy of a clinically suspicious abnormality. [id number] Electronically Signed: Zoltan Hope MD at 9:30 EST ,
--- OUTSIDE RECORDS SUMMARY | 2023-12-08 08:43 | XMS RPT_ITS | CCD ---
Author Name Unknown Address [facility] [employer] [facility] [address] [place] [address] Organization [facility] Care Team Providers Care Measurement Superintendent Name Role Phone Renetta Bowden MD Primary Care Provider RENETTA BOWDEN Attending Unavailable RENETTA BOWDEN Primary Care Unavailable RENETTA BOWDEN Primary Care Unavailable PIERO FLEMING Referring Unavailable PIERO FLEMING Attending Unavailable RENETTA BOWDEN Attending Unavailable RENETTA BOWDEN Primary Care Unavailable RENETTA BOWDEN Primary Care Unavailable PIERO FLEMING Attending Unavailable RENETTA BOWDEN Primary Care Unavailable RENETTA BOWDEN Attending Unavailable RENETTA BOWDEN Primary Care Unavailable RENETTA BOWDEN Attending Unavailable Medications Current Medications Medication Drug Class(es) Dates Sig (Normalized) Sig (Original) doxycycline hyclate 100 mg oral capsule (4 sources) Tetracycline-clas s Drug Start: 11-27-2023 End: 12-07-2023 take 1 capsule by mouth twice daily doxycycline hyclate (VIBRAMYCIN) 100 mg capsule Take 1 capsule by mouth two times a day for 10 days. 20 capsule 0 11/27/2023 12/07/2023 Active Completed/Discontinued Medications Medication Drug Class(es) Dates Sig (Normalized) Sig (Original) 0.8 ml adalimumab 100 mg/ml auto-injector (14 sources) Tumor Necrosis Factor Lazaro Start: 11-05-2023 HUMIRA,CF, PEN 80 mg/0.8 mL pen kit Problems Active Problems Problem Classification Problem Date Documented Da te Episodic/Chronic Anxiety disorders (20 sources) Panic attack; Translations: [Panic disorder [episodic paroxysmal anxiety]] Onset: 10-13-2014 Chronic Cancer of cervix (2 sources) Atypical squamous cells of undetermined significance on cervical Papanicolaou smear; Translations: [Atypical squamous cells of undetermined significance on cytologic smear of cervix (ASC-US)] Onset: 11-27-2023 Episodic Conditions associated with dizziness or vertigo (3 sources) Vertigo; Translations: [Dizziness and giddiness] Episodic Immunizations and screening for infectious disease (3 sources) Needs influenza immunization; Translations: [Encounter for immunization] Onset: 11-27-2023 Episodic Other gastrointestinal disorders (20 sources) Irritable bowel syndrome; Translations: [Irritable bowel syndrome without diarrhea] 07-21-2020 Chronic Other inflammatory condition of skin (20 sources) Psoriasis; Translations: [Psoriasis, unspecified] Onset: 07-21-2020 07-21-2020 Chronic Other nutritional; endocrine; and metabolic disorders (1 source) Body mass index 40+ - severely obese; Translations: [Morbid (severe) obesity due to excess calories] Chronic Other nutritional; endocrine; and metabolic disorders (3 sources) Obese class II; Translations: [Obesity, unspecified] Chronic Other nutritional; endocrine; and metabolic disorders (3 sources) Obese class I; Translations: [Obesity, unspecified] Chronic Other screening for suspected conditions (not mental disorders or infectious disease) (3 sources) Cancer cervix screening status; Translations: [Encounter for screening for malignant neoplasm of cervix] Onset: 11-27-2023 Episodic Other upper respiratory disease (1 source) Pain in throat; Translations: [Pain in throat] Episodic Residual codes; unclassified (1 source) Decreased libido; Translations: [Decreased libido] Onset: 11-27-2023 Episodic Sexually transmitted infections (not HIV or hepatitis) (1 source) Cervical high risk human papillomavirus (HPV) DNA test positive; Translations: [Cervical high risk human papillomavirus (HPV) DNA test positive] Onset: 11-27-2023 Episodic Past or Other Problems Problem Classification Problem Date Documented Date Episodic/Chronic Contraceptive and procreative management (5 sources) Contraception status; Translations: [Encounter for removal and reinsertion of intrauterine contraceptive device] Onset: 01-21-2023 Episodic Results Test Name Value Interpretation Reference Range Facil ity Vital Signs Date Time Vital Sign Value Performing Clinician Anabel reddy 09-30-2023 08:43-0500 Diastolic blood pressure 78 mm[Hg] Renetta Bowden MD Work Phone: [facility] 09-30-2023 08:43-0500 Heart rate 76 /min Renetta Bowden MD Work Phone: [facility] 09-30-2023 08:43-0500 Respiratory rate 16 /min Renetta Bowden MD Work Phone: [facility] 09-30-2023 08:43-0500 Systolic blood pressure 112 mm[Hg] Renetta Bowden MD Work Phone: [facility] 09-30-2023 08:40-0500 Body weight 88.72 kg Renetta Bowden MD Work Phone: [facility] 06-24-2023 08:27-0400 Body weight 93.44 kg Renetta Bowden MD Work Phone: [facility] 06-24-2023 08:27-0400 Diastolic blood pressure 74 mm[Hg] Renetta Bowden MD Work Phone: [facility] 06-24-2023 08:27-0400 Heart rate 78 /min Renetta Bowden MD Work Phone: [facility] 06-24-2023 08:27-0400 Respiratory rate 16 /min Renetta Bowden MD Work Phone: [facility] 06-24-2023 08:27-0400 Systolic blood pressure 110 mm[Hg] Renetta Bowden MD Work Phone: [facility] 01-21-2023 11:00-0400 Body weight 107.05 kg Piero Fleming MD Work Phone: [facility] 01-21-2023 11:00-0400 Diastolic blood pressure 72 mm[Hg] Piero Fleming MD Work Phone: [facility] 01-21-2023 11:00-0400 Systolic blood pressure 110 mm[Hg] Piero Fleming MD Work Phone: [facility] 12-13-2022 10:34-0500 Body weight 108.45 kg Renetta Bowden MD Work Phone: [facility] 12-13-2022 10:34-0500 Diastolic blood pressure 70 mm[Hg] Renetta Bowden MD Work Phone: [facility] 12-13-2022 10:34-0500 Heart rate 74 /min Renetta Bowden MD Work Phone: [facility] 12-13-2022 10:34-0500 Respiratory rate 16 /min Renetta Bowden MD Work Phone: [facility] 12-13-2022 10:34-0500 Systolic blood pressure 120 mm[Hg] Renetta Bowden MD Work Phone: [facility] 10-16-2022 11:13-0500 Body weight 117.03 kg Piero Fleming MD Work Phone: [facility] 10-16-2022 11:13-0500 Diastolic blood pressure 74 mm[Hg] Piero Fleming MD Work Phone: [facility] 10-16-2022 11:13-0500 Systolic blood pressure 118 mm[Hg] Piero Fleming MD Work Phone: [facility] 10-15-2022 10:53-0500 Body weight 116.39 kg Renetta Bowden MD Work Phone: [facility] 10-15-2022 10:53-0500 Diastolic blood pressure 84 mm[Hg] Renetta Bowden MD Work Phone: [facility] 10-15-2022 10:53-0500 Heart rate 82 /min Renetta Bowden MD Work Phone: [facility] 10-15-2022 10:53-0500 Respiratory rate 16 /min Renetta Bowden MD Work Phone: [facility] 10-15-2022 10:53-0500 Systolic blood pressure 136 mm[Hg] Renetta Bowden MD Work Phone: [facility] 10-03-2022 10:44-0500 Body height 182.9 cm Piero Fleming MD Work Phone: [facility] 10-03-2022 10:44-0500 Body weight 117.94 kg Piero Fleming MD Work Phone: [facility] 10-03-2022 10:44-0500 Diastolic blood pressure 64 mm[Hg] Piero Fleming MD Work Phone: [facility] 10-03-2022 10:44-0500 Systolic blood pressure 108 mm[Hg] Piero Fleming MD Work Phone: [facility] 09-06-2022 14:08-0400 Body weight 117.94 kg Renetta Bowden MD Work Phone: [facility] 09-06-2022 14:08-0400 Diastolic blood pressure 74 mm[Hg] Renetta Bowden MD Work Phone: [facility] 09-06-2022 14:08-0400 Heart rate 74 /min Renetta Bowden MD Work Phone: [facility] 09-06-2022 14:08-0400 Respiratory rate 16 /min Renetta Bowden MD Work Phone: [facility] 09-06-2022 14:08-0400 Systolic blood pressure 124 mm[Hg] Renetta Bowden MD Work Phone: [facility] 04-08-2022 11:15-0400 Diastolic blood pressure 68 mm[Hg] Renetta Bowden MD Work Phone: [facility] 04-08-2022 11:15-0400 Heart rate 83 /min Renetta Bowden MD Work Phone: [facility] 04-08-2022 11:15-0400 Respiratory rate 18 /min Renetta Bowden MD Work Phone: [facility] 04-08-2022 11:15-0400 SaO2% (BldA) [Mass fraction] 99 % Renetta Bowden MD Work Phone: [facility] 04-08-2022 11:15-0400 Systolic blood pressure 124 mm[Hg] Renetta Bowden MD Work Phone: [facility] Encounters Encounter Date Encounter Type Care Provider Facility Start: 12-05-2023 ambulatory Renetta jackson MD Work Phone: [facility] Procedures Date Procedure Procedure Detail Performing Clinician Start: 06-24-2023 Glucose [Mass/volume ] in Serum or Plasma Outside Pcp(Historical) Start: 06-24-2023 Lipid panel Outside Pc p(Historical) Start: 10-21-2022 Mammography Renetta aguirre MD Work Phone: Start: 10-16-2022 Urine test visual color cmprsn meths Piero Fleming MD Work Phone: Start: 09-06-2022 INFLUENZA VACCINE QUADRIVALENT 6 MO - 64 YRS IM Renetta Bowden MD Work Phone: Start: 10-19-2021 Mammography Renetta aguirre MD Work Phone: Start: 07-21-2020 Adult depression scr eening assessment Renetta Bowden MD Work Phone: Plan of Treatment Date Care Activity Detail Author Start: 11-27-2028 Screening for malign ant neoplasm of cervix [facility] Start: 10-03-2027 HPV TESTING HPV TESTING [facility] Start: 10-03-2027 PAP TESTING PAP TESTING [facility] Start: 10-03-2027 Screening for malign ant neoplasm of cervix [facility] Start: 09-30-2024 Covid-19 Vaccine ( season) Covid-19 Vaccine ( season) [facility] Immunizations Immunization Date Immunization Notes Care Provider Fa cility 09-06-2022 influenza, injectabl e, quadrivalent, contains preservative Renetta Bowden MD Work Phone: [facility] 09-06-2022 influenza virus vaccine, unspecified formulation Renetta Bowden MD Work Phone: [facility] 09-05-2021 influenza, seasonal, injectable Piero Fleming MD Work Phone: [facility] Work Phone: 09-05-2021 influenza, seasonal, injectable, preservative free Renetta Bowden MD Work Phone: [facility] Work Phone: 08-09-2020 influenza, seasonal, injectable Piero Fleming MD Work Phone: [facility] Work Phone: 08-09-2020 influenza, seasonal, injectable, preservative free Renetta Bowden MD Work Phone: [facility] Work Phone: 08-11-2019 influenza, injectabl e, quadrivalent, contains preservative Renetta Bowden MD Work Phone: [facility] 08-17-2018 influenza, seasonal, injectable Piero Fleming MD Work Phone: [facility] Work Phone: 08-17-2018 influenza, seasonal, injectable, preservative free Renetta Bowden MD Work Phone: [facility] Work Phone: 07-30-2017 influenza, seasonal, injectable Piero Fleming MD Work Phone: [facility] Work Phone: 07-30-2017 influenza, seasonal, injectable, preservative free Renetta Bowden MD Work Phone: [facility] Work Phone: 08-19-2016 influenza, seasonal, injectable Piero Fleming MD Work Phone: [facility] Work Phone: 08-19-2016 influenza, seasonal, injectable, preservative free Renetta Bowden MD Work Phone: [facility] Work Phone: 08-02-2015 influenza, seasonal, injectable Piero Fleming MD Work Phone: [facility] Work Phone: 08-02-2015 influenza, seasonal, injectable, preservative free Renetta Bowden MD Work Phone: [facility] Work Phone: 08-03-2014 influenza, seasonal, injectable Piero Fleming MD Work Phone: [facility] Work Phone: 08-03-2014 influenza, seasonal, injectable, preservative free Renetta Bowden MD Work Phone: [facility] Work Phone: 09-02-2013 influenza, seasonal, injectable, preservative free Renetta Bowden MD Work Phone: [facility] Work Phone: 09-03-2012 influenza virus vaccine, unspecified formulation Renetta Bowden MD Work Phone: [facility] 02-10-2012 measles, mumps and rubella virus vaccine Renetta Bowden MD Work Phone: [facility] 01-16-2012 influenza, seasonal, injectable Renetta Bowden MD Work Phone: [facility] 07-14-2009 tetanus toxoid, reduced diphtheria toxoid, and acellular pertussis vaccine, adsorbed Renetta Bowden MD Work Phone: [facility] 11-03-2008 tetanus toxoid, reduced diphtheria toxoid, and acellular pertussis vaccine, adsorbed Renetta Bowden MD Work Phone: [facility] 06-01-2007 human papilloma viru s vaccine, quadrivalent Renetta Bowden MD Work Phone: [facility] Work Phone: Payers Date Payer Category Payer Private Health Insurance [employer] A [facility] [id number] 2022-Present [phone] [address] [place] [address] PPO [id number] 2022 Private Health Insurance [id number] 2020 Unknown MMO MMO TPA [id number] 2020-Present [address] [place] [address] PPO [id number] 2005 Unknown [id number] Social History Date Type Detail Facility Start: 10-01-2018 End: 09-06-2022 Tobacco smoking status NHIS Ex-smoker [facility] End: 08-23-2006 History of tobacco use Current smoker [facility] Start: 10-02-2021 End: 11-27-2023 Alcohol intake Current drinker of alcohol (finding) [facility] Start: 09-27-2020 End: 12-13-2022 History SDOH Alcohol Frequency 3 [facility] Start: 09-27-2020 End: 12-13-2022 History SDOH Alcohol Std Drinks 1 [facility] Start: 01-23-2009 History SDOH Alcohol Comment Occasionally [facility] Start: 07-21-2020 End: 12-13-2022 History SDOH Social Connections Phone 5 [facility] Start: 07-21-2020 End: 12-13-2022 History SDOH Social Connections Living 8 [facility] Start: 07-21-2020 End: 12-13-2022 History SDOH Physical Activity DPW 2 [facility] Start: 09-27-2020 History SDOH Financial 4 [facility] Start: 07-21-2020 Education 17 [facility] Start: 10-01-2018 End: 09-06-2022 Tobacco Comment Not smoking the last 2 years after restarting [facility] Start: 1980 Sex Assigned At Female [facility] Start: 03-29-2022 End: 10-03-2022 Exposure to SARS-CoV-2 (event) Not sure [facility] End: 08-23-2006 History of tobacco use Cigarette Smoker [facility] Start: 10-01-2018 End: 09-06-2022 Tobacco use and exposure Smokeless tobacco non-user [facility] Start: 12-12-2022 End: 03-25-2023 History of Social function [facility] Start: 12-12-2022 End: 03-25-2023 Social connection and isolation panel [facility] Do you belong to any clubs or organizations such as gnosticist groups, unions, fraternal or athletic groups, or school groups? Yes [facility] Are you now , , , , never or living with a partner? Living with partner [facility] How often to you hav e a drink containing alcohol? 2-4 times a month [facility] How many standard dr inks containing alcohol do you have on a typical day? 1 or 2 [facility] How often do you hav e 6 or more drinks on 1 occasion? Never [facility] How hard is it for y ou to pay for the very basics like food, housing, medical care, and heating Not hard at all [facility] Do you feel stress - tense, restless, nervous, or anxious, or unable to sleep at night because your mind is troubled all the time - these days [OSQ] Only a little [facility] (I/We) worried wheth er (my/our) food would run out before (I/we) got money to buy more. Never true [facility] In the past 12 month s, was there a time when you were not able to pay the mortgage or rent on time? No [facility] Start: 07-20-2018 Gender identity Identifies as female gender (finding) [facility] Start: 07-20-2018 Sexual orientation Heterosexual (fin ding) [facility] Clinical Notes 09-27-2009 to 11-27-2023 Renetta Bowden MD - 09/30/2023 8:40 AM ESTTelephone Encounter - Yvette Miguel Ma - 08/28/2023 11:51 AM EDTTelephone Encounter - Renetta Bowden MD - 08/28/2023 11:35 AM EDT Note Date & Type Note Facility 11-27-2023 Note HNO ID: [id number] Author: PIERO FLEMING MD Service: ? Author Type: Physician Type: Progress Notes Filed: 11/27/2023 16:13 Note Text: Syeda Lemos is a 43 year old who presents for an annual gynecologic exam with complaints, irreg bleeding w/ tampon . Low sex drive and able to enjoy it but just no desire. Trouble sleeping as well Menses: irreg spotting . Contraception: none HPV vaccine: No Last Pap: 10/08/2022 normal HPV: 10/07/2022 negative History of abnormal pap: No Last mammogram: 2021normal Sexually active: Yes OB History T2 L2 SAB0 IAB0 Ectopic0 Multiple0 Live Births2 Saw Setter History LMP: 04/24/2017, IUD Age at Menarche: Age at First : Age at Menopause: Saw Setter History Comments: Sexual Activity: Yes; Male; Contraception: I.U.D. PAST MEDICAL HISTORY Diagnosis Date Abnormal glandular Papanicolaou smear of cervix Abn. Pap smear (cervix) Generalized anxiety disorder Hydradenitis Irritable bowel syndrome Lumbosacral neuritis PMH - PAST MEDICAL HISTORY OF DEGENERATIVE DISC DISEASE Psoriasis 07/21/2020 PAST SURGICAL HISTORY Procedure Laterality Date CHOLECYSTECTOMY 04/2005 COLPOSCOPY CERVIX UPPER/ADJACENT VAGINA Colposcopy INSERT INTRAUTERINE DEVICE 12/2017 Mirena PAST SURGICAL HISTORY OF 2002 WISDOM TEETH X 4 REMOVED PAST SURGICAL HISTORY OF Left 10/09/2018 Left foot bunionectomy, with correction of hammer toes and midfoot fusion - Dr. Carrasquillo TYMPANOSTOMY LOCAL/TOPICAL ANESTHESIA FAMILY HISTORY Problem Relation Age of Onset Diabetes Mother Heart Mother DBL BYPASS SURG Psychiatry Mother sever depression other (vascular dementia) Mother Heart Father DBL BYPASS Diabetes Brother Diabetes Maternal Grandmother Cancer Paternal Grandmother SKIN CA, COLON CANCER Diabetes Paternal Grandfather Diabetes Maternal Aunt SOCIAL HISTORY Social History Tobacco Use Smoking status: Former Years: 5 Types: Cigarettes Quit date: 08/23/2006 Years since quittin.2 Smokeless tobacco: Never Tobacco comments: Not smoking the last 2 years after restarting Vaping Use Vaping Use: Never used Substance Use Topics Alcohol use: Yes Comment: Occasionally Drug use: No REVIEW OF SYSTEMS Abdomen: No abdominal pain, nausea, vomiting, diarrhea, or constipation. No bloating, early satiety, indigestion, or increased flatulence. Bladder: No dysuria, gross hematuria, urinary frequency, urinary urgency, or incontinence. Breast: No breast lumps, nipple d/c, overlying skin changes, redness or skin retraction. Allergies and current medication updated:Yes EXAM: BP 112/68 Ht 6' 0 (1.83m) Wt 191 lb (86.6kg) LMP 04/24/2017 BMI 25.90 kg/(m2). GENERAL: pleasant, female in no apparent distress HEENT: Normocephalic, atraumatic, mucus membranes moist, and no lesions NECK: Supple, full range of motion, no adenopathy, and thyroid normal DERMATOLOGY: Normal, without lesions, non-icteric, and non-hirsute BREAST: soft, non-tender, symmetric, no dominant mass, normal nipple-areolar complex, no lymphadenopathy, and no nipple discharge CHEST: Normal inspiratory effort ABDOMEN: soft, non-tender, and no masses PELVIC: external genitalia normal, normal Bartholin's glands, urethra, [place]'s glands, no vulvar lesions, no cervical lesions, good vaginal support, physiologic discharge present, normal appearing perineal body and perianal region BIMANUAL: uterus normal size, shape and consistency, no adnexal masses, and non-tender RECTOVAGINAL: deferred. NEURO: alert and oriented x3,exam grossly non-focal EXTREMITIES: normal ASSESSMENT/PLAN: 1) Health maintenance: Pap done with HPV. Mammogram ordered. 2) Contraception: IUD. Contraceptive options reviewed and information provided. 3) STD screening: Declined STD check. 4) Follow up one year or sooner as needed d/w her low libido Piero Fleming MD [facility] 11-26-2023 Note Patient Outreach (IN [facility]) SYEDA HERNANDEZ ([id number]) 1980 F Date Time Provider Department 11/26/23 RENETTA BOWDEN During your visit today, we recorded the following information about you: Allergies As of Date: 11/26/2023 (No Known Allergies) Date Reviewed: 09/30/2023 Reviewed by: Vandana Juan Ma - Fully Assessed Visit Diagnosis:Encounter for screening mammogram for breast cancer [Z12.31] Order(s):[facility] SCREENING [[id number]] Order #: [id number] FUTURE Prescriptions as of 12/01/2023 - HUMIRA,CF, PEN 80 mg/0.8 mL pen kit - doxycycline hyclate (VIBRAMYCIN) 100 mg capsule Take 1 capsule by mouth two times a day for 10 days. - clobetasol (TEMOVATE) 0.05 % ointment Apply 1-2 times day to areas of psoriasis as needed - upadacitinib ER 15 mg tablet,extended release 24 hr (RINVOQ) Take 1 tablet (15 mg) by mouth once daily. Swallow whole; DO NOT crush, chew, or open. - tirzepatide (MOUNJARO) 12.5 mg/0.5 mL pen injector Inject 12.5 mg subcutaneously one time a week. - levonorgestrel (MIRENA) 21 mcg/24 hours (8 yrs) 52 mg IUD 1 Each by INTRAUTERINE route as directed. - LINZESS 290 mcg capsule 1 capsule once daily. For IBS. Prescribed by Dr. Zuñiga - albuterol HFA (PROAIR HFA) 90 mcg/actuation inhaler Inhale 2 Puffs as instructed every 6 hours as needed. Meds Comments as of 09/30/2023: OTC daily Ilya's Multivitamin, Vitamin C and Fairlife Shakes. 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 Problem List As Of Date 11/26/2023 Noted Resolved Panic disorder without agoraphobia [F41.0] 07/05/2005 12/07/2012 Family history of ischemic heart disease [Z82.4*07/05/2005 12/07/2012 Displacement of cervical intervertebral disc wi*11/26/2005 12/07/2012 Displacement of lumbar intervertebral disc with*12/04/2005 12/07/2012 Temporomandibular joint disorders, unspecified *2006 12/07/2012 Supervision of other normal [Z34.80] 09/05/2006 12/07/2012 Other psoriasis [L40.8] 11/19/2007 12/07/2012 Unspecified pruritic disorder [L29.9] 11/19/2007 12/07/2012 XEROSIS////SEBACEOUS GLAND DIS NEC [L73.8] 11/19/2007 12/07/2012 Thoracic or lumbosacral neuritis or radiculitis*03/22/2009 12/07/2012 Tibialis tendinitis [M76.829] 09/27/2009 12/07/2012 Panic attacks [F41.0] 10/13/2014 Psoriasis [L40.9] 07/21/2020 Generalized anxiety disorder [F41.1] Irritable bowel syndrome [K58.9] Well adult exam [Z00.00] 07/21/2020 Encounter Status:Closed by EPIC, PRODUSER on 12/01/23 [facility] 09-30-2023 Note HNO ID: [id number] Author: Renetta Bowden MD Service: ? Author Type: Physician Type: Progress Notes Filed: 09/30/2023 8:59 AM Note Text: Chief Complaint Patient presents with: F/U 3 Month HPI Syeda Hernandez is a 43 year old female who presents here today for 3 month follow up. Pt here today for a 3 month follow up. Obesity: Taking Mounjaro 12.5 mg weekly. Weight last visit 206 lbs, down 10 lbs. Is exercising 6-7 days a week, walking 5 miles a day and running. Tries to watch diet, appetite suppressed. Will try to extend the medication, but by day 10 she gets the food noise and doesn't care what she eats. Wants to talk about the Zepbound as this has been recently covered for weight loss by FDA and there a coupon cards available for this, so would be more affordable for her. Wants to know if anything has been heard about this. States this is the generic form of Mounjaro. Unsure if Pharmacies have this as of yet, since it just happened in the past month. Goal is to lose 100 lbs, to be around 180 lbs. Feels like she will be on this medication forever. Has a lot of skin from losing weight, trying to do exercises to tone this. Had a consult to Plastic Surgery, but it was $30,000 and it's not in the budget at this time. Dizziness - Feels like she has orthostatic HTN, has dizziness. Feels this is related to losing a lot of weight and working out regularly. Denies any syncopal episodes but sees stars . Is drinking a lot of water and gatorade zero for electrolytes. Notes she's running a lot. States this has been going on for a while, but getting worse. Denies any other symptoms. Pt follows with Dr. Zuñiga, Gastro for her IBS. Taking Linzess 290 mcg daily. Psoriasis: Follows with [facility]. Recently started on Rinvoq 15 mg. Was d/c off Humira. HM - Declines Covid at this time. Past medical history, appointments, medications, allergies reviewed. Previous Medical History PAST MEDICAL HISTORY Diagnosis Date Abnormal glandular Papanicolaou smear of cervix Abn. Pap smear (cervix) Generalized anxiety disorder Irritable bowel syndrome Lumbosacral neuritis PMH - PAST MEDICAL HISTORY OF DEGENERATIVE DISC DISEASE Psoriasis 07/21/2020 Previous Surgical History PAST SURGICAL HISTORY Procedure Laterality Date CHOLECYSTECTOMY 04/2005 COLPOSCOPY CERVIX UPPER/ADJACENT VAGINA Colposcopy INSERT INTRAUTERINE DEVICE 12/2017 Mirena PAST SURGICAL HISTORY OF 2002 WISDOM TEETH X 4 REMOVED PAST SURGICAL HISTORY OF Left 10/09/2018 Left foot bunionectomy, with correction of hammer toes and midfoot fusion - Dr. Carrasquillo TYMPANOSTOMY LOCAL/TOPICAL ANESTHESIA Family History FAMILY HISTORY Problem Relation Age of Onset Diabetes Mother Heart Mother DBL BYPASS SURG Psychiatry Mother sever depression other (vascular dementia) Mother Heart Father DBL BYPASS Diabetes Brother Diabetes Maternal Grandmother Cancer Paternal Grandmother SKIN CA, COLON CANCER Diabetes Paternal Grandfather Diabetes Maternal Aunt Patient Allergies ALLERGIES No Known Allergies Current Medications Current Outpatient Medications on File Prior to Visit Medication Sig tirzepatide (MOUNJARO) 12.5 mg/0.5 mL pen injector Inject 12.5 mg subcutaneously one time a week. levonorgestrel (MIRENA) 21 mcg/24 hours (8 yrs) 52 mg IUD 1 Each by INTRAUTERINE route as directed. TANIA HARDY, ELIDIA [id number] 80 mg/0.8 mL pen kit LINZESS 290 mcg capsule 1 capsule once daily. For IBS. Prescribed by Dr. Zuñiga albuterol HFA (PROAIR HFA) 90 mcg/actuation inhaler Inhale 2 Puffs as instructed every 6 hours as needed. No current facility-administered medications on file prior to visit. Social History Social History Tobacco Use Smoking status: Former Years: 5 Types: Cigarettes Quit date: 08/23/2006 Years since quittin.1 Smokeless tobacco: Never Tobacco comments: Not smoking the last 2 years after restarting Vaping Use Vaping Use: Never used Substance Use Topics Alcohol use: Yes Comment: Occasionally Drug use: No EXAM: BP 112/78 (BP Site: Left Arm, BP Position: Standing, BP Cuff Size: Regular Adult) Pulse 76 Resp 16 Wt 88.7 kg (195 lb 9.6 oz) LMP 04/24/2017 BMI 26.53 kg/m? General Appearance: Well appearing, alert, in no acute distress, well-hydrated, well nourished.. Lungs: Lungs clear to auscultation. No wheezing, rhonchi, rales.. Heart: RRR without murmur, gallop, or rubs. No ectopy. Health Maintenance List Hepatitis B Vaccine(1 of 3 - 3-dose series) Never done Shingrix Vaccine(1 of 2) Never done HPV Vaccine(2 - 3-dose series) due on 06/29/2007 DTaP,Tdap,Td Vaccine(3 - Td or Tdap) due on 07/14/2019 Influenza Vaccine(1) due on 07/04/2023 Covid-19 Vaccine( - 2022- season) due on 07/04/2023 Mammogram Screening due on 10/21/2023 Pneumococcal Vaccine(1 - PCV) due on 06/24/2024 Pap Testing due on 10/03/2027 HPV Testing du (more content not included)... [facility] 09-30-2023 History of Presen t illness Narrative Chief Complaint Patient presents with: F/U 3 Month HPI Syeda Hernandez is a 43 year old female who presents here today for 3 month follow up. Pt here today for a 3 month follow up. Obesity: Taking Mounjaro 12.5 mg weekly. Weight last visit 206 lbs, down 10 lbs. Is exercising 6-7 days a week, walking 5 miles a day and running. Tries to watch diet, appetite suppressed. Will try to extend the medication, but by day 10 she gets the food noise and doesn't care what she eats. Wants to talk about the Zepbound as this has been recently covered for weight loss by FDA and there a coupon cards available for this, so would be more affordable for her. Wants to know if anything has been heard about this. States this is the generic form of Mounjaro. Unsure if Pharmacies have this as of yet, since it just happened in the past month. Goal is to lose 100 lbs, to be around 180 lbs. Feels like she will be on this medication forever. Has a lot of skin from losing weight, trying to do exercises to tone this. Had a consult to Plastic Surgery, but it was $30,000 and it's not in the budget at this time. Dizziness - Feels like she has orthostatic HTN, has dizziness. Feels this is related to losing a lot of weight and working out regularly. Denies any syncopal episodes but sees stars . Is drinking a lot of water and gatorade zero for electrolytes. Notes she's running a lot. States this has been going on for a while, but getting worse. Denies any other symptoms. Pt follows with Dr. Zuñiga [facility]astro for her IBS. Taking Linzess 290 mcg daily. Psoriasis: Follows with [facility]. Recently started on Rinvoq 15 mg. Was d/c off Humira. HM - Declines Covid at this time. Past medical history, appointments, medications, allergies reviewed. Previous Medical History PAST MEDICAL HISTORY Diagnosis Date Abnormal glandular Papanicolaou smear of cervix Abn. Pap smear (cervix) Generalized anxiety disorder Irritable bowel syndrome Lumbosacral neuritis PMH - PAST MEDICAL HISTORY OF DEGENERATIVE DISC DISEASE Psoriasis 07/21/2020 Previous Surgical History PAST SURGICAL HISTORY Procedure Laterality Date CHOLECYSTECTOMY 04/2005 COLPOSCOPY CERVIX UPPER/ADJACENT VAGINA Colposcopy INSERT INTRAUTERINE DEVICE 12/2017 Mirena PAST SURGICAL HISTORY OF 2002 WISDOM TEETH X 4 REMOVED PAST SURGICAL HISTORY OF Left 10/09/2018 Left foot bunionectomy, with correction of hammer toes and midfoot fusion - Dr. Carrasquillo TYMPANOSTOMY LOCAL/TOPICAL ANESTHESIA Family History FAMILY HISTORY Problem Relation Age of Onset Diabetes Mother Heart Mother DBL BYPASS SURG Psychiatry Mother sever depression other (vascular dementia) Mother Heart Father DBL BYPASS Diabetes Brother Diabetes Maternal Grandmother Cancer Paternal Grandmother SKIN CA, COLON CANCER Diabetes Paternal Grandfather Diabetes Maternal Aunt Patient Allergies ALLERGIES No Known Allergies Current Medications Current Outpatient Medications on File Prior to Visit Medication Sig tirzepatide (MOUNJARO) 12.5 mg/0.5 mL pen injector Inject 12.5 mg subcutaneously one time a week. levonorgestrel (MIRENA) 21 mcg/24 hours (8 yrs) 52 mg IUD 1 Each by INTRAUTERINE route as directed. ANTONYCF, PEN [id number] 80 mg/0.8 mL pen kit LINZESS 290 mcg capsule 1 capsule once daily. For IBS. Prescribed by Dr. Zuñiga albuterol HFA (PROAIR HFA) 90 mcg/actuation inhaler Inhale 2 Puffs as instructed every 6 hours as needed. No current facility-administered medications on file prior to visit. Social History Social History Tobacco Use Smoking status: Former Years: 5 Types: Cigarettes Quit date: 08/23/2006 Years since quittin.1 Smokeless tobacco: Never Tobacco comments: Not smoking the last 2 years after restarting Vaping Use Vaping Use: Never used Substance Use Topics Alcohol use: Yes Comment: Occasionally Drug use: No EXAM: BP 112/78 (BP Site: Left Arm, BP Position: Standing, BP Cuff Size: Regular Adult) Pulse 76 Resp 16 Wt 88.7 kg (195 lb 9.6 oz) LMP 04/24/2017 BMI 26.53 kg/m General Appearance: Well appearing, alert, in no acute distress, well-hydrated, well nourished.. Lungs: Lungs clear to auscultation. No wheezing, rhonchi, rales.. Heart: RRR without murmur, gallop, or rubs. No ectopy. Health Maintenance List Hepatitis B Vaccine(1 of 3 - 3-dose series) Never done Shingrix Vaccine(1 of 2) Never done HPV Vaccine(2 - 3-dose series) due on 06/29/2007 DTaP,Tdap,Td Vaccine(3 - Td or Tdap) due on 07/14/2019 Influenza Vaccine(1) due on 07/04/2023 Covid-19 Vaccine(4 - 2022-24 season) due on 07/04/2023 Mammogram Screening due on 10/21/2023 Pneumococcal Vaccine(1 - PCV) due on 06/24/2024 Pap Testing due on 10/03/2027 HPV Testing due on 10/03/2027 Depression Assessment Completed Hepatitis C Screening Completed HIV Screening Completed Data reviewed Weight graph ASSESSMENT/PLAN: 1. Obesity, Class I, BMI 30-34.9 - ICD9: 278.00, ICD10: E66.9 (primary diagnosis) - Stable - Continue current medication regimen. - check labs 2. Dizziness - ICD9: 780.4, ICD10: R42 - Stable today - check labs 3 mo f/u. Will give orders for pt to take with her today to complete at [facility]. I agree with the Chief Complaint, ROS, and Past Histories independently gathered by the clinical family readiness support assistant and the remaining scribed note accurately describes my personal service to the patient. Medical Decision Making: Problems: Low: Stable chronic illness Data: Unique test(s) ordered: 2 Risk: Moderate: Drug management Medical Decision Making Level: 3 - Low Renetta Bowden MD The documentation for this note was completed by Vandana Juan Ma acting as scribe for Renetta Bowden MD. September 30, 2023 8:43 AM. Vandana Juan Ma documented in this encounter [facility] 08-28-2023 Miscellaneous Notes The following approved medication requests have been transmitted electronically. Requested Prescriptions Signed Prescriptions Disp Refills LORazepam (ATIVAN) 0.5 mg 20 tablet 0 Sig: Take 1 tablet by mouth two times a day as needed for up to 10 days. Authorizing Provider: RENETTA BOWDEN Ma OK to refill as ordered Renetta Bowden MD Patient calling to request the following medication that has on list LORAZEPAM 0.5 MG TAB. Please send medication to [facility]. documented in this encounter [facility] 07-01-2023 Miscellaneous Notes faxed Form done Renetta Bowden MD Type of form: 2022 [facility] Form received via fax When form is completed, Fax form to [facility] HR Form has been forwarded to Physician Desk: Dr. Bowden. Pt has attached her most recent lab results. Labs updated in pt chart. Sent pt [employer] message once forms are sent as an update. Vandana Juan Ma documented in this encounter [facility] 06-24-2023 Note HNO ID: [id number] Author: Renetta Bowden MD Service: ? Author Type: Physician Type: Progress Notes Filed: 06/24/2023 9:10 AM Note Text: Chief Complaint Patient presents with: F/U 3 Month HPI Syeda Hernandez is a 43 year old female who presents here today for 3 month follow up. Has been busy with a lot of of travel baseball. Also camping on a [place] they have here outside of [place]. Obesity: Weight last visit in March was 217 lbs. She tries to watch diet, appetite suppressed some feels she gets full quicker. Is exercising 6-7 days a week, walking 5 miles a day. Previously was running. Tolerating medication well. She is taking Mounjaro 10 mg once weekly. Has Rx's for 7.5 mg as well due to difficulty getting the Rx. This has been working well for her. Overall down 80+ pounds. Her goal is to lose 100 lbs but slowly. Has a lot of excess skin due to weight loss. States she may get a consult in the future due to being self conscious. Did get a consult for Plastic Surgery, which she's a candidate but it's very expensive. Once she hits 100 lbs may transition into Crossfit to help with some of the skin. Reports at times getting dizzy especially when out in the heat with losing weight. Incorporating gatorade and electrolytes as well as salt into her diet to help this. Pt follows with Dr. Zuñiga [facility]astro for her IBS. Taking Linzess 290 mcg daily. Psoriasis: Follows with [facility]. HM - Declines any further Covid vaccines. Declines pneumonia at this time. Past medical history, appointments, medications, allergies reviewed. Previous Medical History PAST MEDICAL HISTORY Diagnosis Date Abnormal glandular Papanicolaou smear of cervix Abn. Pap smear (cervix) Generalized anxiety disorder Irritable bowel syndrome Lumbosacral neuritis PMH - PAST MEDICAL HISTORY OF DEGENERATIVE DISC DISEASE Psoriasis 07/21/2020 Previous Surgical History PAST SURGICAL HISTORY Procedure Laterality Date CHOLECYSTECTOMY 04/2005 COLPOSCOPY CERVIX UPPER/ADJACENT VAGINA Colposcopy INSERT INTRAUTERINE DEVICE 12/2017 Mirena PAST SURGICAL HISTORY OF 2002 WISDOM TEETH X 4 REMOVED PAST SURGICAL HISTORY OF Left 10/09/2018 Left foot bunionectomy, with correction of hammer toes and midfoot fusion - Dr. Carrasquillo TYMPANOSTOMY LOCAL/TOPICAL ANESTHESIA Family History FAMILY HISTORY Problem Relation Age of Onset Diabetes Mother Heart Mother DBL BYPASS SURG Psychiatry Mother sever depression other (vascular dementia) Mother Heart Father DBL BYPASS Diabetes Brother Diabetes Maternal Grandmother Cancer Paternal Grandmother SKIN CA, COLON CANCER Diabetes Paternal Grandfather Diabetes Maternal Aunt Patient Allergies ALLERGIES No Known Allergies Current Medications Current Outpatient Medications on File Prior to Visit Medication Sig mupirocin (BACTROBAN) 2 % cream Apply 1 application to affected area three times daily for 10 days. Location: Face tirzepatide (MOUNJARO) 10 mg/0.5 mL pen injector Inject 10 mg subcutaneously one time a week. tirzepatide (MOUNJARO) 7.5 mg/0.5 mL pen injector Inject 7.5 mg subcutaneously one time a week. levonorgestrel (MIRENA) 21 mcg/24 hours (8 yrs) 52 mg IUD 1 Each by INTRAUTERINE route as directed. HUMIRA,CF, PEN [id number] 80 mg/0.8 mL pen kit valACYclovir (VALTREX) 1 gram LINZESS 290 mcg capsule 1 capsule once daily. For IBS. Prescribed by Dr. Zuñiga albuterol HFA (PROAIR HFA) 90 mcg/actuation inhaler Inhale 2 Puffs as instructed every 6 hours as needed. No current facility-administered medications on file prior to visit. Social History Social History Tobacco Use Smoking status: Former Years: 5 Types: Cigarettes Quit date: 08/23/2006 Years since quittin.8 Smokeless tobacco: Never Tobacco comments: Not smoking the last 2 years after restarting Vaping Use Vaping Use: Never used Substance Use Topics Alcohol use: Yes Comment: Occasionally Drug use: No EXAM: BP 110/74 (BP Site: Left Arm, BP Position: Sitting, BP Cuff Size: Regular Adult) Pulse 78 Resp 16 Wt 93.4 kg (206 lb) LMP 04/24/2017 BMI 27.94 kg/m? General Appearance: Well appearing, alert, in no acute distress, well-hydrated, well nourished. and Overweight. Lungs: Lungs clear to auscultation. No wheezing, rhonchi, rales.. Heart: RRR without murmur, gallop, or rubs. No ectopy. Health Maintenance List HEPATITIS B(1 of 3 - 3-dose series) Never done PNEUMOCOCCAL(1 - PCV) Never done SHINGRIX VACCINE(1 of 2) Never done HPV VACCINE(2 - 3-dose series) due on 06/29/2007 DTAP,TDAP,TD(3 - Td or Tdap) due on 07/14/2019 COVID-19 VACCINE(4 - Booster for Moderna series) due on 10/31/2021 INFLUENZA(1) due on 07/04/2023 MAMMOGRAM due on 10/21/2023 PAP TESTING due on 10/03/2027 HPV TESTING due on 10/03/2027 DEPRESSION ASSESSMENT Completed HEPATITIS C SCREENING Completed HIV SCREENING Completed Data reviewed (more content not included)... [facility] 06-24-2023 History of Presen t illness Narrative Chief Complaint Patient presents with: F/U 3 Month HPI Syeda Hernandez is a 43 year old female who presents here today for 3 month follow up. Has been busy with a lot of of travel baseball. Also camping on a [place] they have here outside of [place]. Obesity: Weight last visit in March was 217 lbs. She tries to watch diet, appetite suppressed some feels she gets full quicker. Is exercising 6-7 days a week, walking 5 miles a day. Previously was running. Tolerating medication well. She is taking Mounjaro 10 mg once weekly. Has Rx's for 7.5 mg as well due to difficulty getting the Rx. This has been working well for her. Overall down 80+ pounds. Her goal is to lose 100 lbs but slowly. Has a lot of excess skin due to weight loss. States she may get a consult in the future due to being self conscious. Did get a consult for Plastic Surgery, which she's a candidate but it's very expensive. Once she hits 100 lbs may transition into Crossfit to help with some of the skin. Reports at times getting dizzy especially when out in the heat with losing weight. Incorporating gatorade and electrolytes as well as salt into her diet to help this. Pt follows with Igor Martins for her IBS. Taking Linzess 290 mcg daily. Psoriasis: Follows with [facility]. HM - Declines any further Covid vaccines. Declines pneumonia at this time. Past medical history, appointments, medications, allergies reviewed. Previous Medical History PAST MEDICAL HISTORY Diagnosis Date Abnormal glandular Papanicolaou smear of cervix Abn. Pap smear (cervix) Generalized anxiety disorder Irritable bowel syndrome Lumbosacral neuritis PMH - PAST MEDICAL HISTORY OF DEGENERATIVE DISC DISEASE Psoriasis 07/21/2020 Previous Surgical History PAST SURGICAL HISTORY Procedure Laterality Date CHOLECYSTECTOMY 04/2005 COLPOSCOPY CERVIX UPPER/ADJACENT VAGINA Colposcopy INSERT INTRAUTERINE DEVICE 12/2017 Mirena PAST SURGICAL HISTORY OF 2002 WISDOM TEETH X 4 REMOVED PAST SURGICAL HISTORY OF Left 10/09/2018 Left foot bunionectomy, with correction of hammer toes and midfoot fusion - Dr. Carrasquillo TYMPANOSTOMY LOCAL/TOPICAL ANESTHESIA Family History FAMILY HISTORY Problem Relation Age of Onset Diabetes Mother Heart Mother DBL BYPASS SURG Psychiatry Mother sever depression other (vascular dementia) Mother Heart Father DBL BYPASS Diabetes Brother Diabetes Maternal Grandmother Cancer Paternal Grandmother SKIN CA, COLON CANCER Diabetes Paternal Grandfather Diabetes Maternal Aunt Patient Allergies ALLERGIES No Known Allergies Current Medications Current Outpatient Medications on File Prior to Visit Medication Sig mupirocin (BACTROBAN) 2 % cream Apply 1 application to affected area three times daily for 10 days. Location: Face tirzepatide (MOUNJARO) 10 mg/0.5 mL pen injector Inject 10 mg subcutaneously one time a week. tirzepatide (MOUNJARO) 7.5 mg/0.5 mL pen injector Inject 7.5 mg subcutaneously one time a week. levonorgestrel (MIRENA) 21 mcg/24 hours (8 yrs) 52 mg IUD 1 Each by INTRAUTERINE route as directed. TANIA HARDY, PEN [id number] 80 mg/0.8 mL pen kit valACYclovir (VALTREX) 1 gram LINZESS 290 mcg capsule 1 capsule once daily. For IBS. Prescribed by Dr. Zuñiga albuterol HFA (PROAIR HFA) 90 mcg/actuation inhaler Inhale 2 Puffs as instructed every 6 hours as needed. No current facility-administered medications on file prior to visit. Social History Social History Tobacco Use Smoking status: Former Years: 5 Types: Cigarettes Quit date: 08/23/2006 Years since quittin.8 Smokeless tobacco: Never Tobacco comments: Not smoking the last 2 years after restarting Vaping Use Vaping Use: Never used Substance Use Topics Alcohol use: Yes Comment: Occasionally Drug use: No EXAM: BP 110/74 (BP Site: Left Arm, BP Position: Sitting, BP Cuff Size: Regular Adult) Pulse 78 Resp 16 Wt 93.4 kg (206 lb) LMP 04/24/2017 BMI 27.94 kg/m General Appearance: Well appearing, alert, in no acute distress, well-hydrated, well nourished. and Overweight. Lungs: Lungs clear to auscultation. No wheezing, rhonchi, rales.. Heart: RRR without murmur, gallop, or rubs. No ectopy. Health Maintenance List HEPATITIS B(1 of 3 - 3-dose series) Never done PNEUMOCOCCAL(1 - PCV) Never done SHINGRIX VACCINE(1 of 2) Never done HPV VACCINE(2 - 3-dose series) due on 06/29/2007 DTAP,TDAP,TD(3 - Td or Tdap) due on 07/14/2019 COVID-19 VACCINE(4 - Booster for Moderna series) due on 10/31/2021 INFLUENZA(1) due on 07/04/2023 MAMMOGRAM due on 10/21/2023 PAP TESTING due on 10/03/2027 HPV TESTING due on 10/03/2027 DEPRESSION ASSESSMENT Completed HEPATITIS C SCREENING Completed HIV SCREENING Completed Data reviewed Weight graph ASSESSMENT/PLAN: 1. Obesity, Class I, BMI 30-34.9 - ICD9: 278.00, ICD10: E66.9 Weight decreasing - Pharmacological intervention - Continue current medications - Pays for this, cost $500 3 mo f/u I agree with the Chief Complaint, ROS, and Past Histories independently gathered by the clinical family readiness support assistant and the remaining scribed note accurately describes my personal service to the patient. Medical Decision Making: Problems: Low: Stable chronic illness Risk: Moderate: Drug management Medical Decision Making Level: 3 - Prince Bowden MD The documentation for this note was completed by Vandana Juan Ma acting as scribe for Renetta Bowden MD. June 24, 2023 8:21 AM. Vandana Juan Ma documented in this encounter [facility] 03-25-2023 Note HNO ID: [id number] Author: Renetta Bowden MD Service: ? Author Type: Physician Type: Progress Notes Filed: 03/25/2023 8:35 AM Note Text: Chief Complaint Patient presents with: F/U 3 Month HPI Syeda Hernandez is a 42 year old female who presents here today for a 3 month follow up. Pt here today for a 3 month follow up. Weight - Currently on Mounjaro 10 mg or 7.5 mg depending on what the pharmacy has available, she is requesting both Rx's to be sent into the pharmacy. Pt wrote into the office between visits asking for an increase due to the 7.5 mg being difficult to get. Last weight on file was 239 lbs. BMI 32.43. Medication is not covered by insurance, costs her out of pocket about $475/month, still using a coupon card. Without the coupon card she will have to pay $1,000.00. Her coupon card expires in April. She went without the medication for a short period and her hunger and appetite increased. Goal weight is to be 199 lbs. Pt overall feels that medication has worked well for her. Is able to eat whatever she wants and gets full quicker. Exercises 5 days a weeks. Able to run 5Ks. GI - Follows with Dr. Zuñiga for IBS. Currently taking Linzess 290 mg daily. Derm - Follows with Dr. Wright for Psoriasis uses a compound cream. Past medical history, appointments, medications, allergies reviewed. Previous Medical History PAST MEDICAL HISTORY Diagnosis Date Abnormal glandular Papanicolaou smear of cervix Abn. Pap smear (cervix) Generalized anxiety disorder Irritable bowel syndrome Lumbosacral neuritis PMH - PAST MEDICAL HISTORY OF DEGENERATIVE DISC DISEASE Psoriasis 07/21/2020 Previous Surgical History PAST SURGICAL HISTORY Procedure Laterality Date CHOLECYSTECTOMY 04/2005 COLPOSCOPY CERVIX UPPER/ADJACENT VAGINA Colposcopy INSERT INTRAUTERINE DEVICE 12/2017 Mirena PAST SURGICAL HISTORY OF 2002 WISDOM TEETH X 4 REMOVED PAST SURGICAL HISTORY OF Left 10/09/2018 Left foot bunionectomy, with correction of hammer toes and midfoot fusion - Dr. Carrasquillo TYMPANOSTOMY LOCAL/TOPICAL ANESTHESIA Family History FAMILY HISTORY Problem Relation Age of Onset Diabetes Mother Heart Mother DBL BYPASS SURG Psychiatry Mother sever depression other (vascular dementia) Mother Heart Father DBL BYPASS Diabetes Brother Diabetes Maternal Grandmother Cancer Paternal Grandmother SKIN CA, COLON CANCER Diabetes Paternal Grandfather Diabetes Maternal Aunt Patient Allergies ALLERGIES No Known Allergies Current Medications Current Outpatient Medications on File Prior to Visit Medication Sig levonorgestrel (MIRENA) 21 mcg/24 hours (8 yrs) 52 mg IUD 1 Each by INTRAUTERINE route as directed. HUMIRA,CF, PEN EDQZKF-MS-NS 80 mg/0.8 mL pen kit valACYclovir (VALTREX) 1 gram tirzepatide (MOUNJARO) 10 mg/0.5 mL pen injector Inject 10 mg subcutaneously one time a week. LINZESS 290 mcg capsule 1 capsule once daily. For IBS. Prescribed by Dr. Zuñiga albuterol HFA (PROAIR HFA) 90 mcg/actuation inhaler Inhale 2 Puffs as instructed every 6 hours as needed. No current facility-administered medications on file prior to visit. Social History Social History Tobacco Use Smoking status: Former Years: 5.00 Types: Cigarettes Quit date: 08/23/2006 Years since quittin.5 Smokeless tobacco: Never Tobacco comments: Not smoking the last 2 years after restarting Vaping Use Vaping Use: Never used Substance Use Topics Alcohol use: Yes Comment: Occasionally Drug use: No EXAM: BP 106/72 (BP Site: Right Arm, BP Position: Sitting, BP Cuff Size: Regular Adult) Pulse 80 Resp 16 Wt 98.4 kg (217 lb) LMP 04/24/2017 BMI 29.43 kg/m? General Appearance: Well appearing, alert, in no acute distress, well-hydrated, well nourished. and Overweight. Lungs: Lungs clear to auscultation. No wheezing, rhonchi, rales.. Heart: RRR without murmur, gallop, or rubs. No ectopy. Health Maintenance List HEPATITIS B(1 of 3 - 3-dose series) Never done PNEUMOCOCCAL(1 - PCV) Never done SHINGRIX VACCINE(1 of 2) Never done DTAP,TDAP,TD(3 - Td or Tdap) due on 07/14/2019 COVID-19 VACCINE(4 - Booster for Moderna series) due on 10/31/2021 MAMMOGRAM due on 10/21/2023 PAP TESTING due on 10/03/2027 HPV TESTING due on 10/03/2027 INFLUENZA Completed DEPRESSION ASSESSMENT Completed HEPATITIS C SCREENING Completed HIV SCREENING Completed Data reviewed Weight graph ASSESSMENT/PLAN: 1. Obesity, Class I, BMI 30-34.9 - ICD9: 278.00, ICD10: E66.9 Weight decreasing - Continue current medication regimen. - TIRZEPATIDE 10 MG/0.5 ML SUBCUTANEOUS PEN INJECTOR (or 7.5 mg, depending on which is available in the pharmacy) Follow up in 3 months I agree with the Chief Complaint, ROS, and Past Histories independently gathered by the clinical family readiness support assistant and the remaining scribed note accurately describes my personal service to the patient. Medical Decision (more content not included)... [facility] 01-21-2023 Note HNO ID: [id number] Author: Piero Fleming MD Service: ? Author Type: Physician Type: Progress Notes Filed: 01/21/2023 11:21 AM Note Text: Syeda Lemos presents for removal of IUD due to irregular bleeding. UNIVERSAL PROTOCOL / SAFETY CHECKLIST Procedure to be Performed: Mirena IUD removal, Mirena IUD insertion Sign In: A Moment of CARE was completed. Personnel directly involved with the procedure wore the appropriate PPE (Personal Protective Equipment). Patient/Surrogate Stated/Verified: PATIENT VERIFIED(optional for EMERGENT procedures): Patient name, Date of , Relevant allergies, and The intended procedure Time Out Communication: Intended patient and procedure match the source documents. Consent documented and matches the intended procedure. Implant(s) inserted: Correct implant(s) confirmed including size and side. and Expiration date(s) reviewed. Sign Out: SIGN OUT (optional for EMERGENT procedures): No specimen collected. All instruments, equipment, possible retained foreign bodies accounted for. Post-procedure follow-up management communicated and Plan of Care Visit completed when applicable. Piero Fleming M.D. PROCEDURE: Speculum placed in vagina, IUD string visualized and grasped with ring forceps. ASSESSMENT/PLAN: IUD removed without difficulty, intact, and patient tolerated procedure well. Contraception plans: Mirena IUD Piero Fleming MD Syeda Lemos presents today for IUD insertion for contraception. Patient's last menstrual period was 04/24/2017. GC/chlamydia: Not done: no risk factors and/or patient declines screening test: negative Side effects including irregular bleeding were discussed with the patient. The patient understands that it should be removed in 5 years or sooner if the patient desires a . IUD source: office provided IUD lot #: [id number] Exp date: 03/02/2025 The cervix was prepped with betadine. The uterus sounded to 7 cm and the uterus is Retroverted.. Using sterile technique, the Mirena IUD was inserted without difficulty and the string was cut to 2cm from the external os of the cervix. Patient tolerated procedure well. PLAN: Patient was advised to observe for signs and symptoms of infection including but not limited to fever, malodorous vaginal discharge and/or pain. The patient was told to check the string monthly for accurate placement. Bleeding expectations were reviewed. Follow up for next annual exam or sooner as needed. Piero Fleming MD [facility] 01-21-2023 Instructions Aline Montemayor Ma - 01/21/2023 10:54 AM EDT POST IUD INSTRUCTIONS You may have irregular bleeding during the first 3 months of use. You may have mild-severe cramping for the next 48 hours. You may use over the counter medication (Motrin, Tylenol) as needed. Your IUD must be removed or replaced based on the following table: IUD Type Removed or replaced within: Chelsy 3 years Kyleena 5 years Mirena 8 years Paragard 10 years Call my office for signs/symptoms of infection such as severe cramping, fever, or unusual bleeding. Check for string placement as instructed by your doctor. If you have any additional questions, please contact the office. documented in this encounter [facility] 01-21-2023 History of Presen t illness Narrative Syeda Canelo presents for removal of IUD due to irregular bleeding. UNIVERSAL PROTOCOL / SAFETY CHECKLIST Procedure to be Performed: Mirena IUD removal, Mirena IUD insertion Sign In: A Moment of CARE was completed. Personnel directly involved with the procedure wore the appropriate PPE (Personal Protective Equipment). Patient/Surrogate Stated/Verified: PATIENT VERIFIED(optional for EMERGENT procedures): Patient name, Date of , Relevant allergies, and The intended procedure Time Out Communication: Intended patient and procedure match the source documents. Consent documented and matches the intended procedure. Implant(s) inserted: Correct implant(s) confirmed including size and side. and Expiration date(s) reviewed. Sign Out: SIGN OUT (optional for EMERGENT procedures): No specimen collected. All instruments, equipment, possible retained foreign bodies accounted for. Post-procedure follow-up management communicated and Plan of Care Visit completed when applicable. Piero Fleming M.D. PROCEDURE: Speculum placed in vagina, IUD string visualized and grasped with ring forceps. ASSESSMENT/PLAN: IUD removed without difficulty, intact, and patient tolerated procedure well. Contraception plans: Mirena IUD Piero Fleming MD Syeda Lemos presents today for IUD insertion for contraception. Patient's last menstrual period was 04/24/2017. GC/chlamydia: Not done: no risk factors and/or patient declines screening test: negative Side effects including irregular bleeding were discussed with the patient. The patient understands that it should be removed in 5 years or sooner if the patient desires a . IUD source: office provided IUD lot #: [id number] Exp date: 03/02/2025 The cervix was prepped with betadine. The uterus sounded to 7 cm and the uterus is Retroverted.. Using sterile technique, the Mirena IUD was inserted without difficulty and the string was cut to 2cm from the external os of the cervix. Patient tolerated procedure well. PLAN: Patient was advised to observe for signs and symptoms of infection including but not limited to fever, malodorous vaginal discharge and/or pain. The patient was told to check the string monthly for accurate placement. Bleeding expectations were reviewed. Follow up for next annual exam or sooner as needed. Piero Fleming MD documented in this encounter [facility] 12-16-2022 Miscellaneous Notes done. Piero Fleming MD Please see pended order below will then be attached to visit already scheduled. Sheron Price LPN' documented in this encounter [facility] 12-13-2022 Note HNO ID: [id number] Author: Renetta Bowden MD Service: ? Author Type: Physician Type: Progress Notes Filed: 12/13/2022 10:56 AM Note Text: Chief Complaint Patient presents with: F/U 3 Month: Weight loss HPI Syeda Hernandez is a 42 year old female who presents here today for 3 month follow up. Obesity: Here to follow up on her weight. Has been using Mounjaro 7.5 mg weekly for the last 1-2 months. She averages 1-2 lbs a week. This is not covered by her insurance, costing $475 a month. She is hoping to just use it till she gets to her goal weight of 199 lbs, then will start to titrate down to 2.5 mg dosage for maintenance. She was originally started on this medication by an obesity doctor. Has felt it is working well for her to lose weight. She eats whatever she wants and is exercising 5 days a week. Has been following with Gi Dr. Zuñiga at [facility] irritable bowel. Started on Linzess 290 mg once daily for IBS. She had full work up and blood work done. She has been very happy with the results of the medication and with her care from Dr. Zuñiga. Psoriasis: She follows with Dr. Wright with [facility]. She uses a compound ointment. Pt feels that overall the Mounjaro has helped with all her health issues. Her inflammation levels are normal. Past medical history, appointments, medications, allergies reviewed. Previous Medical History PAST MEDICAL HISTORY Diagnosis Date Abnormal glandular Papanicolaou smear of cervix Abn. Pap smear (cervix) Generalized anxiety disorder Irritable bowel syndrome Lumbosacral neuritis PMH - PAST MEDICAL HISTORY OF DEGENERATIVE DISC DISEASE Psoriasis 07/21/2020 Previous Surgical History PAST SURGICAL HISTORY Procedure Laterality Date CHOLECYSTECTOMY 04/2005 COLPOSCOPY CERVIX UPPER/ADJACENT VAGINA Colposcopy INSERT INTRAUTERINE DEVICE 12/2017 Mirena PAST SURGICAL HISTORY OF 2002 WISDOM TEETH X 4 REMOVED PAST SURGICAL HISTORY OF Left 10/09/2018 Left foot bunionectomy, with correction of hammer toes and midfoot fusion - Dr. Carrasquillo TYMPANOSTOMY LOCAL/TOPICAL ANESTHESIA Family History FAMILY HISTORY Problem Relation Age of Onset Diabetes Mother Heart Mother DBL BYPASS SURG Psychiatry Mother sever depression other (vascular dementia) Mother Heart Father DBL BYPASS Diabetes Brother Diabetes Maternal Grandmother Cancer Paternal Grandmother SKIN CA, COLON CANCER Diabetes Paternal Grandfather Diabetes Maternal Aunt Patient Allergies ALLERGIES No Known Allergies Current Medications Current Outpatient Medications on File Prior to Visit Medication Sig tirzepatide (MOUNJARO) 7.5 mg/0.5 mL pen injector Inject 7.5 mg subcutaneously one time a week. albuterol HFA (PROAIR HFA) 90 mcg/actuation inhaler Inhale 2 Puffs as instructed every 6 hours as needed. levonorgestrel (MIRENA) 20 mcg/24 hr (5 years) IUD Inserted in office No current facility-administered medications on file prior to visit. Social History Social History Tobacco Use Smoking status: Former Years: 5.00 Types: Cigarettes Quit date: 08/23/2006 Years since quittin.3 Smokeless tobacco: Never Tobacco comments: Not smoking the last 2 years after restarting Vaping Use Vaping Use: Never used Substance Use Topics Alcohol use: Yes Comment: Occasionally Drug use: No EXAM: BP 120/70 Pulse 74 Resp 16 Wt 108.5 kg (239 lb 1.6 oz) LMP 04/24/2017 BMI 32.43 kg/m? General Appearance: Well appearing, alert, in no acute distress, well-hydrated, well nourished. and Overweight. Lungs: Lungs clear to auscultation. No wheezing, rhonchi, rales.. Heart: RRR without murmur, gallop, or rubs. No ectopy. Health Maintenance List HEPATITIS B(1 of 3 - 3-dose series) Never done DTAP,TDAP,TD(3 - Td or Tdap) due on 07/14/2019 COVID-19 VACCINE(4 - Booster for Moderna series) due on 10/31/2021 DEPRESSION ASSESSMENT due on 11/03/2022 MAMMOGRAM due on 10/21/2023 PAP TESTING due on 10/03/2027 HPV TESTING due on 10/03/2027 INFLUENZA Completed HEPATITIS C SCREENING Completed HIV SCREENING Completed Data reviewed Weight graph ASSESSMENT/PLAN: 1. Irritable bowel syndrome with both constipation and diarrhea - ICD9: 564.1, ICD10: K58.2 (primary diagnosis) Improved with Linzess Continue with Dr. Zuñiga 2. Obesity, Class I, BMI 30-34.9 - ICD9: 278.00, ICD10: E66.9 Weight decreasing Continue current medications; call if she wants to increase dose of Mounjaro. Follow up in 3 months. I agree with the Chief Complaint, ROS, and Past Histories independently gathered by the clinical family readiness support assistant and the remaining scribed note accurately describes my personal service to the patient. Medical Decision Making: Problems: Low: Stable chronic illness Risk: Moderate: Drug management Medical Decision Making Level: 3 - Low Renetta Bowden MD The documentation for this note was completed by Yvette Dobbins (more content not included)... [facility] 12-13-2022 History of Presen t illness Narrative Chief Complaint Patient presents with: F/U 3 Month: Weight loss HPI Syeda Hernandez is a 42 year old female who presents here today for 3 month follow up. Obesity: Here to follow up on her weight. Has been using Mounjaro 7.5 mg weekly for the last 1-2 months. She averages 1-2 lbs a week. This is not covered by her insurance, costing $475 a month. She is hoping to just use it till she gets to her goal weight of 199 lbs, then will start to titrate down to 2.5 mg dosage for maintenance. She was originally started on this medication by an obesity doctor. Has felt it is working well for her to lose weight. She eats whatever she wants and is exercising 5 days a week. Has been following with Gi Dr. Zuñiga at [facility] irritable bowel. Started on Linzess 290 mg once daily for IBS. She had full work up and blood work done. She has been very happy with the results of the medication and with her care from Dr. Zuñiga. Psoriasis: She follows with Dr. Wright with [facility]. She uses a compound ointment. Pt feels that overall the Mounjaro has helped with all her health issues. Her inflammation levels are normal. Past medical history, appointments, medications, allergies reviewed. Previous Medical History PAST MEDICAL HISTORY Diagnosis Date Abnormal glandular Papanicolaou smear of cervix Abn. Pap smear (cervix) Generalized anxiety disorder Irritable bowel syndrome Lumbosacral neuritis PMH - PAST MEDICAL HISTORY OF DEGENERATIVE DISC DISEASE Psoriasis 07/21/2020 Previous Surgical History PAST SURGICAL HISTORY Procedure Laterality Date CHOLECYSTECTOMY 04/2005 COLPOSCOPY CERVIX UPPER/ADJACENT VAGINA Colposcopy INSERT INTRAUTERINE DEVICE 12/2017 Mirena PAST SURGICAL HISTORY OF 2002 WISDOM TEETH X 4 REMOVED PAST SURGICAL HISTORY OF Left 10/09/2018 Left foot bunionectomy, with correction of hammer toes and midfoot fusion - Dr. Carrasquillo TYMPANOSTOMY LOCAL/TOPICAL ANESTHESIA Family History FAMILY HISTORY Problem Relation Age of Onset Diabetes Mother Heart Mother DBL BYPASS SURG Psychiatry Mother sever depression other (vascular dementia) Mother Heart Father DBL BYPASS Diabetes Brother Diabetes Maternal Grandmother Cancer Paternal Grandmother SKIN CA, COLON CANCER Diabetes Paternal Grandfather Diabetes Maternal Aunt Patient Allergies ALLERGIES No Known Allergies Current Medications Current Outpatient Medications on File Prior to Visit Medication Sig tirzepatide (MOUNJARO) 7.5 mg/0.5 mL pen injector Inject 7.5 mg subcutaneously one time a week. albuterol HFA (PROAIR HFA) 90 mcg/actuation inhaler Inhale 2 Puffs as instructed every 6 hours as needed. levonorgestrel (MIRENA) 20 mcg/24 hr (5 years) IUD Inserted in office No current facility-administered medications on file prior to visit. Social History Social History Tobacco Use Smoking status: Former Years: 5.00 Types: Cigarettes Quit date: 08/23/2006 Years since quittin.3 Smokeless tobacco: Never Tobacco comments: Not smoking the last 2 years after restarting Vaping Use Vaping Use: Never used Substance Use Topics Alcohol use: Yes Comment: Occasionally Drug use: No EXAM: BP 120/70 Pulse 74 Resp 16 Wt 108.5 kg (239 lb 1.6 oz) LMP 04/24/2017 BMI 32.43 kg/m General Appearance: Well appearing, alert, in no acute distress, well-hydrated, well nourished. and Overweight. Lungs: Lungs clear to auscultation. No wheezing, rhonchi, rales.. Heart: RRR without murmur, gallop, or rubs. No ectopy. Health Maintenance List HEPATITIS B(1 of 3 - 3-dose series) Never done DTAP,TDAP,TD(3 - Td or Tdap) due on 07/14/2019 COVID-19 VACCINE(4 - Booster for Moderna series) due on 10/31/2021 DEPRESSION ASSESSMENT due on 11/03/2022 MAMMOGRAM due on 10/21/2023 PAP TESTING due on 10/03/2027 HPV TESTING due on 10/03/2027 INFLUENZA Completed HEPATITIS C SCREENING Completed HIV SCREENING Completed Data reviewed Weight graph ASSESSMENT/PLAN: 1. Irritable bowel syndrome with both constipation and diarrhea - ICD9: 564.1, ICD10: K58.2 (primary diagnosis) Improved with Linzess Continue with Dr. Zuñiga 2. Obesity, Class I, BMI 30-34.9 - ICD9: 278.00, ICD10: E66.9 Weight decreasing Continue current medications; call if she wants to increase dose of Mounjaro. Follow up in 3 months. I agree with the Chief Complaint, ROS, and Past Histories independently gathered by the clinical family readiness support assistant and the remaining scribed note accurately describes my personal service to the patient. Medical Decision Making: Problems: Low: Stable chronic illness Risk: Moderate: Drug management Medical Decision Making Level: 3 - Low Renetta Bowden MD The documentation for this note was completed by Yvette Miguel Ma acting as scribe for Renetta Bowden MD. December 13, 2022 10:38 AM. Yvette Miguel Ma documented in this encounter [facility] 11-22-2022 Miscellaneous Notes OK to refill as ordered Renetta Bowden MD Patient last visit with PCP 10/15/22 Follow up appointment scheduled 12/13/22 Gabriela Tamayo Ma Syeda Lemos Davesilvana is calling Renetta Bowden MD today requesting a refill on a medication under her chart. LORazepam (ATIVAN) 0.5 mg Please send to [facility] Bailey documented in this encounter [facility] 11-13-2022 Miscellaneous Notes Patient was notified and aware Gabriela Tamayo Ma PA denied not covered for weight loss Gabriela Tamayo Ma Electronic PA submitted through [facility] Gabriela Tamayo Ma See pt message below, states she needs PA. My Dre is now needing a Prior Auth. I understand that a lot of these are not being covered. I spoke to [employer], and I spoke to my Insurance this afternoon. There is a big chance they will cover it with your PA. I started at 285lbs, and I am down to 245 lbs. My Psortiatic Arthritis is finally controlled without Humira secondary to the weight loss. I am also running and walking 2 miles a day. I know these are a pain, but I would appreciate it if you don't mind trying. They said it is an easy process. You go to [email or web address], and this will guide you to do the PA. It is worth a shot! Otherwise, I pay 550.00 a month. Thank you! Yvette Miguel Ma documented in this encounter [facility] 11-11-2022 Miscellaneous Notes See phone note 11/11/22 re: NO Miguel Ma documented in this encounter [facility] 11-08-2022 Miscellaneous Notes Pt notified via [employer]. OV, demo, insurance card, lab results, referral faxed to Dr. Zuñiga's office. Pt advised via [employer] that she can call to schedule. Yvette Miguel Ma' OK to refer to Dr Zuñiga as requested Renetta Bowden MD See pt message and advise. Vandana Juan Ma documented in this encounter [facility] 10-16-2022 Instructions Aline Montemayor Ma - 10/16/2022 11:01 AM EST YOUR RECOVERY It may take a few weeks for your cervix to heal. While your cervix heals, you may have: - Vaginal bleeding (less than a normal menstrual period) - Mild cramping - A brown-black vaginal discharge (similar to coffee grounds) which is a result of the paste used to help stop bleeding from the procedure Do NOT put anything in the vagina for 1 week after your colposcopy if your doctor does a biopsy of your cervix. This includes sex, tampons, and douches. If you have any discomfort, you may take an over the counter pain medication (motrin, advil, ibuprofen, tylenol, etc). If this does not relieve your discomfort, contact your doctor's office for a prescription strength pain medication. It is okay to wear a sanitary pad until the discharge and spotting stops. RISKS Although problems seldom occur with colposcopy, there can be some complications. You may feel faint during and shortly after the procedure as well as have some bleeding and vaginal discharge after the procedure. There is also a risk of infection after the procedure. These complications are rare and can be easily treated. You should contact you doctor is you have any of the following: - Heavy bleeding (more than your normal period) - Bleeding with clots - Severe abdominal pain - Fever (more than 100.4F) - Foul smelling vaginal discharge RESULTS If a biopsy was taken, we will have the results of your biopsy in 1-2 weeks. If you do not hear the results of your biopsy after 2 weeks, please contact your physicians office for the results. Depending on the biopsy results, your doctor will determine your follow up plan which may include further testing or treatments. STAYING HEALTHY After the procedure, you will need to see your doctor for follow up visits during the year. At these visits your doctor will check the health of your cervix with a pap smear. After three normal pap smears, your doctor will allow you to return to having exams once a year. If you have another abnormal pap smear, you may need closer follow up for longer or you may need additional treatment. By making a few lifestyle changes after the procedure, you can help protect the health of your cervix: - Have regular pelvic exams and pap smears as ordered by your doctor. - Stop smoking as smoking increases your risk of developing a cancer of the cervix - If you have more than one sexual partner, limit your number of partners and use condoms to reduce your risks of STDs. If you have any additional questions, please contact your doctor's office. documented in this encounter [facility] 10-16-2022 History of Presen t illness Narrative Syeda Lemos is a 42 year old Female who presents today for a colposcopy. The patient's last pap smear was ASCUS with positive HPV from October 2022. Patient has a history of abnormal pap: Yes. The patient has had prior treatment: none. test: negative UNIVERSAL PROTOCOL / SAFETY CHECKLIST Procedure to be Performed: colposcopy with possible biopsy Sign In: A Moment of CARE was completed. Personnel directly involved with the procedure wore the appropriate PPE (Personal Protective Equipment). Patient/Surrogate Stated/Verified: PATIENT VERIFIED(optional for EMERGENT procedures): Patient name, Date of , Relevant allergies, and The intended procedure Time Out Communication: Intended patient and procedure match the source documents. Consent documented and matches the intended procedure. No implant(s) inserted. Sign Out: SIGN OUT (optional for EMERGENT procedures): All specimen containers correctly labeled. All instruments, equipment, possible retained foreign bodies accounted for. Post-procedure follow-up management communicated and Plan of Care Visit completed when applicable. Piero Fleming M.D. PROCEDURE: EXTERNAL GENITALIA: Normal in appearance without lesions VAGINA: Normal in appearance without lesions CERVIX: Speculum placed in vagina and excellent visualization of cervix achieved. Cervix swabbed x 3 with 3% acetic acid solution. Cervix grossly normal. Squamocolumnar junction visualized. No acetowhite changes, punctations, mosaicism or atypical vasculature noted. BIOPSY: Done at 6:00 ECC: done HEMOSTASIS: Obtained with silver nitrate and pressure Procedure Summary: Patient tolerated procedure well and colposcopy was adequate. ASSESSMENT: HPV effect PLAN: Specimens labeled and sent to Pathology. Will notify patient of results in 1-2 weeks. Post-procedure instructions reviewed and written material given to the patient. Piero Fleming MD documented in this encounter [facility] 10-15-2022 History of Presen t illness Narrative Chief Complaint Patient presents with: Pain, Throat HPI Syeda Hernandez is a 42 year old female who presents here today for an acute visit. Pt scheduled today for a same day visit due to throat pain. Pt c/o of throat pain x 1 week, that is not a sore throat, but feels deeper. Located on the left side of her throat. A week ago she felt like she was getting sick and just didn't feel good, thought she was getting sick. No other symptoms. Pain is there mostly but worse with movement or pressing the area. Concerned about mono or issue with lymph node, anxious about this. Pain described as sore and burning, rating pain 3-4/10. Using Advil/Tyelnol and some OTC cold medicine. Denies any dysphagia or issues with swallowing. Rheum - Has psoriatic arthritis, went off Humira. Tends to get boils around pubic area and belly. On Doxycycline to treat a current boil. Reports increased stress and anxiety due to a recent abnormal pap she had done. Has Colposcopy scheduled. Had to use Ativan last night due to increased stress and anxiety. Past medical history, appointments, medications, allergies reviewed. Previous Medical History PAST MEDICAL HISTORY Diagnosis Date Abnormal glandular Papanicolaou smear of cervix Abn. Pap smear (cervix) Generalized anxiety disorder Irritable bowel syndrome Lumbosacral neuritis PMH - PAST MEDICAL HISTORY OF DEGENERATIVE DISC DISEASE Psoriasis 07/21/2020 Previous Surgical History PAST SURGICAL HISTORY Procedure Laterality Date CHOLECYSTECTOMY 04/2005 COLPOSCOPY CERVIX UPPER/ADJACENT VAGINA Colposcopy INSERT INTRAUTERINE DEVICE 12/2017 Mirena PAST SURGICAL HISTORY OF 2002 WISDOM TEETH X 4 REMOVED PAST SURGICAL HISTORY OF Left 10/09/2018 Left foot bunionectomy, with correction of hammer toes and midfoot fusion - Dr. Carrasquillo TYMPANOSTOMY LOCAL/TOPICAL ANESTHESIA Family History FAMILY HISTORY Problem Relation Age of Onset Diabetes Mother Heart Mother DBL BYPASS SURG Psychiatry Mother sever depression other (vascular dementia) Mother Heart Father DBL BYPASS Diabetes Brother Diabetes Maternal Grandmother Cancer Paternal Grandmother SKIN CA, COLON CANCER Diabetes Paternal Grandfather Diabetes Maternal Aunt Patient Allergies ALLERGIES No Known Allergies Current Medications Current Outpatient Medications on File Prior to Visit Medication Sig sulfamethoxazole-trimethoprim (BACTRIM DS) 800-160 mg per tablet Take 1 tablet by mouth twice daily for 10 days. doxycycline (VIBRA-TABS) 100 mg tablet Take 1 tablet by mouth twice daily for 10 days. tirzepatide (MOUNJARO) 7.5 mg/0.5 mL pen injector Inject 7.5 mg subcutaneously one time a week. albuterol HFA (PROAIR HFA) 90 mcg/actuation inhaler Inhale 2 Puffs as instructed every 6 hours as needed. levonorgestrel (MIRENA) 20 mcg/24 hr (5 years) IUD Inserted in office No current facility-administered medications on file prior to visit. Social History Social History Tobacco Use Smoking status: Former Years: 5.00 Types: Cigarettes Quit date: 08/23/2006 Years since quittin.1 Smokeless tobacco: Never Tobacco comments: Not smoking the last 2 years after restarting Vaping Use Vaping Use: Never used Substance Use Topics Alcohol use: Yes Comment: Occasionally Drug use: No EXAM: BP 136/84 (BP Site: Right Arm, BP Position: Sitting, BP Cuff Size: Regular Adult) Pulse 82 Resp 16 Wt 116.4 kg (256 lb 9.6 oz) LMP 04/24/2017 BMI 34.80 kg/m General Appearance: Well appearing, alert, in no acute distress, well-hydrated, well nourished and Overweight. Ears: External ears normal, canals clear. Minimal clear fluid noted in R ear. Oropharynx: Lips, mucosa, and tongue normal, teeth and gums normal, oropharynx normal. Neck: Supple, no adenopathy or other swelling. Health Maintenance List HEPATITIS B(1 of 3 - 3-dose series) Never done DTAP,TDAP,TD(3 - Td or Tdap) due on 07/14/2019 COVID-19 VACCINE(4 - Booster for Moderna series) due on 10/31/2021 MAMMOGRAM due on 10/19/2022 PAP TESTING due on 10/03/2027 HPV TESTING due on 10/03/2027 INFLUENZA Completed DEPRESSION ASSESSMENT Completed HEPATITIS C SCREENING Completed HIV SCREENING Completed Data reviewed Epic ASSESSMENT/PLAN: 1. Pain in throat - ICD9: 784.1, ICD10: R07.0 (primary diagnosis) - More then likely related to muscle strain due to increased stress/anxiety. - If viral, use OTC cold medication 2. Muscle strain - ICD9: 848.9, ICD10: T14.8XXA - As noted above. - Use Tylenol/Advil 3. Anxiety - ICD9: 300.00, ICD10: F41.9 - Cont use of Ativan prn. Update office if not improving in 5-7 days I agree with the Chief Complaint, ROS, and Past Histories independently gathered by the clinical family readiness support assistant and the remaining scribed note accurately describes my personal service to the patient. Medical Decision Making: Problems: Low: Acute, uncomplicated illness or injury Risk: Low: Low risk from testing/treatment Medical Decision Making Level: 3 - Low Renetta Bowden MD The documentation for this note was completed by Vandana Juan Ma acting as scribe for Renetta Bowden MD. October 15, 2022 11:06 AM. Vandana Juan Ma documented in this encounter [facility] 10-11-2022 Miscellaneous Notes Pt wanted notified via [employer]. Sent message making her aware we called in regards to this and new Rx was sent in for her. Vandana Juan Ma Called and left a voicemail for the Patient to call back and ask for a nurse to receive the providers message. Yarelis Diaz RN Doxycycline is probably better for infected hair follicle, so I sent a prescription for this in and had the pharmacy cancel the Bactrim Renetta Bowden MD Call to pt and notified. She said after she got off the phone is Bactrim what we use to treat abscesses? She thought she used Doxy before, but Rx's lately are for Augmentin. Will Bactrim treat this? Update pt via [employer] with response. 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 She states she has one now and is requesting provider send in Bactrim for her. Pt reports she uses [facility] in [place]. Please call and advise. documented in this encounter [facility] 10-03-2022 History of Presen t illness Narrative Syeda Lemos is a 42 year old who presents for an annual gynecologic exam without complaints. Menses: irreg on mirena. Contraception: IUD HPV vaccine: No Last Pap: 06/26/2018 normal HPV: 06/25/2018 negative History of abnormal pap: No Last mammogram: 2019 Sexually active: Yes OB History T2 L2 SAB0 IAB0 Ectopic0 Multiple0 Live Births2 Saw Setter History LMP: 04/24/2017, IUD Age at Menarche: Age at First : Age at Menopause: Saw Setter History Comments: Sexual Activity: Yes; Male; Contraception: I.U.D. PAST MEDICAL HISTORY Diagnosis Date Abnormal glandular Papanicolaou smear of cervix Abn. Pap smear (cervix) Generalized anxiety disorder Irritable bowel syndrome Lumbosacral neuritis PMH - PAST MEDICAL HISTORY OF DEGENERATIVE DISC DISEASE Psoriasis 07/21/2020 PAST SURGICAL HISTORY Procedure Laterality Date CHOLECYSTECTOMY 04/2005 COLPOSCOPY CERVIX UPPER/ADJACENT VAGINA Colposcopy INSERT INTRAUTERINE DEVICE 12/2017 Mirena PAST SURGICAL HISTORY OF 2002 WISDOM TEETH X 4 REMOVED PAST SURGICAL HISTORY OF Left 10/09/2018 Left foot bunionectomy, with correction of hammer toes and midfoot fusion - Dr. Carrasquillo TYMPANOSTOMY LOCAL/TOPICAL ANESTHESIA FAMILY HISTORY Problem Relation Age of Onset Diabetes Mother Heart Mother DBL BYPASS SURG Psychiatry Mother sever depression other (vascular dementia) Mother Heart Father DBL BYPASS Diabetes Brother Diabetes Maternal Grandmother Cancer Paternal Grandmother SKIN CA, COLON CANCER Diabetes Paternal Grandfather Diabetes Maternal Aunt SOCIAL HISTORY Social History Tobacco Use Smoking status: Former Years: 5.00 Types: Cigarettes Quit date: 08/23/2006 Years since quittin.1 Smokeless tobacco: Never Tobacco comments: Not smoking the last 2 years after restarting Vaping Use Vaping Use: Never used Substance Use Topics Alcohol use: Yes Comment: Occasionally Drug use: No REVIEW OF SYSTEMS Abdomen: No abdominal pain, nausea, vomiting, diarrhea, or constipation. No bloating, early satiety, indigestion, or increased flatulence. Bladder: No dysuria, gross hematuria, urinary frequency, urinary urgency, or incontinence. Breast: No breast lumps, nipple d/c, overlying skin changes, redness or skin retraction. Allergies and current medication updated:Yes EXAM: BP 108/64 Ht 6' 0 (1.83m) Wt 260 lb (117.9kg) LMP 04/24/2017 BMI 35.25 kg/(m^2). GENERAL: pleasant, female in no apparent distress HEENT: Normocephalic, atraumatic, mucus membranes moist, and no lesions NECK: Supple, full range of motion, no adenopathy, and thyroid normal DERMATOLOGY: Normal, without lesions, non-icteric, and non-hirsute BREAST: soft, non-tender, symmetric, no dominant mass, normal nipple-areolar complex, no lymphadenopathy, and no nipple discharge CHEST: Normal inspiratory effort ABDOMEN: soft, non-tender, and no masses PELVIC: external genitalia normal, normal Bartholin's glands, urethra, [place]'s glands, no vulvar lesions, no cervical lesions, good vaginal support, physiologic discharge present, normal appearing perineal body and perianal region, some vulvar hidratinitis lesions BIMANUAL: uterus normal size, shape and consistency, no adnexal masses, and non-tender RECTOVAGINAL: deferred. NEURO: alert and oriented x3,exam grossly non-focal EXTREMITIES: normal ASSESSMENT/PLAN: 1) Health maintenance: Pap done with HPV. Mammogram ordered. 2) Contraception: IUD. Contraceptive options reviewed and information provided. 3) STD screening: Declined STD check. 4) Follow up one year or sooner as needed Piero Fleming MD documented in this encounter [facility] 09-16-2022 Miscellaneous Notes Patient employee at [employer]. Spoke to insurance-completed authorization of MRI 09/16/22. Patient notified via [employer]Contact message. Conf # [id number] 10/16. Violeta Parker MA documented in this encounter [facility] 09-06-2022 History of Presen t illness Narrative Chief Complaint Patient presents with: Follow Up Immunizations: Flu vaccination HPI Syeda Hernandez is a 42 year old female who presents here today for follow up. No bowel, GI, or urinary issues. Pt does have IBS. Hx of heart issues and strong family hx of heart issues. Had full cardiac work up in [address] Coon at [facility]. No chest pains or SOB. Vertigo: has been dealing with since April, did PT which helped improve the vertigo , they told her she had vestibular neuritis. She was doing fine until earlier this week, when the vertigo started up again causing n/v. Has headache with the vertigo as well. MRI brain ordered to be done at [facility]. Is being treated with Ativan 0.5 mg 1 pill BID prn and 9 day Prednisone taper. She states that she is feeling a lot better, not as bad. This past episode was the worst for her. She had COVID about 2 weeks ago, felt like she had a head cold, wonders if this triggered it. She stats that she also wonders if she has sinus issues going on that triggered the vertigo because she has a runny nose that started yesterday. She tested 2 x for covid which was negative. Weight: is on Mounjaro 5 mg weekly injection. She started medications 6 weeks ago with starting weight 284 lbs. Today she weighs 260 lbs in office, her home scale says 258 lbs. She working out daily, running 2-3 miles. She is watching diet; not eating any fattening foods, only eating whole foods. Will homer eat pizza if her family orders it. She eats protein. The medication has suppressed appetite, she doesn't thing about food. She feels it has motivated her; looks forward to eating healthy and exercising. Will homer has salad and wine. She would like to get below 200 lbs as a goal, would like to be 199 lbs. Would be happy to get down to 230 lbs as well. Follows with [facility] for Psoriatic arthritis. Is on Humira 80 mg injections weekly. Has wellness form to be signed today. Reviewed labs from the hospital. Past medical history, appointments, medications, allergies reviewed. Previous Medical History PAST MEDICAL HISTORY Diagnosis Date Abnormal glandular Papanicolaou smear of cervix Abn. Pap smear (cervix) Generalized anxiety disorder Irritable bowel syndrome Lumbosacral neuritis PMH - PAST MEDICAL HISTORY OF DEGENERATIVE DISC DISEASE Psoriasis 07/21/2020 Previous Surgical History PAST SURGICAL HISTORY Procedure Laterality Date CHOLECYSTECTOMY 04/2005 COLPOSCOPY CERVIX UPPER/ADJACENT VAGINA Colposcopy INSERT INTRAUTERINE DEVICE 12/2017 Mirena PAST SURGICAL HISTORY OF 2002 WISDOM TEETH X 4 REMOVED PAST SURGICAL HISTORY OF Left 10/09/2018 Left foot bunionectomy, with correction of hammer toes and midfoot fusion - Dr. Carrasquillo TYMPANOSTOMY LOCAL/TOPICAL ANESTHESIA Family History FAMILY HISTORY Problem Relation Age of Onset Diabetes Mother Heart Mother DBL BYPASS SURG Psychiatry Mother sever depression other (vascular dementia) Mother Heart Father DBL BYPASS Diabetes Brother Diabetes Maternal Grandmother Cancer Paternal Grandmother SKIN CA, COLON CANCER Diabetes Paternal Grandfather Diabetes Maternal Aunt Patient Allergies ALLERGIES No Known Allergies Current Medications Current Outpatient Medications on File Prior to Visit Medication Sig tirzepatide (MOUNJARO) 5 mg/0.5 mL pen injector Inject 5 mg subcutaneously one time a week. albuterol HFA (PROAIR HFA) 90 mcg/actuation inhaler Inhale 2 Puffs as instructed every 6 hours as needed. adalimumab (HUMIRA PEN SUBCUTANEOUS) Inject 80 mg subcutaneously one time a week. ondansetron orally disintegrating (ZOFRAN ODT) 4 mg disintegrating tablet Take 1 tablet by mouth every 6 hours as needed for nausea/vomiting. meclizine (ANTIVERT) 25 mg tab Take 1 tablet by mouth every 6 hours as needed (dizziness). levonorgestrel (MIRENA) 20 mcg/24 hr (5 years) IUD Inserted in office No current facility-administered medications on file prior to visit. Social History Social History Tobacco Use Smoking status: Former Years: 5.00 Types: Cigarettes Quit date: 08/23/2006 Years since quittin.0 Smokeless tobacco: Never Tobacco comments: Not smoking the last 2 years after restarting Vaping Use Vaping Use: Never used Substance Use Topics Alcohol use: Yes Comment: Occasionally Drug use: No EXAM: BP 124/74 Pulse 74 Resp 16 Wt 117.9 kg (260 lb) LMP 04/24/2017 BMI 35.26 kg/m General Appearance: Well appearing, alert, in no acute distress, well-hydrated, well nourished.. Ears: External ears normal, canals clear. Lungs: Lungs clear to auscultation. No wheezing, rhonchi, rales.. Heart: RRR without murmur, gallop, or rubs. No ectopy. Health Maintenance List HEPATITIS B(1 of 3 - 3-dose series) Never done PNEUMOCOCCAL(1 - PCV) Never done SHINGRIX VACCINE(1 of 2) Never done DTAP,TDAP,TD(3 - Td or Tdap) due on 07/14/2019 COVID-19 VACCINE(4 - Booster for Moderna series) due on 10/31/2021 DEPRESSION ASSESSMENT Never done INFLUENZA(1) due on 07/04/2022 MAMMOGRAM due on 10/19/2022 PAP TESTING due on 06/22/2023 HPV TESTING due on 06/22/2023 HEPATITIS C SCREENING Completed HIV SCREENING Completed Data reviewed [facility] labs ASSESSMENT/PLAN: 1. Vertigo - ICD9: 780.4, ICD10: R42 (primary diagnosis) Continue current medications. MRI ordered 2. Need for influenza vaccination - ICD9: V04.81, ICD10: Z23 - INFLUENZA VACCINE QUADRIVALENT 6 MO - 64 YRS IM 3. Obesity, Class II, BMI 35-39.9 - ICD9: 278.00, ICD10: E66.9 Weight decreasing - Behavioral and pharmacological intervention - Stay on 5 mg dose for now, call if she would like to increase - TIRZEPATIDE 5 MG/0.5 ML SUBCUTANEOUS PEN INJECTOR 4. Wellness examination - ICD9: V70.0, ICD10: Z00.00 - Counseled on healthy diet and regular exercise - Healthy Living form completed. Follow up in 3 months I agree with the Chief Complaint, ROS, and Past Histories independently gathered by the clinical family readiness support assistant and the remaining scribed note accurately describes my personal service to the patient. Medical Decision Making: Problems: Moderate: 1+ chronic illnesses with change and 2+ stable chronic illnesses Data: Unique test(s) ordered: 3+ Risk: Moderate: Drug management Medical Decision Making Level: 4 - Moderate Renetta Bowden MD The documentation for this note was completed by Yvette Miguel Ma acting as scribe for Renetta Bowden MD. September 06, 2022 1:58 PM. Yvette Miguel Ma documented in this encounter [facility] 08-19-2022 History of Presen t illness Narrative POPULATION HEALTH NAVIGATION OUTREACH Action/FYI RP Outreach: Patient Declined ARON consult. Pt identified by name and : YES, via MyChart Outreach Outcome/Action Spoke to patient or caregiver: Patient declined Did you use a PCP flex slot to schedule this appointment? No Reason for Outreach Care Gap or Scheduling/Wellness visits Payer: Payor: MMO / Plan: MMO TPA / Product Type: PPO / Care Gap Reviewed:: ORQ Reminder: Reminder note to check Health Maintenance for items below Health Maintenance items due: HEPATITIS B(1 of 3 - 3-dose series) Never done PNEUMOCOCCAL(1 - PCV) Never done SHINGRIX VACCINE(1 of 2) Never done DTAP,TDAP,TD(3 - Td or Tdap) due on 07/14/2019 COVID-19 VACCINE(4 - Booster for Moderna series) due on 10/31/2021 DEPRESSION ASSESSMENT Never done INFLUENZA(1) due on 07/04/2022 MAMMOGRAM due on 10/19/2022 Message Sent to Practice: No Navigation Signature: Murtaza Jaime August 19, 2022 4:07 PM documented in this encounter [facility] 08-07-2022 Miscellaneous Notes Rx done; needs appt in 1 month Renetta Bowden MD See pt message and advise if this is something you Rx. Vandana Juan Ma documented in this encounter [facility] 04-08-2022 History of Presen t illness Narrative Chief Complaint No chief complaint on file. HPI Syeda Hernandez is a 41 year old female who presents here today for an acute visit. Pt here today with c/o of vertigo x 1 week. Dizziness, mild nausea. Off and on; precipitated by movement; left side is the one affected. Has tried meclizine with minimal relief. Going on a cruise this summer and concerned about how this will affect her. Past medical history, appointments, medications, allergies reviewed. Previous Medical History PAST MEDICAL HISTORY Diagnosis Date Abnormal glandular Papanicolaou smear of cervix Abn. Pap smear (cervix) Generalized anxiety disorder Irritable bowel syndrome Lumbosacral neuritis PMH - PAST MEDICAL HISTORY OF DEGENERATIVE DISC DISEASE Psoriasis 07/21/2020 Previous Surgical History PAST SURGICAL HISTORY Procedure Laterality Date COLPOSCOPY (VAGINOSCOPY) Colposcopy INSERT INTRAUTERINE DEVICE 12/2017 Mirena PAST SURGICAL HISTORY OF 2002 WISDOM TEETH X 4 REMOVED PAST SURGICAL HISTORY OF Left 10/09/2018 Left foot bunionectomy, with correction of hammer toes and midfoot fusion - Dr. Carrasquillo REMOVAL GALLBLADDER 04/2005 TYMPANOSTOMY LOCAL; UNILATERAL Family History FAMILY HISTORY Problem Relation Age of Onset Diabetes Mother Heart Mother DBL BYPASS SURG Psychiatry Mother sever depression other (vascular dementia) Mother Heart Father DBL BYPASS Diabetes Brother Diabetes Maternal Grandmother Cancer Paternal Grandmother SKIN CA, COLON CANCER Diabetes Paternal Grandfather Diabetes Maternal Aunt Patient Allergies ALLERGIES No Known Allergies Current Medications Current Outpatient Medications on File Prior to Visit Medication Sig predniSONE (DELTASONE) 10 mg tablet Take 4 tabs po x 3 days, then 3 tabs x 3 days, then 2 tabs x 3 days, then 1 tab x 3 days. (Patient not taking: Reported on 10/02/2021 ) meclizine (ANTIVERT) 25 mg tab Take 1 tablet by mouth every 6 hours as needed (dizziness). albuterol HFA (PROAIR HFA) 90 mcg/actuation inhaler Inhale 2 Puffs as instructed every 6 hours as needed. levonorgestrel (MIRENA) 20 mcg/24 hr (5 years) IUD Inserted in office USTEKINUMAB (STELARA SUBCUTANEOUS) Inject subcutaneously. (Patient not taking: Reported on 10/02/2021 ) No current facility-administered medications on file prior to visit. Social History Social History Tobacco Use Smoking status: Former Smoker Years: 5.00 Quit date: 08/23/2006 Years since quittin.6 Smokeless tobacco: Never Used Tobacco comment: Not smoking the last 2 years after restarting Vaping Use Vaping Use: Never used Substance Use Topics Alcohol use: Yes Comment: Occasionally Drug use: No EXAM: LMP 04/24/2017 General Appearance: Well appearing, alert, in no acute distress, well-hydrated, well nourished.. Ears: clear fluid anila. Lungs: Lungs clear to auscultation. No wheezing, rhonchi, rales.. Heart: RRR without murmur, gallop, or rubs. No ectopy. Health Maintenance List PNEUMOCOCCAL(1 - PCV) Never done DTAP,TDAP,TD(3 - Td or Tdap) due on 07/14/2019 DEPRESSION SCREENING due on 07/21/2021 COVID-19 VACCINE(4 - Booster for Moderna series) due on 12/06/2021 MAMMOGRAM due on 10/19/2022 PAP TESTING due on 06/22/2023 HPV TESTING due on 06/22/2023 INFLUENZA Completed HEPATITIS C SCREENING Completed HIV SCREENING Completed Data reviewed None ASSESSMENT/PLAN: 1. Vertigo - ICD9: 780.4, ICD10: R42 - CONSULT TO PHYSICAL THERAPY Follow up prn Medical Decision Making: Problems: Low: Acute, uncomplicated illness or injury Risk: Low: Low risk from testing/treatment Medical Decision Making Level: 3 - Low Renetta Bowden MD documented in this encounter [facility] 03-19-2022 Miscellaneous Notes The following approved medication requests have been transmitted electronically. Signed Prescriptions Disp Refills LORazepam (ATIVAN) 0.5 mg 20 tablet 0 Sig: Take 1 tablet by mouth twice daily as needed for up to 10 days. EMMA Class: C-IV ELMA: No Authorizing Provider: RENETTA BOWDEN Ma OK to refill as ordered Last Rx was for #20 pills over one year ago. Renetta Bowden MD Last office visit: 04/23/21 F/u scheduled: none Are you prescribing the Ativan? Yvette Miguel Ma Patient has been identified by name and date of : Yes Pending Prescriptions Disp Refills LORAZEPAM 0.5 MG TABLET EMMA Class: C-IV ELMA: No RX INSTRUCTIONS: Patient aware RX will be sent to pharmacy. No need to notify patient. Christin Dutta documented in this encounter [facility] documented as of this encounter (statuses as of 03/19/2022) [facility]11-25-2009 History of Past illness Narrative* Problem Noted Date Resolved Date Tibialis tendinitis 09/27/2009 12/07/2012 Thoracic or lumbosacral neuritis or radiculitis, unspecified 03/22/2009 12/07/2012 Other psoriasis 11/19/2007 12/07/2012 Unspecified pruritic disorder 11/19/2007 XEROSIS////SEBACEOUS GLAND DIS NEC 11/19/2007 12/07/2012 Supervision of other normal 09/05/2006 12/07/2012 Temporomandibular joint disorders, unspecified 0 2006 12/07/2012 Displacement of lumbar inter vertebral disc without myelopathy 12/04/2005 12/07/2012 Displacement of cervical int ervertebral disc without myelopathy 11/26/2005 12/07/2012 Panic disorder without agoraphobia 07/05/2005 12/07/2012 Family history of ischemic heart disease 005 12/07/2012 documented as of this encounter (statuses as of 04/09/2022) [facility] History of Past illness Narrative* Problem Noted Date Resolved Date Tibialis tendinitis 09/27/2009 12/07/2012 Thoracic or lumbosacral neuritis or radiculitis, unspecified 03/22/2009 12/07/2012 Other psoriasis 11/19/2007 12/07/2012 Unspecified pruritic disorder 11/19/2007 XEROSIS////SEBACEOUS GLAND DIS NEC 11/19/2007 12/07/2012 Supervision of other normal 09/05/2006 12/07/2012 Temporomandibular joint disorders, unspecified 0 2006 12/07/2012 Displacement of lumbar inter vertebral disc without myelopathy 12/04/2005 12/07/2012 Displacement of cervical int ervertebral disc without myelopathy 11/26/2005 12/07/2012 Panic disorder without agoraphobia 07/05/2005 12/07/2012 Family history of ischemic heart disease 005 12/07/2012 documented as of this encounter (statuses as of 07/17/2022) [facility] History of Past illness Narrative* Problem Noted Date Resolved Date Tibialis tendinitis 09/27/2009 12/07/2012 Thoracic or lumbosacral neuritis or radiculitis, unspecified 03/22/2009 12/07/2012 Other psoriasis 11/19/2007 12/07/2012 Unspecified pruritic disorder 11/19/2007 XEROSIS////SEBACEOUS GLAND DIS NEC 11/19/2007 12/07/2012 Supervision of other normal 09/05/2006 12/07/2012 Temporomandibular joint disorders, unspecified 0 2006 12/07/2012 Displacement of lumbar inter vertebral disc without myelopathy 12/04/2005 12/07/2012 Displacement of cervical int ervertebral disc without myelopathy 11/26/2005 12/07/2012 Panic disorder without agoraphobia 07/05/2005 12/07/2012 Family history of ischemic heart disease 005 12/07/2012 documented as of this encounter (statuses as of 08/07/2022) [place] [address]-25-2009 History of Past illness Narrative* Problem Noted Date Resolved Date Tibialis tendinitis 09/27/2009 12/07/2012 Thoracic or lumbosacral neuritis or radiculitis, unspecified 03/22/2009 12/07/2012 Other psoriasis 11/19/2007 12/07/2012 Unspecified pruritic disorder 11/19/2007 XEROSIS////SEBACEOUS GLAND DIS NEC 11/19/2007 12/07/2012 Supervision of other normal 09/05/2006 12/07/2012 Temporomandibular joint disorders, unspecified 0 2006 12/07/2012 Displacement of lumbar inter vertebral disc without myelopathy 12/04/2005 12/07/2012 Displacement of cervical int ervertebral disc without myelopathy 11/26/2005 12/07/2012 Panic disorder without agoraphobia 07/05/2005 12/07/2012 Family history of ischemic heart disease 005 12/07/2012 documented as of this encounter (statuses as of 08/19/2022) [facility] History of Past illness Narrative* Problem Noted Date Resolved Date Tibialis tendinitis 09/27/2009 12/07/2012 Thoracic or lumbosacral neuritis or radiculitis, unspecified 03/22/2009 12/07/2012 Other psoriasis 11/19/2007 12/07/2012 Unspecified pruritic disorder 11/19/2007 XEROSIS////SEBACEOUS GLAND DIS NEC 11/19/2007 12/07/2012 Supervision of other normal 09/05/2006 12/07/2012 Temporomandibular joint disorders, unspecified 0 2006 12/07/2012 Displacement of lumbar inter vertebral disc without myelopathy 12/04/2005 12/07/2012 Displacement of cervical int ervertebral disc without myelopathy 11/26/2005 12/07/2012 Panic disorder without agoraphobia 07/05/2005 12/07/2012 Family history of ischemic heart disease 005 12/07/2012 documented as of this encounter (statuses as of 09/06/2022) [facility] History of Past illness Narrative* Problem Noted Date Resolved Date Tibialis tendinitis 09/27/2009 12/07/2012 Thoracic or lumbosacral neuritis or radiculitis, unspecified 03/22/2009 12/07/2012 Other psoriasis 11/19/2007 12/07/2012 Unspecified pruritic disorder 11/19/2007 XEROSIS////SEBACEOUS GLAND DIS NEC 11/19/2007 12/07/2012 Supervision of other normal 09/05/2006 12/07/2012 Temporomandibular joint disorders, unspecified 0 2006 12/07/2012 Displacement of lumbar inter vertebral disc without myelopathy 12/04/2005 12/07/2012 Displacement of cervical int ervertebral disc without myelopathy 11/26/2005 12/07/2012 Panic disorder without agoraphobia 07/05/2005 12/07/2012 Family history of ischemic heart disease 005 12/07/2012 documented as of this encounter (statuses as of 09/16/2022) [place] [address]-25-2009 History of Past illness Narrative* Problem Noted Date Resolved Date Tibialis tendinitis 09/27/2009 12/07/2012 Thoracic or lumbosacral neuritis or radiculitis, unspecified 03/22/2009 12/07/2012 Other psoriasis 11/19/2007 12/07/2012 Unspecified pruritic disorder 11/19/2007 XEROSIS////SEBACEOUS GLAND DIS NEC 11/19/2007 12/07/2012 Supervision of other normal 09/05/2006 12/07/2012 Temporomandibular joint disorders, unspecified 0 2006 12/07/2012 Displacement of lumbar inter vertebral disc without myelopathy 12/04/2005 12/07/2012 Displacement of cervical int ervertebral disc without myelopathy 11/26/2005 12/07/2012 Panic disorder without agoraphobia 07/05/2005 12/07/2012 Family history of ischemic heart disease 005 12/07/2012 documented as of this encounter (statuses as of 09/30/2022) [place] [address]-25-2009 History of Past illness Narrative* Problem Noted Date Resolved Date Tibialis tendinitis 09/27/2009 12/07/2012 Thoracic or lumbosacral neuritis or radiculitis, unspecified 03/22/2009 12/07/2012 Other psoriasis 11/19/2007 12/07/2012 Unspecified pruritic disorder 11/19/2007 XEROSIS////SEBACEOUS GLAND DIS NEC 11/19/2007 12/07/2012 Supervision of other normal 09/05/2006 12/07/2012 Temporomandibular joint disorders, unspecified 0 2006 12/07/2012 Displacement of lumbar inter vertebral disc without myelopathy 12/04/2005 12/07/2012 Displacement of cervical int ervertebral disc without myelopathy 11/26/2005 12/07/2012 Panic disorder without agoraphobia 07/05/2005 12/07/2012 Family history of ischemic heart disease 005 12/07/2012 documented as of this encounter (statuses as of 10/03/2022) [facility] History of Past illness Narrative* Problem Noted Date Resolved Date Tibialis tendinitis 09/27/2009 12/07/2012 Thoracic or lumbosacral neuritis or radiculitis, unspecified 03/22/2009 12/07/2012 Other psoriasis 11/19/2007 12/07/2012 Unspecified pruritic disorder 11/19/2007 XEROSIS////SEBACEOUS GLAND DIS NEC 11/19/2007 12/07/2012 Supervision of other normal 09/05/2006 12/07/2012 Temporomandibular joint disorders, unspecified 0 2006 12/07/2012 Displacement of lumbar inter vertebral disc without myelopathy 12/04/2005 12/07/2012 Displacement of cervical int ervertebral disc without myelopathy 11/26/2005 12/07/2012 Panic disorder without agoraphobia 07/05/2005 12/07/2012 Family history of ischemic heart disease 005 12/07/2012 documented as of this encounter (statuses as of 10/11/2022) [place] [address]-25-2009 History of Past illness Narrative* Problem Noted Date Resolved Date Tibialis tendinitis 09/27/2009 12/07/2012 Thoracic or lumbosacral neuritis or radiculitis, unspecified 03/22/2009 12/07/2012 Other psoriasis 11/19/2007 12/07/2012 Unspecified pruritic disorder 11/19/2007 XEROSIS////SEBACEOUS GLAND DIS NEC 11/19/2007 12/07/2012 Supervision of other normal 09/05/2006 12/07/2012 Temporomandibular joint disorders, unspecified 0 2006 12/07/2012 Displacement of lumbar inter vertebral disc without myelopathy 12/04/2005 12/07/2012 Displacement of cervical int ervertebral disc without myelopathy 11/26/2005 12/07/2012 Panic disorder without agoraphobia 07/05/2005 12/07/2012 Family history of ischemic heart disease 005 12/07/2012 documented as of this encounter (statuses as of 10/15/2022) [facility] History of Past illness Narrative* Problem Noted Date Resolved Date Tibialis tendinitis 09/27/2009 12/07/2012 Thoracic or lumbosacral neuritis or radiculitis, unspecified 03/22/2009 12/07/2012 Other psoriasis 11/19/2007 12/07/2012 Unspecified pruritic disorder 11/19/2007 XEROSIS////SEBACEOUS GLAND DIS NEC 11/19/2007 12/07/2012 Supervision of other normal 09/05/2006 12/07/2012 Temporomandibular joint disorders, unspecified 0 2006 12/07/2012 Displacement of lumbar inter vertebral disc without myelopathy 12/04/2005 12/07/2012 Displacement of cervical int ervertebral disc without myelopathy 11/26/2005 12/07/2012 Panic disorder without agoraphobia 07/05/2005 12/07/2012 Family history of ischemic heart disease 005 12/07/2012 documented as of this encounter (statuses as of 10/16/2022) [facility] History of Past illness Narrative* Problem Noted Date Resolved Date Tibialis tendinitis 09/27/2009 12/07/2012 Thoracic or lumbosacral neuritis or radiculitis, unspecified 03/22/2009 12/07/2012 Other psoriasis 11/19/2007 12/07/2012 Unspecified pruritic disorder 11/19/2007 XEROSIS////SEBACEOUS GLAND DIS NEC 11/19/2007 12/07/2012 Supervision of other normal 09/05/2006 12/07/2012 Temporomandibular joint disorders, unspecified 0 2006 12/07/2012 Displacement of lumbar inter vertebral disc without myelopathy 12/04/2005 12/07/2012 Displacement of cervical int ervertebral disc without myelopathy 11/26/2005 12/07/2012 Panic disorder without agoraphobia 07/05/2005 12/07/2012 Family history of ischemic heart disease 005 12/07/2012 documented as of this encounter (statuses as of 11/09/2022) [facility] History of Past illness Narrative* Problem Noted Date Resolved Date Tibialis tendinitis 09/27/2009 12/07/2012 Thoracic or lumbosacral neuritis or radiculitis, unspecified 03/22/2009 12/07/2012 Other psoriasis 11/19/2007 12/07/2012 Unspecified pruritic disorder 11/19/2007 XEROSIS////SEBACEOUS GLAND DIS NEC 11/19/2007 12/07/2012 Supervision of other normal 09/05/2006 12/07/2012 Temporomandibular joint disorders, unspecified 0 2006 12/07/2012 Displacement of lumbar inter vertebral disc without myelopathy 12/04/2005 12/07/2012 Displacement of cervical int ervertebral disc without myelopathy 11/26/2005 12/07/2012 Panic disorder without agoraphobia 07/05/2005 12/07/2012 Family history of ischemic heart disease 005 12/07/2012 documented as of this encounter (statuses as of 11/12/2022) [facility]2009 History of Past illness Narrative* Problem Noted Date Resolved Date Tibialis tendinitis 09/27/2009 12/07/2012 Thoracic or lumbosacral neuritis or radiculitis, unspecified 03/22/2009 12/07/2012 Other psoriasis 11/19/2007 12/07/2012 Unspecified pruritic disorder 11/19/2007 XEROSIS////SEBACEOUS GLAND DIS NEC 11/19/2007 12/07/2012 Supervision of other normal 09/05/2006 12/07/2012 Temporomandibular joint disorders, unspecified 0 2006 12/07/2012 Displacement of lumbar inter vertebral disc without myelopathy 12/04/2005 12/07/2012 Displacement of cervical int ervertebral disc without myelopathy 11/26/2005 12/07/2012 Panic disorder without agoraphobia 07/05/2005 12/07/2012 Family history of ischemic heart disease 005 12/07/2012 documented as of this encounter (statuses as of 11/13/2022) [facility]2009 History of Past illness Narrative* Problem Noted Date Resolved Date Tibialis tendinitis 09/27/2009 12/07/2012 Thoracic or lumbosacral neuritis or radiculitis, unspecified 03/22/2009 12/07/2012 Other psoriasis 11/19/2007 12/07/2012 Unspecified pruritic disorder 11/19/2007 XEROSIS////SEBACEOUS GLAND DIS NEC 11/19/2007 12/07/2012 Supervision of other normal 09/05/2006 12/07/2012 Temporomandibular joint disorders, unspecified 0 2006 12/07/2012 Displacement of lumbar inter vertebral disc without myelopathy 12/04/2005 12/07/2012 Displacement of cervical int ervertebral disc without myelopathy 11/26/2005 12/07/2012 Panic disorder without agoraphobia 07/05/2005 12/07/2012 Family history of ischemic heart disease 005 12/07/2012 documented as of this encounter (statuses as of 11/22/2022) [facility] History of Past illness Narrative* Problem Noted Date Resolved Date Tibialis tendinitis 09/27/2009 12/07/2012 Thoracic or lumbosacral neuritis or radiculitis, unspecified 03/22/2009 12/07/2012 Other psoriasis 11/19/2007 12/07/2012 Unspecified pruritic disorder 11/19/2007 XEROSIS////SEBACEOUS GLAND DIS NEC 11/19/2007 12/07/2012 Supervision of other normal 09/05/2006 12/07/2012 Temporomandibular joint disorders, unspecified 0 2006 12/07/2012 Displacement of lumbar inter vertebral disc without myelopathy 12/04/2005 12/07/2012 Displacement of cervical int ervertebral disc without myelopathy 11/26/2005 12/07/2012 Panic disorder without agoraphobia 07/05/2005 12/07/2012 Family history of ischemic heart disease 005 12/07/2012 documented as of this encounter (statuses as of 12/13/2022) [facility] History of Past illness Narrative* Problem Noted Date Resolved Date Tibialis tendinitis 09/27/2009 12/07/2012 Thoracic or lumbosacral neuritis or radiculitis, unspecified 03/22/2009 12/07/2012 Other psoriasis 11/19/2007 12/07/2012 Unspecified pruritic disorder 11/19/2007 XEROSIS////SEBACEOUS GLAND DIS NEC 11/19/2007 12/07/2012 Supervision of other normal 09/05/2006 12/07/2012 Temporomandibular joint disorders, unspecified 0 2006 12/07/2012 Displacement of lumbar inter vertebral disc without myelopathy 12/04/2005 12/07/2012 Displacement of cervical int ervertebral disc without myelopathy 11/26/2005 12/07/2012 Panic disorder without agoraphobia 07/05/2005 12/07/2012 Family history of ischemic heart disease 005 12/07/2012 documented as of this encounter (statuses as of 12/16/2022) [place] [address]-25-2009 History of Past illness Narrative* Problem Noted Date Resolved Date Tibialis tendinitis 09/27/2009 12/07/2012 Thoracic or lumbosacral neuritis or radiculitis, unspecified 03/22/2009 12/07/2012 Other psoriasis 11/19/2007 12/07/2012 Unspecified pruritic disorder 11/19/2007 XEROSIS////SEBACEOUS GLAND DIS NEC 11/19/2007 12/07/2012 Supervision of other normal 09/05/2006 12/07/2012 Temporomandibular joint disorders, unspecified 0 2006 12/07/2012 Displacement of lumbar inter vertebral disc without myelopathy 12/04/2005 12/07/2012 Displacement of cervical int ervertebral disc without myelopathy 11/26/2005 12/07/2012 Panic disorder without agoraphobia 07/05/2005 12/07/2012 Family history of ischemic heart disease 005 12/07/2012 documented as of this encounter (statuses as of 01/21/2023) [facility] History of Past illness Narrative* Problem Noted Date Diagnosed Date Resolved Date Tibialis tendinitis 09/27/2009 12/07/19 13 Thoracic or lumbosacral neur itis or radiculitis, unspecified 03/22/2009 12/07/2012 Other psoriasis 11/19/2007 12/07/2012 Unspecified pruritic disorder 11/19/2007 12/07/2012 XEROSIS////SEBACEOUS GLAND DIS NEC 11/19/2007 12/07/2012 Supervision of other normal 09/05/2006 12/07/2012 Temporomandibular joint diso rders, unspecified 2006 12/07/2012 Displacement of lumbar inter vertebral disc without myelopathy 12/04/2005 12/07/2012 Displacement of cervical int ervertebral disc without myelopathy 11/26/2005 12/07/2012 Panic disorder without agoraphobia 07/05/2005 12/07/2012 Family history of ischemic heart disease 07/05/2005 12/07/2012 documented as of this encounter (statuses as of 06/24/2023) [facility] History of Past illness Narrative* Problem Noted Date Diagnosed Date Resolved Date Tibialis tendinitis 09/27/2009 12/07/19 13 Thoracic or lumbosacral neur itis or radiculitis, unspecified 03/22/2009 12/07/2012 Other psoriasis 11/19/2007 12/07/2012 Unspecified pruritic disorder 11/19/2007 12/07/2012 XEROSIS////SEBACEOUS GLAND DIS NEC 11/19/2007 12/07/2012 Supervision of other normal 09/05/2006 12/07/2012 Temporomandibular joint diso rders, unspecified 2006 12/07/2012 Displacement of lumbar inter vertebral disc without myelopathy 12/04/2005 12/07/2012 Displacement of cervical int ervertebral disc without myelopathy 11/26/2005 12/07/2012 Panic disorder without agoraphobia 07/05/2005 12/07/2012 Family history of ischemic heart disease 07/05/2005 12/07/2012 documented as of this encounter (statuses as of 07/01/2023) [facility] History of Past illness Narrative* Problem Noted Date Diagnosed Date Resolved Date Tibialis tendinitis 09/27/2009 12/07/19 13 Thoracic or lumbosacral neur itis or radiculitis, unspecified 03/22/2009 12/07/2012 Other psoriasis 11/19/2007 12/07/2012 Unspecified pruritic disorder 11/19/2007 12/07/2012 XEROSIS////SEBACEOUS GLAND DIS NEC 11/19/2007 12/07/2012 Supervision of other normal 09/05/2006 12/07/2012 Temporomandibular joint diso rders, unspecified 2006 12/07/2012 Displacement of lumbar inter vertebral disc without myelopathy 12/04/2005 12/07/2012 Displacement of cervical int ervertebral disc without myelopathy 11/26/2005 12/07/2012 Panic disorder without agoraphobia 07/05/2005 12/07/2012 Family history of ischemic heart disease 07/05/2005 12/07/2012 documented as of this encounter (statuses as of 08/28/2023) [facility] History of Past illness Narrative* Problem Noted Date Diagnosed Date Resolved Date Tibialis tendinitis 09/27/2009 12/07/19 13 Thoracic or lumbosacral neur itis or radiculitis, unspecified 03/22/2009 12/07/2012 Other psoriasis 11/19/2007 12/07/2012 Unspecified pruritic disorder 11/19/2007 12/07/2012 XEROSIS////SEBACEOUS GLAND DIS NEC 11/19/2007 12/07/2012 Supervision of other normal 09/05/2006 12/07/2012 Temporomandibular joint diso rders, unspecified 2006 12/07/2012 Displacement of lumbar inter vertebral disc without myelopathy 12/04/2005 12/07/2012 Displacement of cervical int ervertebral disc without myelopathy 11/26/2005 12/07/2012 Panic disorder without agoraphobia 07/05/2005 12/07/2012 Family history of ischemic heart disease 07/05/2005 12/07/2012 documented as of this encounter (statuses as of 09/30/2023) [facility] History of Past illness Narrative* Problem Noted Date Diagnosed Date Resolved Date Tibialis tendinitis 09/27/2009 12/07/19 13 Thoracic or lumbosacral neur itis or radiculitis, unspecified 03/22/2009 12/07/2012 Other psoriasis 11/19/2007 12/07/2012 Unspecified pruritic disorder 11/19/2007 12/07/2012 XEROSIS////SEBACEOUS GLAND DIS NEC 11/19/2007 12/07/2012 Supervision of other normal 09/05/2006 12/07/2012 Temporomandibular joint diso rders, unspecified 2006 12/07/2012 Displacement of lumbar inter vertebral disc without myelopathy 12/04/2005 12/07/2012 Displacement of cervical int ervertebral disc without myelopathy 11/26/2005 12/07/2012 Panic disorder without agoraphobia 07/05/2005 12/07/2012 Family history of ischemic heart disease 07/05/2005 12/07/2012 documented as of this encounter (statuses as of 12/01/2023) [facility] History of Past illness Narrative* Problem Noted Date Diagnosed Date Resolved Date Tibialis tendinitis 09/27/2009 12/07/19 13 Thoracic or lumbosacral neur itis or radiculitis, unspecified 03/22/2009 12/07/2012 Other psoriasis 11/19/2007 12/07/2012 Unspecified pruritic disorder 11/19/2007 12/07/2012 XEROSIS////SEBACEOUS GLAND DIS NEC 11/19/2007 12/07/2012 Supervision of other normal 09/05/2006 12/07/2012 Temporomandibular joint diso rders, unspecified 2006 12/07/2012 Displacement of lumbar inter vertebral disc without myelopathy 12/04/2005 12/07/2012 Displacement of cervical int ervertebral disc without myelopathy 11/26/2005 12/07/2012 Panic disorder without agoraphobia 07/05/2005 12/07/2012 Family history of ischemic heart disease 07/05/2005 12/07/2012 documented as of this encounter (statuses as of 12/05/2023) [facility] Diagnosis Panic attacks- Primary Panic disorder without agoraphobia documented in this encounter [facility] Diagnosis Vertigo- Primary Dizziness and giddiness documented [facility] Diagnosis Obesity, Class III, BMI 40-49.9 (morbid obesity) (HCC)- Primary Morbid obesity Obesity, Class II, BMI 35-39.9 Obesity, unspecified [facility] Diagnosis Vertigo- Primary Dizziness and giddiness Need for influenza vaccination Need for prophylactic vaccination and inoculation against influenza Obesity, Class II, BMI 35-39.9 Obesity, unspecified [facility] Obesity, Class II, BMI 35-39.9 Obesity, unspecified [facility] Diagnosis Encounter for gynecological examination (general) (routine) without abnormal findings- Primary Screening for cervical cancer Screening for malignant neoplasm of the cervix Encounter for screening for human papillomavirus (HPV) Special screening examination for human papillomavirus (HPV) documented in this encounter [facility] note* Diagnosis Pain in throat- Primary Throat pain documented in this encounter [facility] note* Diagnosis ASCUS with positive high risk HPV cervical- Primary Cervical high risk human papillomavirus (HPV) DNA test positive documented in this encounter [facility] note* Diagnosis Irritable bowel syndrome, unspecified type- Primary documented in this encounter [facility] note* Diagnosis Panic attacks Panic disorder without agoraphobia documented in this encounter [facility] note* Diagnosis Obesity, Class I, BMI 30-34.9- Primary Obesity, unspecified Irritable bowel syndrome with both constipation and diarrhea documented in this encounter [facility] note* Diagnosis Encounter for IUD removal and reinsertion- Primary Encounter for removal and reinsertion of intrauterine contraceptive device documented in this encounter [facility] note* Diagnosis Encounter for IUD removal- Primary Encounter for removal of intrauterine contraceptive device Encounter for IUD insertion Encounter for insertion of intrauterine contraceptive device documented in this encounter [facility] note* Diagnosis Obesity, Class I, BMI 30-34.9- Primary Obesity, unspecified documented in this encounter [facility] note* Diagnosis Panic attacks Panic disorder without agoraphobia documented in this encounter [facility] note* Diagnosis Obesity, Class I, BMI 30-34.9- Primary Obesity, unspecified Dizziness Dizziness and giddiness documented in this encounter [facility] note* Diagnosis Encounter for screening mammogram for breast cancer documented in this encounter [facility] for referral (narrative)* Outpatient Procedure (Routine) - Authorized Specialty Diagnoses / Procedures Referred By Samy conde Referred To Contact [facility] Diagnoses Encounter for IUD removal and reinsertion Procedures INSERT INTRAUTERINE DEVICE LEVONORGESTREL IU 52MG 5 YR INSERT INTRAUTERINE DEVICE Piero [place] [address] [facility] [address] [place] [address] Referral ID Status Reason Start Date Expiration Date Visits Requested Visits Authorized [id number] Authorized Auto-Generat ed Referral 12/16/2022 12/13/2023 [facility] Procedure Only (Routine) - Pending Review Specialty Diagnoses / Procedures Referred By Samy conde Referred To Contact [facility] Diagnoses Encounter for screening mammogram for breast cancer Procedures [place] SCREENING SCREENING MAMMOGRAPHY BI 2-VIEW BREAST INC CAD Renetta Bowden MD [address] [place] [address] [facility] [address] [place] [address] Referral ID Status Reason Start Date Expiration Date Visits Requested Visits Authorized [id number] Pending Review Auto-Generat ed Referral 11/26/2023 12/25/2024 1 1 [facility] Reason for Referral Specialty Diagnoses / Procedures Referred By Samy conde Referred To Contact [facility] Diagnoses Vertigo Procedures CONSULT TO PHYSICAL THERAPY PHYSICAL THERAPY EVALUATION HIGH COMPLEX 45 MINS Renetta Bowden MD [address] [place] [address] [facility] [place] [address] [place] [address] Referral ID Status Reason Start Date Expiration Date Visits Requested Visits Authorized [id number] Pending Review Auto-Generat ed Referral 04/08/2022 04/08/2023 1 1 Specialty Diagnoses / Procedures Referred By Samy conde Referred To Contact Gastroenterology Diagnoses Irritable bowel syndrome, unspecified type Procedures CONSULT TO GASTROENTEROLOGY OFFICE/OUTPATIENT [facility] MDM 60-74 MINUTES Renetta Bowden MD [address] [place] [address] Referral ID Status Reason Start Date Expiration Date Visits Requested Visits Authorized [id number] Authorized PCP Requested Referral 11/08/2022 11/08/2023 1 1 Specialty Diagnoses / Procedures Referred By Samy conde [place] [address] [place] [address] Referral ID Status Reason Start Date Expiration Date Visits Re quested Visits Authorized [id number] Closed 1 1 Specialty Diagnoses / Procedures Referred By Contac t Referred To Contact Diagnoses Obesity, Class I, BMI 30-34.9 Renetta Bowden MD [address] [place] [address] Referral ID Status Reason Start Date Expiration Date Visits Re quested Visits Authorized [id number] Closed 1 1 Medications Administered Section Inactive Administered Medications - up to 3 most recent administrations Medication Order MAR Action Action Date Dose Rate Site levonorgestrel 21 mcg/24 hours (8 yrs) 52 mg 1 Each intrauterine device (MIRENA) 1 Each, INTRAUTERINE, ONCE (UP TO 30 DAYS AMB), 1 dose, On Fri01/21/23 at 1130, Hazardous Potential Reproductive Risk Drug: Use appropriate PPE. Given 01/21/2023 11:27 AM EDT 1 Each Summary Purpose Family History No Family History Records Found Advance Directives No Advanced Directives Records Found Additional Source Comments Source Comments (unrecognize d section and content) In the event this informatio n is protected by the Federal Confidentiality of Alcohol and Drug Abuse Patient Records regulations: The Federal rules restrict any use of the information to criminally investigate or prosecute any alcohol or drug abuse patient.[facility], IncIn the event this information is protected by the Federal Confidentiality of Alcohol and Drug Abuse Patient Records regulations: The Federal rules restrict any use of the information to criminally investigate or prosecute any alcohol or drug abuse patient.[facility], IncIn the event this information is protected by the Federal Confidentiality of Alcohol and Drug Abuse Patient Records regulations: The Federal rules restrict any use of the information to criminally investigate or prosecute any alcohol or drug abuse patient.[facility], IncIn the event this information is protected by the Federal Confidentiality of Alcohol and Drug Abuse Patient Records regulations: The Federal rules restrict any use of the information to criminally investigate or prosecute any alcohol or drug abuse patient.[facility], IncIn the event this information is protected by the Federal Confidentiality of Alcohol and Drug Abuse Patient Records regulations: The Federal rules restrict any use of the information to criminally investigate or prosecute any alcohol or drug abuse patient.[facility], IncIn the event this information is protected by the Federal Confidentiality of Alcohol and Drug Abuse Patient Records regulations: The Federal rules restrict any use of the information to criminally investigate or prosecute any alcohol or drug abuse patient.[facility], IncIn the event this information is protected by the Federal Confidentiality of Alcohol and Drug Abuse Patient Records regulations: The Federal rules restrict any use of the information to criminally investigate or prosecute any alcohol or drug abuse patient.[facility], IncIn the event this information is protected by the Federal Confidentiality of Alcohol and Drug Abuse Patient Records regulations: The Federal rules restrict any use of the information to criminally investigate or prosecute any alcohol or drug abuse patient.[facility], IncIn the event this information is protected by the Federal Confidentiality of Alcohol and Drug Abuse Patient Records regulations: The Federal rules restrict any use of the information to criminally investigate or prosecute any alcohol or drug abuse patient.[facility], IncIn the event this information is protected by the Federal Confidentiality of Alcohol and Drug Abuse Patient Records regulations: The Federal rules restrict any use of the information to criminally investigate or prosecute any alcohol or drug abuse patient.[facility], IncIn the event this information is protected by the Federal Confidentiality of Alcohol and Drug Abuse Patient Records regulations: The Federal rules restrict any use of the information to criminally investigate or prosecute any alcohol or drug abuse patient.[facility], IncIn the event this information is protected by the Federal Confidentiality of Alcohol and Drug Abuse Patient Records regulations: The Federal rules restrict any use of the information to criminally investigate or prosecute any alcohol or drug abuse patient.[facility], IncIn the event this information is protected by the Federal Confidentiality of Alcohol and Drug Abuse Patient Records regulations: The Federal rules restrict any use of the information to criminally investigate or prosecute any alcohol or drug abuse patient.[facility], IncIn the event this information is protected by the Federal Confidentiality of Alcohol and Drug Abuse Patient Records regulations: The Federal rules restrict any use of the information to criminally investigate or prosecute any alcohol or drug abuse patient.[facility], IncIn the event this information is protected by the Federal Confidentiality of Alcohol and Drug Abuse Patient Records regulations: The Federal rules restrict any use of the information to criminally investigate or prosecute any alcohol or drug abuse patient.[facility], IncIn the event this information is protected by the Federal Confidentiality of Alcohol and Drug Abuse Patient Records regulations: The Federal rules restrict any use of the information to criminally investigate or prosecute any alcohol or drug abuse patient.[facility], IncIn the event this information is protected by the Federal Confidentiality of Alcohol and Drug Abuse Patient Records regulations: The Federal rules restrict any use of the information to criminally investigate or prosecute any alcohol or drug abuse patient.[facility], IncIn the event this information is protected by the Federal Confidentiality of Alcohol and Drug Abuse Patient Records regulations: The Federal rules restrict any use of the information to criminally investigate or prosecute any alcohol or drug abuse patient.[facility], IncIn the event this information is protected by the Federal Confidentiality of Alcohol and Drug Abuse Patient Records regulations: The Federal rules restrict any use of the information to criminally investigate or prosecute any alcohol or drug abuse patient.[facility], IncIn the event this information is protected by the Federal Confidentiality of Alcohol and Drug Abuse Patient Records regulations: The Federal rules restrict any use of the information to criminally investigate or prosecute any alcohol or drug abuse patient.[facility], IncIn the event this information is protected by the Federal Confidentiality of Alcohol and Drug Abuse Patient Records regulations: The Federal rules restrict any use of the information to criminally investigate or prosecute any alcohol or drug abuse patient.[facility], IncIn the event this information is protected by the Federal Confidentiality of Alcohol and Drug Abuse Patient Records regulations: The Federal rules restrict any use of the information to criminally investigate or prosecute any alcohol or drug abuse patient.[facility], IncIn the event this information is protected by the Federal Confidentiality of Alcohol and Drug Abuse Patient Records regulations: The Federal rules restrict any use of the information to criminally investigate or prosecute any alcohol or drug abuse patient.[facility], IncIn the event this information is protected by the Federal Confidentiality of Alcohol and Drug Abuse Patient Records regulations: The Federal rules restrict any use of the information to criminally investigate or prosecute any alcohol or drug abuse patient.[facility], IncIn the event this information is protected by the Federal Confidentiality of Alcohol and Drug Abuse Patient Records regulations: The Federal rules restrict any use of the information to criminally investigate or prosecute any alcohol or drug abuse patient.[facility] Reason for Visit (unrecogniz ed section and content) Reason Comments Dizziness 1 week Specialty Diagnoses / Procedures Referred By Contmery t Referred To Contact Family Practice / FAMILY MEDICINE Diagnoses Vertigo VERTIGO X 1 WEEK Procedures OFFICE/OUTPATIENT ESTABLISHED HIGH MDM 40-54 MIN 4C EST Renetta Bowden MD [address] [place] [address] Renetta Bowden MD [address] [place] [address] Referral ID Status Reason Start Date Expiration Date Visits Re quested Visits Authorized [id number] Closed 04/03/2022 11/02/2022 1 1 Reason Onset Date Comments Follow Up Immunizations 09/06/2022 Flu vaccination Specialty Diagnoses / Procedures Referred By Contac t Referred To Contact Family Medicine / FAMILY MEDICINE Diagnoses 3 week follow up Procedures OFFICE/OUTPATIENT ESTABLISHED LOW MDM 20-29 MIN 4C EST Renetta Bowden MD [address] [place] [address] Renetta Bowden MD [address] [place] [address] Referral ID Status Reason Start Date Expiration Date Visits Re quested Visits Authorized [id number] Closed 09/06/2022 11/02/2022 1 1 Reason Comments Yearly Exam Specialty Diagnoses / Procedures Referred By Contac t Referred To Contact CERTIFIED PATHOLOGY ASSISTANT Diagnoses Annual physical exam Annual Procedures OFFICE/OUTPATIENT ESTABLISHED HIGH MDM 40-54 MIN EST WHI ANNUAL PATIENT Renetta Bowden MD [address] [place] [address] Piero Fleming MD [address] [place] [address] Referral ID Status Reason Start Date Expiration Date V isits Requested Visits Authorized [id number] Authorized 09/23/2022 11/02/2022 10 10 Reason Comments Medication Request Reason Comments Pain, Throat Specialty Diagnoses / Procedures Referred By Contac t Referred To Contact Family Medicine / FAMILY MEDICINE Diagnoses throat pain not sore throat pain she states deeper Procedures 4C EST Self Renetta Bowden MD [address] [place] [address] Referral ID Status Reason Start Date Expiration Date Visits Re quested Visits Authorized [id number] Closed 10/15/2022 11/02/2022 1 1 Reason Comments Colposcopy Specialty Diagnoses / Procedures Referred By Samy conde Referred To Contact [facility] Diagnoses ASCUS with positive high risk HPV cervical Procedures COLPOSCOPY COLPOSCOPY CERVIX BX CERVIX & ENDOCRV CURRETAGE Piero Fleming MD [address] [place] [address] [address] Referral ID Status Reason Start Date Expiration Date V isits Requested Visits Authorized [id number] Closed Auto-Generate d Referral 11/03/2021 11/02/2022 1 1 Reason Comments Insurance Authorization [employer] Reason Onset Date Comments Refill Request 11/22/2022 Reason Comments F/U 3 Month Weight loss Reason Comments Orders Reason Onset Date Comments IUD Removal and inse rtion Insertion Of IUD 01/21/2023 Specialty Diagnoses / Procedures Referred By Samy conde Referred To Contact [facility] Diagnoses Encounter for IUD removal and reinsertion Procedures INSERT INTRAUTERINE DEVICE LEVONORGESTREL IU 52MG 5 YR INSERT INTRAUTERINE DEVICE Piero Fleming MD [address] [place] [address] [address] Referral ID Status Reason Start Date Expiration Date V isits Requested Visits Authorized [id number] Closed Auto-Generate d Referral 12/16/2022 12/13/2023 1 1 Reason Comments F/U 3 Month Reason Comments Forms Reason Onset Date Comments Refill Request 08/27/2023 Reason Comments F/U 3 Month Care Teams (unrecognized sec tion and content) Measurement Superintendent Relationship Specialty Start Date End Date Renetta Bowden MD [address] [place] [address] PCP - General Family Practice 01/23/15 Measurement Superintendent Relationship Specialty Start Date End Date Renetta Bowden MD [address] [place] [address] PCP - General Family Practice 01/23/15 Measurement Superintendent Relationship Specialty Start Date End Date Renetta Bowden MD [address] [place] [address] PCP - General Family Medicine 01/23/15 Measurement Superintendent Relationship Specialty Start Date End Date Renetta Bowden MD [address] [place] [address] PCP - General Family Medicine 01/23/15 Measurement Superintendent Relationship Specialty Start Date End Date Renetta Bowden MD [address] [place] [address] PCP - General Family Medicine 01/23/15 Measurement Superintendent Relationship Specialty Start Date End Date Renetta Bowden MD [address] [place] [address] PCP - General Family Medicine 01/23/15 Measurement Superintendent Relationship Specialty Start Date End Date Renetta Bowden MD [address] [place] [address] PCP - General Family Medicine 01/23/15 Measurement Superintendent Relationship Specialty Start Date End Date Renetta Bowden MD [address] [place] [address] PCP - General Family Medicine 01/23/15 Measurement Superintendent Relationship Specialty Start Date End Date Renetta Bowden MD [address] [place] [address] PCP - General Family Medicine 01/23/15 Measurement Superintendent Relationship Specialty Start Date End Date Renetta Bowden MD [address] [place] [address] PCP - General Family Medicine 01/23/15 Measurement Superintendent Relationship Specialty Start Date End Date Renetta Bowden MD [address] [place] [address] PCP - General Family Medicine 01/23/15 Measurement Superintendent Relationship Specialty Start Date End Date Renetta Bowden MD [address] [place] [address] PCP - General Family Medicine 01/23/15 Measurement Superintendent Relationship Specialty Start Date End Date Renetta Bowden MD [address] [place] [address] PCP - General Family Medicine 01/23/15 Measurement Superintendent Relationship Specialty Start Date End Date Renetta Bowden MD [address] [place] [address] PCP - General Family Medicine 01/23/15 Measurement Superintendent Relationship Specialty Start Date End Date Renetta Bowden MD [address] [place] [address] PCP - General Family Medicine 01/23/15 Measurement Superintendent Relationship Specialty Start Date End Date Renetta Bowden MD [address] [place] [address] PCP - General Family Medicine 01/23/15 Measurement Superintendent Relationship Specialty Start Date End Date Renetta Bowden MD [address] [place] [address] PCP - General Family Medicine 01/23/15 Measurement Superintendent Relationship Specialty Start Date End Date Renetta Bowdne MD [address] [place] [address] PCP - General Family Medicine 01/23/15 INFORMATION SOURCE (unrecogn ized section and content) FOR RECORDS PERTAINING TO PATIENTS WHO ARE OR HAVE BEEN ENROLLED IN A CHEMICAL DEPENDENCY/SUBSTANCEABUSE PROGRAM, SOME INFORMATION MAY BE OMITTED. This clinical summary was aggregated from multiple sources. Caution should be exercised in using it in the provision of clinical care. This summary normalizes information from multiple sources, and as a consequence, information in this document may materially change the coding, format and clinical context of patient data. In addition, data may be omitted in some cases. CLINICAL DECISIONS SHOULD BE BASED ON THE PRIMARY CLINICAL RECORDS. [facility]. provides no warranty or guarantee of the accuracy or completeness of information in this document.
[2023-12-09 04:07] LABS: Sex Hormone-binding Globulin 54.3 nmol/L (24.6-122.0)
== END | disposition home or self-care (01) ==
PROVIDERS: PCP Family Medicine; Referring Provider Obstetrics & Gynecology; Visit Provider Obstetrics & Gynecology
DX: Z12.31 Encounter for screening mammogram for malignant neoplasm of breast (principal)
CPT/HCPCS: 36415; 77063; 77067; 84270; 84403

== ENCOUNTER → 2024-03-08 | Outpatient (CLI) | payer OTHER, SELFPAY | END | disposition home or self-care (01) | PROVIDERS: PCP Family Medicine; Referring Provider Internal Medicine Gastroenterology; Visit Provider Internal Medicine Gastroenterology | DX: K59.00 Constipation, unspecified (principal); L40.50 Arthropathic psoriasis, unspecified | CPT/HCPCS: 36415 ==

== ENCOUNTER → 2024-03-30 | Outpatient (CLI) | payer OTHER, SELFPAY ==
[2024-03-30 08:40] VITALS: BP 96/56; PULSE 60; RESP 16
--- NOTE | 2024-03-30 08:54 | MRI_ITS ---
EXAM: MR ENTEROGRAPHY WITHOUT AND WITH INTRAVENOUS CONTRAST CLINICAL INDICATION: History of inflammatory bowel disease, increasing pain, chronic constipation and diarrhea. TECHNIQUE: Multiplanar and multisequence MR images of the abdomen and pelvis without with intravenous contrast. CONTRAST: IV 15CC CLARISCAN COMPARISON: No relevant prior studies available. FINDINGS: LOWER THORAX: No pleural effusion. ABDOMEN: LIVER: Normal morphology. No focal mass. Prominent right lobe likely due to Aimee''s lobe. GALLBLADDER AND BILE DUCTS: Nonvisualization of the gallbladder which could be contracted or surgically removed. No intra- or extrahepatic biliary ductal dilation. PANCREAS: No focal cystic or solid mass. SPLEEN: Normal size without focal cystic or solid mass. ADRENALS: No nodules. KIDNEYS AND URETERS: Normal renal size and position. No hydronephrosis. GI TRACT: Grossly unremarkable stomach. Normal caliber small bowel loops. Small bowel loops are normal in caliber, mucosal pattern and distribution. No inflammatory changes are seen. The appendix is not definitely identified. No definite abnormal enhancement. PELVIS: BLADDER: Unremarkable. Productive system: No pelvic mass. No free fluid. The uterus is not enlarged measuring evaluated by ultrasound. INTRAPERITONEAL SPACE: No ascites or other fluid collection. VASCULATURE: Abdominal aorta is non-dilated. LYMPH NODES: No enlarged lymph nodes. MRI/Enterography Abd/Pel IMPRESSION: Normal caliber small bowel loops without significant inflammatory changes. Electronically Signed: Jani Montesinos MD at 10:49 EDT ,
[2024-03-30 09:00] VITALS: BMI 19.1
[2024-03-30] MEDS: Glucagon 1 MG/ML Syringe IV (11:03)
[2024-03-30] MEDS: 0.9% Saline Lock 10 ML Syringe IV (11:03)
[2024-03-30 11:06] VITALS: BP 111/54; PULSE 59; RESP 16; O2SAT 94
== END | disposition home or self-care (01) ==
LOC: MRI 08:15
PROVIDERS: PCP Family Medicine; Referring Provider Internal Medicine Gastroenterology; Visit Provider Internal Medicine Gastroenterology
DX: R10.9 Unspecified abdominal pain (principal); L40.50 Arthropathic psoriasis, unspecified; R19.7 Diarrhea, unspecified; K58.9 Irritable bowel syndrome, unspecified
CPT/HCPCS: 74183; 96374; A9575; A4216; J1610

== ENCOUNTER → 2024-11-23 | Outpatient (CLI) | payer OTHER, SELFPAY ==
[2024-11-23 18:27] LABS: Hepatitis B Surface Antigen Non-Reactive (Nonreactive); Hepatitis C Antibody Non-Reactive (Nonreactive)
[2024-11-25 21:07] LABS: QNTFERON TB Mitogen Value > 10.00 IU/mL (.); QNTFERON TB1+ Ag Value 0.63 IU/mL (.); QNTFERON TB2+ Ag Value 0.71 IU/mL (.); QNTIFERON TB Positive Criteria Negative (Negative)
== END | disposition home or self-care (01) ==
LOC: MTLAB 14:48
PROVIDERS: PCP Family Medicine; Referring Provider Physician Assistant; Visit Provider Physician Assistant
DX: L40.0 Psoriasis vulgaris (principal); Z79.899 Other long term (current) drug therapy
CPT/HCPCS: 36415; 86480; 86803; 87340

== ENCOUNTER → 2024-12-30 | Outpatient (CLI) | payer OTHER, SELFPAY ==
--- NOTE | 2024-12-30 12:43 | BI_ITS ---
PROCEDURE: SCRN MAMM (CAD)W/GAIL BILAT REASON FOR EXAM: F, Age 44 y/o, history of prior right needle biopsy. TECHNIQUE: Bilateral screening digital breast tomosynthesis with 2D and 3D images. Computer aided detection. COMPARISON: Prior exam(s) dating back to December 08, 2023.. FINDINGS: There are scattered areas of fibroglandular density. Stable examination. No suspicious masses, areas of developing architectural distortion, or suspicious calcifications. BI/SCRN MAMM (CAD)W/GAIL BILAT IMPRESSION: BI-RADS 1: NEGATIVE. RECOMMEND ANNUAL MAMMOGRAPHIC SCREENING. Follow-up code: Routine Follow-up The patient will be notified of the results by letter. Reading Location: [id number]
== END | disposition home or self-care (01) ==
LOC: OPBI 12:41
PROVIDERS: PCP Family Medicine; Referring Provider Advanced Practice Midwife; Visit Provider Advanced Practice Midwife
DX: Z12.31 Encounter for screening mammogram for malignant neoplasm of breast (principal)
CPT/HCPCS: 77063; 77067

== ENCOUNTER 2025-01-03 13:21 | Inpatient (IN) | payer OTHER, SELFPAY ==
[2025-01-03] VITALS (11 sets, daily range): BP systolic 111–140; BP diastolic 72–95; PULSE 20–100; RESP 16–28; TEMP 36.6–37.2; O2SAT 97–100; BMI 23.7; BMI 24.2; BMI 24.4
--- NOTE | 2025-01-03 13:34 | CT_ITS ---
PROCEDURE: STROKE BRAIN/HEAD WITHOUT CONT REASON FOR EXAM: Left arm weakness and facial numbness. TECHNIQUE: Multiple axial tomographic images were obtained without intravenous contrast administration. Coronal and sagittal reconstruction were obtained as well. COMPARISON: None. FINDINGS: Normal torres-white matter differentiation. Mild degree of cerebral atrophy. No acute abnormality is seen. CT/STROKE Brain/Head without Cont IMPRESSION: No acute abnormality is seen. The referring physician Dr. Iverson was notified by phone. One or more dose reduction techniques were used (e.g., Automated exposure contr ol, adjustment of the mA and/or kV according to patient size, use of iterative reconstruction technique). Reading Location: [facility]
--- NOTE | 2025-01-03 13:34 | RAD_ITS ---
PROCEDURE: CHEST 1 VIEW REASON FOR EXAM: Neuro deficit, acute, stroke suspected TECHNIQUE: Frontal view of the chest. COMPARISON: 07/23/2018 FINDINGS: Cardiomediastinal silhouette within normal limits. No focal consolidation. No sizable effusion or visible pneumothorax. Trace to mild thoracic scoliosis. RAD/Chest 1 View IMPRESSION: 1. No visible acute cardiopulmonary findings. 2. Additional description as above. Reading Location: [id number]
--- NOTE | 2025-01-03 13:34 | EKG12_ITS ---
Test Reason : R/O STROKE Blood Pressure : */* mmHG Vent. Rate : 75 BPM Atrial Rate : 75 BPM P-R Int : 150 ms QRS Dur : 90 ms QT Int : 378 ms P-R-T Axes : 69 43 62 degrees QTcB Int : 422 ms Normal sinus rhythm Normal ECG Confirmed by Clarke Stuart ([id number]), web editor ANNI CHOI ([id number]) on 01/04/2025 11:02:35 AM Referred By: Confirmed By: Clarke Stuart
--- NOTE | 2025-01-03 13:35 | CT_ITS ---
PROCEDURE: STROKE CTA HEAD AND NECK W/CON REASON FOR EXAM: Left-sided weakness. TECHNIQUE: CTA imaging of the head and neck from the aortic arch to the skull vertex with intravenous contrast. 3D reconstructions. CONTRAST: 100 cc of Isovue 370. COMPARISON: None. FINDINGS: 6 mm hypodensity in the upper pole of the right lobe of the thyroid suggestive of a small colloid cyst. Aortic Arch: Normal size and branching pattern. No significant atherosclerotic plaque. Brachiocephalic and Subclavians: Unremarkable RIGHT Carotid: Right CCA: Unremarkable. Right ICA: Unremarkable. Right ECA: Unremarkable. LEFT Carotid: Left CCA: Unremarkable. Left ICA: Unremarkable. Left ECA: Unremarkable. Vertebrals: Codominant. Arise from the subclavians. Both vertebrals form the basilar. RIGHT Vertebral: Unremarkable. LEFT Vertebral: Unremarkable. No intracranial aneurysms or large vascular malformations are identified. Anterior cerebral arteries: Unremarkable. Middle cerebral arteries: Unremarkable. Basilar artery: Unremarkable. Posterior cerebral arteries: Unremarkable. Other major branches of the posterior circulation: Unremarkable. Major venous structures: Unremarkable. Other findings: No lymphadenopathy. Lung apices are clear. Bones are unremarkable. CT/STROKE CTA Head AND Neck W/Con IMPRESSION: RIGHT CAROTID: Unremarkable. LEFT CAROTID: Unremarkable. VERTEBRALS: Unremarkable. INTRACRANIAL: Unremarkable. One or more dose reduction techniques were used (e.g., Automated exposure contr ol, adjustment of the mA and/or kV according to patient size, use of iterative reconstruction technique). Reading Location: [id number]
[2025-01-03 14:05] LABS: Absolute Lymphocyte Count 2.71 X10^3/uL (0.83-4.51); Absolute Neutrophil Count 3.1 X10^3/uL (2.0-7.7); Basophil# 0.04 X10^3/uL; Basophil% 0.6 % (0-1); Eosinophil# 0.04 X10^3/uL; Eosinophils% 0.6 % (0-5); Hemoglobin 12.4 g/dL (12.0-15.0); Lymphocyte # 2.71 X10^3/ul (0.83-4.51); Lymphocyte % 41.8 % (19-41); Mean Corp Hgb Conc 34.4 g/dL (32-36); Mean Platelet Vol. 11.6 fl (6.2-12.0); Monocyte# 0.59 X10^3/uL; Monocyte% 9.1 % (0-10); NRBC Flagged by Analyzer 0 % (0-5); Neutrophil # 3.09 X10^3/uL (2.7-7.7); Neutrophil % 47.7 % (47-70); Platelet Count 161 K/mm3 (150-450); RBC Distribution Width CV 12.4 % (11.6-14.6); RBC Distribution Width SD 42.2 fl (35.1-43.9); Red Blood Count 3.87 M/mm3 (4.2-5.4); White Blood Count 6.5 K/mm3 (4.4-11.0)
[2025-01-03 14:05] LABS: Bedside Glucose 85 mg/dL (74-106)
[2025-01-03 14:15] LABS: International Normalized Ratio 1.1
[2025-01-03] MEDS: 0.9% Normal Saline (1000mL) 1,000 ML 999 ML IV (14:18)
[2025-01-03 14:34] LABS: Anion Gap 8 (5-15); BUN 10 mg/dL (4-19); BUN/Creat Ratio 16.1 RATIO (10-20); Calcium 8.6 mg/dL (7.6-11.0); Carbon Dioxide 21.1 mmol/L (22.0-29.0); Chloride 101 mmol/L (96-108); EST Glomerular Filtration Rate 113 (>60); Estimated Creatinine Clearance 138.08 ml/min (50-250); Glucose 82 mg/dL (70-99); Potassium 4.2 mmol/L (3.3-5.1); Sodium Level 130 mmol/L (133-145); Troponin T High Sensitivity < 6 ng/L (<=14)
--- NOTE | 2025-01-03 14:39 | EX.ED.DYSGE1 ---
HPI History of Present Illness Chief Complaint: Numb/Ting Narrative Narrative: Patient is a 44-year-old female with past medical anxiety, psoriatic arthritis, IBS, asthma, psoriasis who presents to the emergency department the chief complaint of right arm numbness and tingling as well as right lower extremity numbness and tingling. She also is complaining of some changes vision out of her left eye. Patient states that about a week ago she went to [place] and was sunburnt and noted that she developed impetigo on her face. States that she had some numbness and tingling on the right side of her face associated with this and was not concerned about this. Patient states that she went to bed around 11 PM last night woke up around 6 AM and was normal before she went to bed. She states that when she woke up she had this right sided numbness going on. She states that she thought things would get better however they were not and felt like they are getting worse therefore she came here to the emergency department. Patient denies any blood thinner medications. Patient states that she has been under a ton of stress recently. Patient noted that she canceled her eye appointment and came to the emergency department instead. [facility] Medical History Anxiety Psoriatic arthritis Obesity Generalized anxiety disorder Degenerative disc disease IBS (irritable bowel syndrome) Family history of ischemic heart disease Intermittent chest pain Breast mass, right Psoriasis Acute epiglottitis Asthma Home Medications ?Medication ?Instructions ?Recorded ?Last Taken ?Type levonorgestrel (Mirena) 1 insert intrauterine ONCE 05/05/18 07/23/18 History adalimumab 80 mg/0.8 mL 80 mg subcut ONCE 07/13/24 12/31/24 History subcutaneous pen kit (Humira(CF) Pen) tenapanor 50 mg tablet (Ibsrela) 50 mg PO BID IBS-C #60 tabs 10/19/24 01/03/25 Rx tirzepatide (weight loss) 12.5 12.5 mg subcut QWEEK 01/03/25 12/31/24 History mg/0.5 mL subcutaneous pen injector (Zepbound) Allergy/AdvReac Type Severity Reaction Status Date / Time No Known Allergies Allergy Verified 08/13/24 13:23 Family History Mother Diabetes CAD (coronary artery disease) CABG x 2 Father Diabetes Hypertension CAD (coronary artery disease) CABG x 2 Brother Diabetes CAD (coronary artery disease) CABG Surgical History History of tonsillectomy History of cholecystectomy Social History Smoking Status: Former smoker quit date: 08/23/06 how long ago did patient quit smoking: quit 15 years ago alcohol intake: current alcohol intake frequency: a few times a week Alcohol type: wine substance use type: does not use additional social history: pt denies edibles, denies marijuana use, denies vaping, denies aspirin use, denies ibuprofen use ROS ROS ED ROS Narrative Constitutional: Denies any headaches, fevers, chills Eyes: Complains of changes vision as noted above denies double vision Cardiovascular: Denies chest pain or palpitations Respiratory: Denies coughing wheezing shortness of breath Abdomen: Denies abdominal pain nausea vomit diarrhea : Denies any urinary symptoms Neurological: Complains of numbness on the right upper extremity and the right lower extremity as well as changes in vision. Skin: Denies any other rashes or lesions EXAM Physical Exam Narrative Exam Narrative: General: Patient lying in bed rest comfortably did not appear to be acute distress Head: Atraumatic, normocephalic Eyes: PERRL bilateral, EOMI bilateral, no conjunctival injection noted Neck: Soft, supple, trachea midline Cardiovascular: Regular rate and rhythm no murmurs gallops rubs noted Respiratory: Clear to auscultation bilaterally Abdomen: Soft, nondistended, nontender to palpation Extremities: +5/5 strength noted in bilateral upper and lower extremities, radial pulses +2/4 in the bilateral extremities, no pedal edema on exam Neurological: Patient following commands and that she was at [facility] year is 2024. NIH of 1 GCS 15 Skin: Warm, dry, intact Const Vital Signs: 01/03/25 13:22 01/03/25 14:04 01/03/25 14:04 Temperature 97.9 F 98.7 F Temperature Source Temporal Oral Pulse Rate 100 89 Respiratory Rate 16 16 Blood Pressure 140/94 H 114/86 H Blood Pressure Mean 109 95 Pulse Ox 99 98 Oxygen Delivery Method Room Air Room Air Room Air 01/03/25 14:30 Temperature 98.9 F Temperature Source Oral Pulse Rate 89 Respiratory Rate 16 Blood Pressure 121/76 H Blood Pressure Mean 91 Pulse Ox 98 Oxygen Delivery Method Room Air MDM MDM MDM Narrative Medical decision making narrative: Patient is a 44-year-old female who presented to the emergency department the chief complaint of right arm and leg numbness as well as changes in vision out of the left eye. On the differential diagnose includes but limited to ischemic stroke, intracranial hemorrhage, hypoglycemia, electrolyte abnormality, anxiety/stress. Once workup is obtained reviewed she will be reevaluated. Patient was evaluated by teleneurology and they are recommending admission for MRI. Patient given [address] García. Will discuss case with hospitalist for admission. Patient's CBC reviewed showed no evidence leukocytosis white blood count was 6.5, he was 12.4, platelet count was 9161. Patient INR 1.1, PT of 14, sodium was 130, potassium normal at 4.2, creatinine was 0.60. Patient's troponin was less than 6, EKG was reviewed and showed sinus rhythm rate 75 bpm. Patient test pending. Patient's chest x-ray reviewed by myself and by radiology showed no acute cardiopulmonary processes. Trace mild thoracic scoliosis noted. Patient's CTA head and neck showed no acute findings as well as a CT Noncon. Did discuss case with hospitalist Dr. Berg who accept patient for admission. Patient was notified is agreeable this plan. Patient was given 325 mg aspirin. Lab Data Labs: Laboratory Results - last 24 hr 01/03/25 01/03/25 13:37 13:55 WBC 6.5 RBC 3.87 L Hgb 12.4 Hct 36.0 L MCV 93.0 MCH 32.0 MCHC 34.4 RDW Std Deviation 42.2 RDW Coeff of Delvin 12.4 Plt Count 161 MPV 11.6 Immature Gran % (Auto) 0.200 Neut % (Auto) 47.7 Lymph % (Auto) 41.8 H Min[place] % (Auto) 9.1 Eos % (Auto) 0.6 Baso % (Auto) 0.6 Absolute Neuts (auto) 3.1 Absolute Lymphs (auto) 2.71 Nucleated RBC % 0 PT 14.0 INR 1.1 APTT 28.0 Sodium 130 L Potassium 4.2 Chloride Direct 101 Carbon Dioxide 21.1 L Anion Gap 8 BUN 10 Creatinine 0.60 L Estim Creat Clear Calc 138.08 Est GFR (MDRD) Non-Af 113 BUN/Creatinine Ratio 16.1 Glucose 82 Calcium 8.6 Troponin T High Sens < 6 POC Glucose 85 Radiography Diagnostic Testing: Clinical Impression(s) from Imaging Studies Chest X-Ray 01/03/25 13:34 IMPRESSION: 1. No visible acute cardiopulmonary findings. 2. Additional description as above. Reading Location: [facility] Head/Neck CTA 01/03/25 13:35 IMPRESSION: RIGHT CAROTID: Unremarkable. LEFT CAROTID: Unremarkable. VERTEBRALS: Unremarkable. INTRACRANIAL: Unremarkable. One or more dose reduction techniques were used (e.g., Automated exposure control, adjustment of the mA and/or kV according to patient size, use of iterative reconstruction technique). Reading Location: [facility] Discharge Plan Triage Chief Complaint: Numb/Ting ED Provider: Elio Iverson Dx/Rx/DC Orders Clinical Impression: Numbness and tingling of right arm and leg, Change in vision Prescriptions: No Action levonorgestrel [Mirena] 20 mcg/24 hr (5 years) intrauterine device 1 insert Intrauterine ONCE Humira(CF) Pen 80 mg/0.8 mL pen injector kit 80 mg subcut ONCE Rx Instructions: every other week Zepbound 12.5 mg/0.5 mL pen injector 12.5 mg subcut QWEEK Ibsrela 50 mg tablet 50 mg PO BID Qty: 60 3RF Rx Instructions: must administer immediately before first meal of day/breakfast and dinner Primary Care Provider: Scar Zavala Referrals: Scar Zavala MD [Primary Care Provider] - Print Language: [place] Disposition Disposition: Acute Care [facility]
--- NOTE | 2025-01-03 14:57 | HP.PCM.HOS_ITS ---
HPI - General General Date of Admission: 01/03/25 Date of Service: 01/03/25 Chief Complaint: Strokelike symptoms HPI Narrative SYEDA ABREU, is a 44 F who presented to [facility] ED on 01/03/2025 with strokelike symptoms. Patient has history significant for psoriasis with psoriatic arthritis, anxiety, IBS and asthma. She was diagnosed with impetigo on her nose about 1 week ago. A few days ago she then developed right sided facial numbness with tingling, which she attributed to possible nerve issues from the impetigo. However, today she developed right leg numbness and tingling from the hip down to the knee and then some right arm generalized numbness and tingling and came in for further evaluation. She has no prior history of stroke. Her mother did have a stroke in her 40s though patient notes her mother had multiple comorbidities at that time including obesity, diabetes and hypertension. Patient does have a significant cardiac history with multiple family members having early cardiac events in their 40s and 50s. She denies any cardiac history. Does note that she has been under a high amount of stress recently. In the ED patient had mild hypertension, vitals otherwise unremarkable. Labs notable for sodium 130, otherwise unremarkable. CT brain and CTA head/neck were unremarkable. Chest x-ray was unremarkable. NIHSS score of 1 per neurology. However, neurology did recommend admission for further stroke workup and hospitalist was contacted. Saw patient at bedside in the ED, was present. Patient was sitting up comfortably in bed, conversing normally, in no acute distress. Patient was very pleasant on exam. She did report ongoing mild right facial numbness. She also reported right eye blurry vision that had been intermittent over the past few days as well. Had only mild right arm and leg numbness and tingling currently and denied any motor issues. She denied any recent fevers or chills. Notably the impetigo on her nose has resolved. No other acute concerns. [facility] Medical History Anxiety Psoriatic arthritis Obesity Generalized anxiety disorder Degenerative disc disease IBS (irritable bowel syndrome) Family history of ischemic heart disease Intermittent chest pain Breast mass, right Psoriasis Acute epiglottitis Asthma Home Medications ?Medication ?Instructions ?Recorded ?Last Taken ?Type levonorgestrel (Mirena) 1 insert intrauterine ONCE 0 05/05/18 07/23/18 History adalimumab 80 mg/0.8 mL 80 mg subcut ONCE 07/13/24 0 12/31/24 History subcutaneous pen kit (Humira(CF) Pen) tenapanor 50 mg tablet (Ibsrela) 50 mg PO BID IBS-C #6 0 tabs 10/19/24 01/03/25 Rx tirzepatide (weight loss) 12.5 12.5 mg subcut QWEEK 12/31/24 History mg/0.5 mL subcutaneous pen injector (Zepbound) Allergy/AdvReac Type Severity Reaction Status Date / Time No Known Allergies Allergy Verified 08/13/24 13:23 Family History Mother Diabetes CAD (coronary artery disease) CABG x 2 Father Diabetes Hypertension CAD (coronary artery disease) CABG x 2 Brother Diabetes CAD (coronary artery disease) CABG Surgical History History of tonsillectomy History of cholecystectomy Social History Smoking Status: Former smoker quit date: 08/23/06 how long ago did patient quit smoking: quit 15 years ago alcohol intake: current alcohol intake frequency: a few times a week Alcohol type: wine substance use type: does not use additional social history: pt denies edibles, denies marijuana use, denies vaping, denies aspirin use, denies ibuprofen use ROS Constitutional Constitutional: Denies chills, fatigue, fever(s) or weakness Eyes Eyes: Denies change in vision Cardiovascular Cardiovascular: Denies chest pain Respiratory/Chest Respiratory/Chest: Denies shortness of breath at rest Gastrointestinal Gastrointestinal: Denies abdominal pain Musculoskeletal Musculoskeletal: Denies arthralgias or myalgias Neurologic Neurologic: Reports numbness and tingling; Denies abnormal gait, abnormal speech, confusion, dizziness, focal weakness, headache(s) or paresthesias Vital Signs Vital Signs Vital Signs: 01/03/25 13:22 01/03/25 14:04 01/03/25 14:04 Temperature 97.9 F 98.7 F Temperature Source Temporal Oral Pulse Rate 100 89 Respiratory Rate 16 16 Blood Pressure 140/94 H 114/86 H Blood Pressure Mean 109 95 Pulse Ox 99 98 Oxygen Delivery Method Room Air Room Air Room Air 01/03/25 14:30 Temperature 98.9 F Temperature Source Oral Pulse Rate 89 Respiratory Rate 16 Blood Pressure 121/76 H Blood Pressure Mean 91 Pulse Ox 98 Oxygen Delivery Method Room Air Weight Weight: 81.057 kg Body Mass Index (BMI) 24.2 Physical Exam Const alert, oriented x3, no apparent distress, average body habitus, healthy appearing and well nourished Constitutional Narrative: Pleasant middle-age female, mildly anxious appearing but otherwise sitting up comfortably in bed, conversing normally, in no acute distress. General Appearance: cooperative, comfortable, well kempt and well developed HEENT normocephalic, head/scalp atraumatic, hearing grossly normal bilaterally, nasal mucous membranes and turbinates normal and moist oral mucous membranes Eyes PERRL, EOMs intact bilaterally and conjunctivae normal Neck full ROM Chest inspection of chest normal Resp normal respiratory effort, normal air movement, no use of accessory muscles and clear to auscultation bilaterally Cardio regular rate, regular rhythm, no murmurs and peripheral pulses 2+ throughout GI normal to inspection, nondistended, normoactive bowel sounds, soft to palpation, non-tender and non-distended Back/Spine normal ROM Extremity normal to inspection, full ROM and no pedal edema Skin no rashes or lesions noted Neuro oriented x3, CN's II-XII intact bilaterally, moves all extremities and no focal motor deficits Coordination / Balance: [id number] test normal Speech: speech normal Motor Exam: strength 5/5 throughout Psych mental status grossly normal Results Lab / Micro Data 01/03/25 13:55 01/03/25 13:55 Labs: Laboratory Results - last 24 hr 01/03/25 13:37: POC Glucose 85 01/03/25 13:55: WBC 6.5, RBC 3.87 L, Hgb 12.4, Hct 36.0 L, MCV 93.0, MCH 32.0, MCHC 34.4, RDW Std Deviation 42.2, RDW Coeff of Delvin 12.4, Plt Count 161, MPV 11.6, Immature Gran % (Auto) 0.200, Neut % (Auto) 47.7, Lymph % (Auto) 41.8 H, [place] % (Auto) 9.1, Eos % (Auto) 0.6, Baso % (Auto) 0.6, Absolute Neuts (auto) 3.1, Absolute Lymphs (auto) 2.71, Nucleated RBC % 0, PT 14.0, INR 1.1, APTT 28.0, Sodium 130 L, Potassium 4.2, Chloride Direct 101, Carbon Dioxide 21.1 L, Anion Gap 8, BUN 10, Creatinine 0.60 L, Estim Creat Clear Calc 138.08, Est GFR (MDRD) Non-Af 113, BUN/Creatinine Ratio 16.1, Glucose 82, Calcium 8.6, Troponin T High Sens < 6 Imaging Radiology Impression Chest X-Ray 01/03/25 13:34 IMPRESSION: 1. No visible acute cardiopulmonary findings. 2. Additional description as above. Reading Location: [id number] Head/Neck CTA 01/03/25 13:35 IMPRESSION: RIGHT CAROTID: Unremarkable. LEFT CAROTID: Unremarkable. VERTEBRALS: Unremarkable. INTRACRANIAL: Unremarkable. One or more dose reduction techniques were used (e.g., Automated exposure control, adjustment of the mA and/or kV according to patient size, use of iterative reconstruction technique). Reading Location: [id number] Assessment & Plan Assessment/Plan (1) Numbness and tingling of right arm and leg: (2) Change in vision: PLAN: Plan Patient is a 44-year-old female who presented [facility] ED on 01/03/2025 with strokelike symptoms. 1. Strokelike symptoms, CVA rule out ? Admit under observation status to PCU. Teleneurology consulted. Orders placed per stroke protocol order set. CT brain and CTA head/neck unremarkable. MRI brain completed on afternoon of 01/03 and was unremarkable. Lipid panel, A1c and TSH ordered. Echo with bubble study ordered. Unclear etiology but given MRI findings, stroke effectively ruled out. Appreciate neurology recommendations tomorrow and pending worsening of symptoms, patient should be stable for discharge home tomorrow. 2. History of psoriasis with psoriatic arthritis ? Symptoms stable on home adalimumab injections. Okay to resume these injections on discharge. 3. IBS-C ? Continue home medication. 4. Intentional weight loss ? On tirzepatide weekly, can resume on discharge. DVT prophylaxis: SCDs CODE STATUS: Full code, verified Expected disposition: Home, 1 to 2 days Total clinical time spent by myself addressing the patient's medical issues, reviewing all the data, and collaborating with patient's care team: 55 minutes. Charges/Coding Visit Charges Inpatient E&M: 85032 Init Hosp L2
--- NOTE | 2025-01-03 15:09 | MRI_ITS ---
PROCEDURE: MRI BRAIN WITHOUT CONTRAST REASON FOR EXAM: Numbness, tingling right arm. TECHNIQUE: Multiplanar, multisequence MRI of the brain without intravenous gadolinium-based contrast. COMPARISON: CT brain from 01/03/2025. FINDINGS: Brain volume is age appropriate. The ventricles are not effaced or dilated. No midline shift, mass effect, or extra-axial fluid collections are identified. No abnormal brain parenchymal signal is seen with FLAIR imaging. No diffusion restriction is identified on diffusion-weighted imaging to suggest acute/subacute ischemic changes. No acute intracranial hemorrhage or acute territorial infarction is seen. Corpus callosum, optic chiasm, suprasellar cistern, and cerebellar tonsils are within normal range. Major vascular flow voids are present. Bilateral orbits are mildly elongated which can relate to myopia. MRI/Brain without Contrast IMPRESSION: No acute intracranial process. Reading Location: [facility]
--- NOTE | 2025-01-03 15:09 | ECHOD_ITS ---
Reason For Study Reason For Study: TIA/Stroke Procedure This was a 2D Doppler, Color Flow transthoracic echocardiogram. Exam performed portable in patient room. Left Ventricle Normal size and thickness. The left ventricular ejection fraction is 65 %. No evidence for diastolic dysfunction. Right Ventricle Normal right ventricle. Atria The left and right atria are normal. Aneurysmal atrial septum. Bubble contrast study is positive for PFO. Mitral Valve Trivial mitral valve insufficiency. Tricuspid Valve Trivial tricuspid valve insufficiency. Normal pulmonary artery pressure. Aortic Valve Trisinus/trileaflet aortic valve. Pulmonic Valve The pulmonic valve is not well visualized. Great Vessels The aortic root is not well visualized. Pericardium/Pleural No pericardial effusion. Medication Performed a rapid injection of agitated mix of 9 cc saline and 1cc air to assess for atrial septal defect. MMode/2D Measurements & Calculations LVIDd: 4.5 cm IVSd: 0.84 cm Ao root diam: 2.4 cm LVIDs: 3.2 cm LVPWd: 0.73 cm RVDd: 2.9 cm FS: 29.3 % LAV(MOD-bp): 30.6 ml LVAd ap4: 29.9 cm2 SV(MOD-sp4): 50.6 ml LAV(MOD-bp) Indexed: 15.1 ml/m2 LVLd ap4: 8.1 cm SI(MOD-sp4): 24.9 ml/m2 LAV(MOD-sp2): 34.3 ml EDV(MOD-sp4): 89.2 ml LAV(MOD-sp4): 27.2 ml EDV(sp4-el): 94.2 ml LVAs ap4: 17.2 cm2 LVLs ap4: 6.2 cm ESV(MOD-sp4): 38.6 ml ESV(sp4-el): 40.7 ml EF(MOD-sp4): 56.7 % EF(sp4-el): 56.8 % SV(sp4-el): 53.6 ml LA A4 area: 12.5 cm2 LA dimension(2D): 3.1 cm RA A4 area: 11.0 cm2 TAPSE: 2.1 cm Time Measurements MV dec time: 0.23 sec Doppler Measurements & Calculations MV E max maxx: 77.6 cm/sec Lat Peak E' Maxx: 17.4 cm/sec Med Peak E' Maxx: 15.0 cm/sec MV A max maxx: 50.3 cm/sec E/E' lat: 4.5 E/E' med: 5.2 MV E/A: 1.5 MV dec slope: 330.7 cm/sec2 Ao V2 max: 128.8 cm/sec LV V1 max: 102.9 cm/sec Ao max P.6 mmHg LV V1 max P.2 mmHg Ao V2 mean: 90.9 cm/sec LV V1 mean P.2 mmHg Ao mean P.6 mmHg LV V1 mean: 70.1 cm/sec Ao V2 VTI: 26.5 cm LV V1 VTI: 21.8 cm AV (velocity ratio): 0.82 PA V2 max: 83.1 cm/sec TR max maxx: 225.3 cm/sec TR max P.3 mmHg ECHO/Echo Complete Interpretation Summary The left ventricular ejection fraction is 65 %. No evidence for diastolic dysfunction. Aneurysmal atrial septum. Bubble contrast study is positive for PFO. Ordering Physician: Yuniel Berg Referring Physician: Scar Zavala Performed By: Maricruz Crowe RDCS, RVT
[2025-01-03] MEDS: Aspirin 325 MG Tablet PO (15:40)
[2025-01-03 16:33] LABS: Thyroid Stim Hormone (TSH) 0.853 uIU/mL (0.300-4.200)
[2025-01-03] MEDS: Acetaminophen 325 MG Tablet 650 MG PO (19:44)
[2025-01-03 22:26] LABS: TROPONIN VARIANCE 2 HR UNABLE TO CALCULATE; Troponin T High Sens 2 HR < 6 ng/L (<=14)
[2025-01-04 01:37] LABS: Hemoglobin A1c 4.9 % (<=5.6)
[2025-01-04 03:07] LABS: Internal QC Validated? YES +Cl - CLEAR BKGD; Pregnancy, Serum, hCG Quali. NEGATIVE Negative
[2025-01-04] MEDS: Acetaminophen 325 MG Tablet 650 MG PO ×2 (04:50→10:51)
[2025-01-04 05:00] VITALS: BP 111/72; PULSE 68; RESP 16; TEMP 36.7; O2SAT 99
[2025-01-04 07:25] LABS: Hemoglobin 11.7 g/dL (12.0-15.0); Mean Corp Hgb Conc 35.5 g/dL (32-36); Mean Corpuscular Hgb 33.1 pg (27.0-32.0); Mean Corpuscular Volume 93.5 fL (81-99); Mean Platelet Vol. 11.9 fl (6.2-12.0); Platelet Count 164 K/mm3 (150-450); RBC Distribution Width CV 12.3 % (11.6-14.6); RBC Distribution Width SD 41.5 fl (35.1-43.9); Red Blood Count 3.53 M/mm3 (4.2-5.4); White Blood Count 5.4 K/mm3 (4.4-11.0)
[2025-01-04 08:28] LABS: Cholesterol 119 mg/dL (<=200); High Density Lipoprotein 46 mg/dL; Low Density Lipoprotein Calc. 55 mg/dL; Triglycerides 91 mg/dL; Very Low Density Lipoprotein 18 mg/dL (5-40); cholesterol:hdl ratio screen 2.58
[2025-01-04 08:31] VITALS: O2SAT 95
[2025-01-04 09:09] LABS: Anion Gap 11 (5-15); BUN 8 mg/dL (4-19); BUN/Creat Ratio 15.7 RATIO (10-20); Calcium,Total 8.3 mg/dL (7.6-11.0); Carbon Dioxide 20.6 mmol/L (21.0-32.0); Chloride 108 mmol/L (98-108); Creatinine, Serum 0.51 mg/dL (0.70-1.20); EST Glomerular Filtration Rate 118 (>60); Estimated Creatinine Clearance 162.44 ml/min (50-250); Glucose 85 mg/dL (70-99); Potassium 3.8 mmol/L (3.3-5.1); Sodium Level 139 mmol/L (133-145)
[2025-01-04 09:26] VITALS: BP 102/61; PULSE 68; RESP 16; TEMP 36.9; O2SAT 100
--- NOTE | 2025-01-04 09:50 | MRI_ITS ---
PROCEDURE: SPINE CERVICAL W/WO CONTRAST REASON FOR EXAM: Cervical spine stenosis TECHNIQUE: Cervical spine MRI without and with intravenous gadolinium-based contrast. COMPARISON: None. FINDINGS: Vertebrae: Cervical vertebral body heights are preserved. Bone marrow signal is unremarkable. Alignment: Normal. No spondylolisthesis. Spinal Cord: Cervical spinal cord is of normal size and signal intensities. Structures at the foramen magnum are unremarkable. C2-3: No canal stenosis or neural foraminal narrowing C3-4: Moderate degenerative disc bulge causing moderate stenosis of the canal and bilateral mild neural foraminal narrowing C4-5: Moderate degenerative disc bulge with moderate canal stenosis and compression of the cord and moderate left and mild right neural foraminal narrowing C5-6: Mild degenerative disc bulge with mild canal stenosis and mild bilateral neural foraminal narrowing C6-7: No canal stenosis or neural foraminal narrowing C7-T1: No canal stenosis or neural foraminal narrowing Postcontrast images: No suspicious contrast enhancement. MRI/Spine Cervical W/WO Contrast IMPRESSION: Multilevel degenerative changes in the cervical spine. Reading Location: [facility]
[2025-01-04 11:44] VITALS: O2SAT 98
--- NOTE | 2025-01-04 12:37 | CON.PCM.NE_ITS ---
Assessment and Plan: Neuro Assessment/Plan SYEDA ABREU is a 44 F with a past medical history of psoriatic arthritis, being evaluated by Teleneurology for progressive numbness of the face, arm and leg. These symptoms occurred progressively in a subacute nature and while unilateral, are patchy and appear related to almost a multiple mononeuropathy as they do no seem to be limited to a single modality and are more associated with dysesthesia and allodynia than true parasthesias. There is no weakness, the unilateral component of it is atypical but there is some evidence of it spreading to the L side. There is no clear evidence of myelopathy. Based on the fact that the patient had a cold 1 month prior and the progressive nature of this course, there is some concern for AIDP/GBS. Her psoriatic arthritis is stable. Will proceed down a GBS/AIDP evaluation and possibly consider evaluation for mononeuritis multiplex. May need to consider transfer for EMG, however her symptoms are slowly progressive and this is early in the course, may be best to be obtained as outpatient. Plan: - MRI Cervical, thoracic spine w/wo con - ESR - if the above is normal, consider LP I personally attended this patient and spent a total time of 60 minutes evaluating this patient including clinical assessment, review of chart, medical history imaging, and determining appropriate treatment and workup. HPI Consult Data Date of Consult: 01/04/25 HPI Narrative HPI Narrative: 44 F who presented to [facility] ED on 01/03/2025 with strokelike symptoms. Patient has history significant for psoriasis with psoriatic arthritis, anxiety, IBS and asthma. She was diagnosed with impetigo on her nose about 1 week ago. A few days ago she then developed right sided facial numbness with tingling, which she attributed to possible nerve issues from the impetigo. However, today she developed right leg numbness and tingling from the hip down to the knee and then some right arm generalized numbness and tingling and came in for further evaluation. She has no prior history of stroke. Her mother did have a stroke in her 40s though patient notes her mother had multiple comorbidities at that time including obesity, diabetes and hypertension. Patient does have a significant cardiac history with multiple family members having early cardiac events in their 40s and 50s. She denies any cardiac history. Does note that she has been under a high amount of stress recently. In the ED patient had mild hypertension, vitals otherwise unremarkable. Labs notable for sodium 130, otherwise unremarkable. CT brain and CTA head/neck were unremarkable. Chest x-ray was unremarkable. NIHSS score of 1 per neurology. However, neurology did recommend admission for further stroke workup and hospitalist was contacted. Neurologic History Developed staph/impetigo on the nose, along with this her eye and cheekbone was a little numb. The numbness has not improved. When she woke up yesterday, the R side of her thigh going into her calf became numb and she had tingling in the R arm. The numbness is a tingling feeling in the face and arm. In her thigh it feels very numb. Pt is Rhanded. No weakness associated with these symptoms. Had slight headache last night coming to the hospital. No other pain otherwise. Not feeling sensitive to the light. Patient had a cold 3 weeks ago, lasted about a week. Pt has chronic diarrhea at baseline with no change in it. No back pain. No difficulty using the restroom. No difficulty using computer or phone, no falls. R eye has had increased blurred vision. The face and thigh are numb but also when touched there is allodynia. Had injections in her neck in the past but that was years ago, no surgeries done on neck. Has not had a flareup of the psoriatic arthritiswas 2 years. No history of cancer. No change in joint pains or rashes. PAtient has not started or changed new medications recently. [facility] Medical History Anxiety Psoriatic arthritis Obesity Generalized anxiety disorder Degenerative disc disease IBS (irritable bowel syndrome) Family history of ischemic heart disease Intermittent chest pain Breast mass, right Psoriasis Acute epiglottitis Asthma Home Medications ?Medication ?Instructions ?Recorded ?Last Taken ?Type levonorgestrel (Mirena) 1 insert intrauterine ONCE 0 05/05/18 07/23/18 History adalimumab 80 mg/0.8 mL 80 mg subcut Q14D 07/13/24 0 12/31/24 History subcutaneous pen kit (Humira(CF) Pen) tirzepatide (weight loss) 12.5 12.5 mg subcut TH 01/0312/31/24 History mg/0.5 mL subcutaneous pen injector (Zepbound) tenapanor 50 mg tablet (Ibsrela) 50 mg PO BIDCM IBS-C 01/04/25 01/03/25 History Allergy/AdvReac Type Severity Reaction Status Date / Time No Known Allergies Allergy Verified 08/13/24 13:23 Family History Mother Diabetes CAD (coronary artery disease) CABG x 2 Father Diabetes Hypertension CAD (coronary artery disease) CABG x 2 Brother Diabetes CAD (coronary artery disease) CABG Surgical History History of tonsillectomy History of cholecystectomy Social History Smoking Status: Former smoker quit date: 08/23/06 how long ago did patient quit smoking: quit 15 years ago alcohol intake: current alcohol intake frequency: a few times a week Alcohol type: wine substance use type: does not use additional social history: pt denies edibles, denies marijuana use, denies vaping, denies aspirin use, denies ibuprofen use Vital Signs Vital Signs Vital Signs: 01/03/25 13:22 01/03/25 14:04 01/03/25 14:04 Temperature 97.9 F 98.7 F Temperature Source Temporal Oral Pulse Rate 100 89 Respiratory Rate 16 16 Respiratory Effort Respiratory Depth Respiratory Pattern Blood Pressure 140/94 H 114/86 H Blood Pressure Mean 109 95 Blood Pressure Source Blood Pressure Position Blood Pressure Location Pulse Ox 99 98 Oxygen Delivery Method Room Air Room Air Room Air Oxygen Flow Rate (L/min) 01/03/25 14:30 01/03/25 15:00 01/03/25 15:30 Temperature 98.9 F Temperature Source Oral Pulse Rate 89 71 67 Respiratory Rate 16 28 H 17 Respiratory Effort Respiratory Depth Respiratory Pattern Blood Pressure 121/76 H 122/82 H 134/95 H Blood Pressure Mean 91 95 108 Blood Pressure Source Blood Pressure Position Blood Pressure Location Pulse Ox 98 100 100 Oxygen Delivery Method Room Air Room Air Room Air Oxygen Flow Rate (L/min) 01/03/25 15:43 01/03/25 16:00 01/03/25 16:30 Temperature 98.4 F Temperature Source Pulse Rate 20 L 68 79 Respiratory Rate 19 H 18 16 Respiratory Effort Respiratory Depth Respiratory Pattern Blood Pressure 134/95 H 125/80 H 114/80 Blood Pressure Mean 108 95 91 Blood Pressure Source Blood Pressure Position Blood Pressure Location Pulse Ox 100 97 98 Oxygen Delivery Method Room Air Room Air Oxygen Flow Rate (L/min) 01/03/25 16:45 01/03/25 18:00 01/03/25 18:26 Temperature 97.9 F Temperature Source Oral Pulse Rate 78 63 Respiratory Rate 16 17 Respiratory Effort Respiratory Depth Respiratory Pattern Blood Pressure 131/92 H 111/83 H Blood Pressure Mean 105 92 Blood Pressure Source Monitor Blood Pressure Position Semi-Fowlers Blood Pressure Location Left Arm Pulse Ox 98 100 Oxygen Delivery Method Room Air Room Air Room Air Oxygen Flow Rate (L/min) 01/03/25 19:35 01/03/25 22:00 01/03/25 22:00 Temperature 98.2 F Temperature Source Oral Pulse Rate 68 Respiratory Rate 18 Respiratory Effort Normal Non-Labored Respiratory Depth Normal Respiratory Pattern Normal Blood Pressure 111/72 Blood Pressure Mean 85 Blood Pressure Source Monitor Blood Pressure Position Semi-Fowlers Blood Pressure Location Right Arm Pulse Ox 99 Oxygen Delivery Method Room Air Room Air Room Air Oxygen Flow Rate (L/min) 98 01/04/25 05:00 01/04/25 08:31 01/04/25 09:26 Temperature 98.1 F 98.4 F Temperature Source Oral Oral Pulse Rate 68 68 Respiratory Rate 16 16 Respiratory Effort Respiratory Depth Respiratory Pattern Blood Pressure 111/72 102/61 Blood Pressure Mean 85 74 Blood Pressure Source Monitor Monitor Blood Pressure Position Semi-Fowlers Semi-Fowlers Blood Pressure Location Right Arm Right Arm Pulse Ox 99 95 100 Oxygen Delivery Method Room Air Room Air Room Air Oxygen Flow Rate (L/min) 01/04/25 11:44 Temperature Temperature Source Pulse Rate Respiratory Rate Respiratory Effort Respiratory Depth Respiratory Pattern Blood Pressure Blood Pressure Mean Blood Pressure Source Blood Pressure Position Blood Pressure Location Pulse Ox 98 Oxygen Delivery Method Room Air Oxygen Flow Rate (L/min) Weight Weight: 82.8 kg Body Mass Index (BMI) 24.4 EEG Results Procedure Details EEG Procedure Details: SYEDA ABREU is a 44 year old F with a past medical history of , who presents for evaluation of Electroencephalogram on DATE at TIME NIHSS NIHSS Nursing Documentation NIHSS Nursing Documentation: NIHSS: Ischemic Stroke/TIA Start: 01/03/25 17:56 Text: For PCU Patients: NIH and Neuro Check every 4 Status: Complete hours, PRN and with change in RN caregiver. Freq: [id number] Protocol: Activity Type Activity Date Activity User E-sign Co-sign Detail Recorded Client Recorded Date Recorded By Document 01/03/25 18:00 [id number] 01/03/25 18:02 01/03/25 18:00 NIH Stroke Scale [NIHSS] A score of 0 is normal or asymptomatic . Total possible score is 42. Inpatient: RN or Physician to activate a stroke alert for onset of new stroke symptoms or with NIHSS increase >/= 3 points. Following change in neurological status, NIHSS will be performed per physician order or more frequently PRN. -1a. Level of Consciousness Alert; keenly responsive -1b. LOC Questions Answers BOTH questions correctly. -1c. LOC Commands Performs both tasks correctly . -2. Best Gaze Normal -3. Visual No visual loss -4. Facial Palsy Normal symmetrical movements -5a. Left Arm No drift; arm holds 90 (or 45 ) degrees for full 10 seconds -5b. Right Arm No drift; arm holds 90 (or 45 ) degrees for full 10 seconds -6a. Left Leg No drift; leg holds 30-degree position for full 5 seconds -6b. Right Leg No drift; leg holds 30-degree position for full 5 seconds -7. Limb Ataxia Absent -8. Sensory Mild-to- moderate sensory loss; -9. Best Language No aphasia; normal -10. Dysarthria Normal -11. Extinction and Inattention No abnormality -Total 1 Query Text:A score of 0 is normal or asymptomatic. Total possible score is 42 . ED: Notify Physician for NIHSS increase by > / = 3 points. Inpatient: RN or Physician to activate a stroke alert for NIHSS increase of > / = 3 points. Coma Scale [Assess] -Eye Opening Spontaneous -Motor Obeys Commands -Verbal Oriented [Total] -Coma Scale Total 15 Physical Exam Narrative -? General: Laying comfortably in bed; in no acute distress. -? HENT: Normal oropharynx and mucosa. Normal external appearance of ears and nose. Exophthalmos. -? Neck: Supple, no pain or tenderness -? CV:? No peripheral edema. -? Pulmonary:? Normal respiratory effort. -? Ext: No cyanosis, edema, or deformity -? Skin: No rash. Normal palpation of skin.? -? Musculoskeletal: full range of motion; no joint tenderness. Normal digits and nails by inspection. No clubbing. -? NEURO: -? Mental Status: The patient was alert and oriented to time, place, and person. Normal recent/remote memory, concentration, and general fund of knowledge. -? Language: speech is clear? Naming, repetition, fluency, and comprehension intact. -? Cranial Nerves: PERRL 3mm/brisk. EOMI, visual altman full, no facial asymmetry, facial sensation diminished in V1, 2, 3. -? Motor: normal bulk, tone, and strength throughout. No pronator drift or satelliting. Upper and lower extremities equal bilaterally. l R L SA 5 5 EE 5 5 EF 5 5 WE WF Retail Cashier 5 5 HF 5 5 KE KF 5 5 DF 5 5 PF 5 5 -? Detailed reflex exam as performed by the nurse/VLAD and witnessed by the physician: l R L Biceps 2 2 Patellar 2 1 Ankle Babinski down mute -? Tone: is normal and bulk is normal -? Sensation- LT diminished in T1, intact to temperature in the arms, proprioception intact in the arms b/l sensation atypical on the r lateral thigh, r lateral calf, intact to LT in medial area; intact to temperature throughout proprioception intact b/l vibration diminished on the RLE, intact on the LLE -? Coordination: No dysmetria on [id number], finger follow finger or [id number]. -? Gait- Gait initiation was normal. Narrow base with good heel strike and stride length was observed during ambulation. Turns were in stride. Patient was able to walk normally in tandem. Romberg was normal. Lab / Micro Data 01/04/25 06:18 01/04/25 06:18 Labs: Laboratory Results - last 24 hr 01/03/25 13:37: POC Glucose 85 01/03/25 13:55: WBC 6.5, RBC 3.87 L, Hgb 12.4, Hct 36.0 L, MCV 93.0, MCH 32.0, MCHC 34.4, RDW Std Deviation 42.2, RDW Coeff of Delvin 12.4, Plt Count 161, MPV 11.6, Immature Gran % (Auto) 0.200, Neut % (Auto) 47.7, Lymph % (Auto) 41.8 H, [place] % (Auto) 9.1, Eos % (Auto) 0.6, Baso % (Auto) 0.6, Absolute Neuts (auto) 3.1, Absolute Lymphs (auto) 2.71, Nucleated RBC % 0, PT 14.0, INR 1.1, APTT 28.0, Sodium 130 L, Potassium 4.2, Chloride Direct 101, Carbon Dioxide 21.1 L, Anion Gap 8, BUN 10, Creatinine 0.60 L, Estim Creat Clear Calc 138.08, Est GFR (MDRD) Non-Af 113, BUN/Creatinine Ratio 16.1, Glucose 82, Hemoglobin A1c 4.9 L, Calcium 8.6, Troponin T High Sens < 6, TSH 0.853 01/03/25 21:40: Troponin T Hi Sens 2 Hr < 6, Troponin T Hi Sens 2Hr Delta UNABLE TO CALCULATE, Serum , Qual NEGATIVE 01/04/25 06:18: WBC 5.4, RBC 3.53 L, Hgb 11.7 L, Hct 33.0 L, MCV 93.5, MCH 33.1 H, MCHC 35.5, RDW Std Deviation 41.5, RDW Coeff of Delvin 12.3, Plt Count 164, MPV 11.9, Sodium 139, Potassium 3.8, Chloride 108, Carbon Dioxide 20.6 L, Anion Gap 11, BUN 8, Creatinine 0.51 L, Estim Creat Clear Calc 162.44, Est GFR (MDRD) Non- Af 118, BUN/Creatinine Ratio 15.7, Glucose 85, Calcium 8.3, Triglycerides 91, Cholesterol 119, LDL Cholesterol, Calc 55, VLDL Cholesterol 18, HDL Cholesterol 46, Cholesterol/HDL Ratio 2.58 Imaging Radiology Impression Brain CT 01/03/25 13:34 IMPRESSION: No acute abnormality is seen. The referring physician Dr. Iverson was notified by phone. One or more dose reduction techniques were used (e.g., Automated exposure control, adjustment of the mA and/or kV according to patient size, use of iterative reconstruction technique). Reading Location: [id number] Chest X-Ray 01/03/25 13:34 IMPRESSION: 1. No visible acute cardiopulmonary findings. 2. Additional description as above. Reading Location: [id number] Head/Neck CTA 01/03/25 13:35 IMPRESSION: RIGHT CAROTID: Unremarkable. LEFT CAROTID: Unremarkable. VERTEBRALS: Unremarkable. INTRACRANIAL: Unremarkable. One or more dose reduction techniques were used (e.g., Automated exposure control, adjustment of the mA and/or kV according to patient size, use of iterative reconstruction technique). Reading Location: [id number] Brain MRI 01/03/25 15:09 IMPRESSION: No acute intracranial process. Reading Location: [facility] Active Medications Active Medications Active Medications: Current Medications Generic Name Dose Route Start Last Admin Trade Name Freq PRN Reason Stop Dose Admin Acetaminophen 650 mg 01/03/25 17:56 01/04/25 10:51 Acetaminophen 325 Mg Tablet PO 650 mg Q6H PRN PRN Administration Pain 1-10 Or Fever>100.7 Aspirin 81 mg 01/04/25 08:00 01/04/25 10:12 Aspirin 81 Mg Tab.Chew PO Not Given BREAKFAST ALESSANDRO Atorvastatin Calcium 80 mg 01/03/25 22:00 01/03/25 22:17 Atorvastatin Calcium 80 Mg Tablet PO Not Given QHS ALESSANDRO Hydralazine HCl 5 mg 01/03/25 17:56 Hydralazine 20 Mg/Ml Vial IV 01/04/25 17:56 Q30M PRN maintain BP parameters with HR <60 Sodium Chloride 100 mls @ 15 mls/hr 01/03/25 18:03 IV .Q6H40M PRN Saline Flush Sodium Chloride 100 mls @ 15 mls/hr 01/03/25 18:03 IV .Q6H40M PRN Additional IVPB Infusion Labetalol HCl 20 mg 01/03/25 13:34 Labetalol 20mg/4ml Syringe IV 01/04/25 13:34 X1 PRN Blood Pressure Labetalol HCl 10 - 20 mg 01/03/25 17:56 Labetalol 20mg/4ml Syringe IV 01/04/25 17:56 Q10M PRN PRN maintain BP parameters with HR >/=60 Melatonin 3 mg 01/03/25 17:56 Melatonin 3 Mg Tablet PO QHS PRN PRN INSOMNIA Ondansetron HCl 4 mg 01/03/25 17:56 Ondansetron 4 Mg/2 Ml Vial IV Q8H PRN PRN NAUSEA/VOMITING Sodium Chloride 10 - 40 ml 01/03/25 18:03 0.9% Saline Lock 10 Ml Syringe IV UD PRN SALINE FLUSH
--- NOTE | 2025-01-04 13:16 | MRI_ITS ---
PROCEDURE: SPINE THORACIC W/WO CONTRAST REASON FOR EXAM: Right-sided numbness TECHNIQUE: Thoracic spine MRI without and with intravenous gadolinium-based contrast. COMPARISON: None. FINDINGS: Vertebrae: Thoracic vertebral body heights are preserved. Bone marrow signal is unremarkable. Alignment: Normal. No spondylolisthesis. Spinal Cord: Thoracic spinal cord is of normal size and signal intensities. Disc spaces: At the T5/T6 level there is a degenerative disc bulge causing mild compression on the canal and no neural foraminal narrowing Paraspinal Tissues: Unremarkable. Postcontrast images: Unremarkable. MRI/Spine Thoracic W/WO Contrast IMPRESSION: Mild degenerative changes of the thoracic spine with no acute abnormality. Reading Location: [facility]
--- NOTE | 2025-01-04 15:00 | PN_ITS ---
Subjective Subjective Patient seen and examined. Her was by her bedside. Still complains of numbness and tingling on the right side of her face as well as her right arm and right leg. She denies any focal weakness. Review of systems otherwise negative. Objective Data Objective Data Vital Signs: Vital Signs Temp Pulse Resp BP Pulse Ox O2 Del Method O2 Flow Rate 98.4 F 68 16 102/61 98 Room Air 98 01/04/25 09:26 01/04/25 09:26 01/04/25 09:26 01/04/25 09:26 01/04/25 11:44 01/04/25 11:44 01/03/25 19:35 Oxygen Flow Rate (L/min) 98 Oxygen Delivery Method Room Air Weight: 182 lb 8.684 oz Body Mass Index (BMI) 24.4 Intake & Output: Intake and Output for Last 24 Hours 01/02/25 01/03/25 01/04/25 23:59 23:59 23:59 Intake Total 1000 / 1000 Balance 1000 / 1000 Lab / Micro Data 01/04/25 06:18 01/04/25 06:18 Labs: Laboratory Results - last 24 hr 01/03/25 13:55: Hemoglobin A1c 4.9 L, TSH 0.853 01/03/25 21:40: Troponin T Hi Sens 2 Hr < 6, Troponin T Hi Sens 2Hr Delta UNABLE TO CALCULATE, Serum , Qual NEGATIVE 01/04/25 06:18: WBC 5.4, RBC 3.53 L, Hgb 11.7 L, Hct 33.0 L, MCV 93.5, MCH 33.1 H, MCHC 35.5, RDW Std Deviation 41.5, RDW Coeff of Delvin 12.3, Plt Count 164, MPV 11.9, Sodium 139, Potassium 3.8, Chloride 108, Carbon Dioxide 20.6 L, Anion Gap 11, BUN 8, Creatinine 0.51 L, Estim Creat Clear Calc 162.44, Est GFR (MDRD) Non- Af 118, BUN/Creatinine Ratio 15.7, Glucose 85, Calcium 8.3, Triglycerides 91, Cholesterol 119, LDL Cholesterol, Calc 55, VLDL Cholesterol 18, HDL Cholesterol 46, Cholesterol/HDL Ratio 2.58 Radiography Diagnostic Testing: Radiology Impression Brain CT 01/03/25 13:34 IMPRESSION: No acute abnormality is seen. The referring physician Dr. Iverson was notified by phone. One or more dose reduction techniques were used (e.g., Automated exposure control, adjustment of the mA and/or kV according to patient size, use of iterative reconstruction technique). Reading Location: [id number] Brain MRI 01/03/25 15:09 IMPRESSION: No acute intracranial process. Reading Location[facility] Echocardiogram 01/03/25 15:09 Interpretation Summary The left ventricular ejection fraction is 65 %. No evidence for diastolic dysfunction. Aneurysmal atrial septum. Bubble contrast study is positive for PFO. Ordering Physician: Yuniel Berg Referring Physician: Scar Zavala Performed By: Maricruz Crowe, KINSEYCS, RVT Physical Exam Const alert, oriented x3, no apparent distress and well nourished General Appearance: cooperative and well developed HEENT normocephalic, head/scalp atraumatic, moist oral mucous membranes and oropharynx normal Eyes PERRL and EOMs intact bilaterally Neck no lymphadenopathy and supple Lymph Lymphatic: no lymphadenopathy noted and no lymphedema noted Resp normal respiratory effort, normal air movement and clear to auscultation bilaterally Cardio regular rate, regular rhythm, S1 normal heart sound, S2 normal heart sound and no murmurs GI normal to inspection, nondistended, normoactive bowel sounds, soft to palpation, non-tender and non-distended Extremity normal capillary refill, no clubbing, cyanosis or edema and no calf tenderness General Extremity: no tenderness to palpation of joints or extremities Skin General Skin Exam: no breakdown and turgor normal Neuro no focal motor deficits Neuro Narrative: decreased sensation to light touch over right upper and right lower extremities as well as right side of her face. CN II-XII otherwise intact Motor Exam: strength 5/5 throughout Psych thought process normal, cooperative and affect normal Appearance: appropriate Assessment & Plan Assessment/Plan (1) Numbness and tingling of right arm and leg: PLAN: Plan #Right-sided facial and extremities numbness * Admitted with a complaint of right facial numbness as well as numbness of her right lower extremity. She was diagnosed with impetigo about a week ago which is now resolved so she thought that the right-sided facial numbness was due to nerve issues from the impetigo. * However she developed right arm and leg numbness subsequently. * CT of the brain showed no acute intracranial pathology. MRI of the brain also shows no evidence of a stroke. She does have a history of * Cervical stenosis so MRI of the cervical spine with and without contrast ordered. Per neurology they are concerned about possible Guillain-Yousif? syndrome also so MRI of the thoracic spine with and without contrast also ordered. * PT OT on board. Fall precautions. * ESR also ordered. 2D echo showed EF of 65% with no evidence of diastolic dysfunction with bubble study being positive for PFO. * #History of psoriasis: On adalimumab. #Inflammatory bowel syndrome-C: on tenapanor. DVT prophylaxis: SCDs Charges/Coding Visit Charges Inpatient E&M: 48272 Subs Hosp L2
[2025-01-04 15:25] VITALS: BP 115/81; PULSE 68; RESP 16; TEMP 36.9; O2SAT 99
[2025-01-04 16:59] LABS: Erythrocyte Sedimentation Rate < 1 mm/hr (0-30)
[2025-01-05] VITALS: BP 104/66; PULSE 70; RESP 16; TEMP 36.7; O2SAT 100
[2025-01-05 06:00] VITALS: BP 104/65; PULSE 68; RESP 16; TEMP 36.6; O2SAT 99
--- NOTE | 2025-01-05 10:01 | NEURO.PNOTE ---
Assessment and Plan: Neuro Assessment/Plan SYEDA ABREU is a 44 F with a past medical history of psoriatic arthritis, being evaluated by Teleneurology for progressive numbness of the face, arm and leg. These symptoms occurred progressively in a subacute nature and while unilateral, are patchy and appear related to almost a multiple mononeuropathy as they do no seem to be limited to a single modality and are more associated with dysesthesia and allodynia than true parasthesias. There is no weakness, the unilateral component of it is atypical but there is some evidence of it spreading to the L side. There is no clear evidence of myelopathy. Based on the fact that the patient had a cold 1 month prior and the progressive nature of this course, there is some concern for AIDP/GBS. Her psoriatic arthritis is stable. Will proceed down a GBS/AIDP evaluation and possibly consider evaluation for mononeuritis multiplex. Patient with hypersensitivity, dysesthesias still. ESR without evidence of active inflammation, spine imaging benign. At this time she does not quite meet diagnostic criteria for mononeuritic multiplex and her onset of symptoms is too acute for EMG to be evaluated. DDx still remains MMN vs GBS vs two separate nerve peripheral nerve abnormalities. Discussed with patient about aggressive vs less aggressive forms of diagnosis and patient opted to be less invasive and monitor her symptoms. If her symptoms worsened or spread, she would come back for further evalautions. Discussed neuropathy treatment and patient wanted to avoid something like gabapentin and opted for strong NSAIDs instead. I personally attended this patient and spent a total time of 45 minutes evaluating this patient including clinical assessment, review of chart, medical history imaging, and determining appropriate treatment and workup. Subject: Neurology Subjective Patient with no new neuropathy, feels stable. Discussed her pain today and mostly present when she is touching the side of her leg and when placing contacts on (would irritate V1 ) NIHSS NIHSS Nursing Documentation NIHSS Nursing Documentation: NIHSS: Ischemic Stroke/TIA Start: 01/03/25 17:56 Text: For PCU Patients: NIH and Neuro Check every 4 Status: Complete hours, PRN and with change in RN caregiver. Freq: [id number] Protocol: Activity Type Activity Date Activity User E-sign Co-sign Detail Recorded Client Recorded Date Recorded By Document 01/03/25 18:00 [id number] 01/03/25 18:02 01/03/25 18:00 NIH Stroke Scale [NIHSS] A score of 0 is normal or asymptomatic . Total possible score is 42. Inpatient: RN or Physician to activate a stroke alert for onset of new stroke symptoms or with NIHSS increase >/= 3 points. Following change in neurological status, NIHSS will be performed per physician order or more frequently PRN. -1a. Level of Consciousness Alert; keenly responsive -1b. LOC Questions Answers BOTH questions correctly. -1c. LOC Commands Performs both tasks correctly . -2. Best Gaze Normal -3. Visual No visual loss -4. Facial Palsy Normal symmetrical movements -5a. Left Arm No drift; arm holds 90 (or 45 ) degrees for full 10 seconds -5b. Right Arm No drift; arm holds 90 (or 45 ) degrees for full 10 seconds -6a. Left Leg No drift; leg holds 30-degree position for full 5 seconds -6b. Right Leg No drift; leg holds 30-degree position for full 5 seconds -7. Limb Ataxia Absent -8. Sensory Mild-to- moderate sensory loss; -9. Best Language No aphasia; normal -10. Dysarthria Normal -11. Extinction and Inattention No abnormality -Total 1 Query Text:A score of 0 is normal or asymptomatic. Total possible score is 42 . ED: Notify Physician for NIHSS increase by > / = 3 points. Inpatient: RN or Physician to activate a stroke alert for NIHSS increase of > / = 3 points. Coma Scale [Assess] -Eye Opening Spontaneous -Motor Obeys Commands -Verbal Oriented [Total] -Coma Scale Total 15 EEG Results Procedure Details EEG Procedure Details: SYEDA ABREU is a 44 year old F with a past medical history of , who presents for evaluation of Electroencephalogram on DATE at TIME Objective Data Objective Data Vital Signs: Vital Signs Temp Pulse Resp BP Pulse Ox O2 Del Method O2 Flow Rate 97.9 F 68 16 104/65 99 Room Air 98 01/05/25 06:00 01/05/25 06:00 01/05/25 06:00 01/05/25 06:00 01/05/25 06:00 01/05/25 06:00 01/03/25 19:35 Oxygen Flow Rate (L/min) 98 Oxygen Delivery Method Room Air Weight: 82.8 kg Body Mass Index (BMI) 24.4 Intake & Output: Intake and Output for Last 24 Hours 01/03/25 01/04/25 01/05/25 23:59 23:59 23:59 Intake Total 1000 / 1000 Balance 1000 / 1000 Lab / Micro Data 01/04/25 06:18 01/04/25 06:18 Labs: Laboratory Results - last 24 hr 01/04/25 06:18: ESR < 1 Radiography Diagnostic Testing: Radiology Impression Echocardiogram 01/03/25 15:09 Interpretation Summary The left ventricular ejection fraction is 65 %. No evidence for diastolic dysfunction. Aneurysmal atrial septum. Bubble contrast study is positive for PFO. Ordering Physician: Yuniel Berg Referring Physician: Scar Zavala Performed By: Maricruz Crowe, KINSEYCS, RVT Cervical Spine MRI 01/04/25 09:50 IMPRESSION: Multilevel degenerative changes in the cervical spine. Reading Location: [facility] Thoracic Spine MRI 01/04/25 13:16 IMPRESSION: Mild degenerative changes of the thoracic spine with no acute abnormality. Reading Location: [facility] Physical Exam Narrative NEURO: -? Mental Status: The patient was alert and oriented to time, place, and person. Normal recent/remote memory, concentration, and general fund of knowledge. -? Language: speech is clear? Naming, repetition, fluency, and comprehension intact. -? Cranial Nerves: PERRL 3mm/brisk. EOMI, visual altman full, no facial asymmetry, facial sensation diminished in V1, 2 -? Motor: normal bulk, tone, and strength throughout. No pronator drift or satelliting. Upper and lower extremities equal bilaterally. R L SA 5 5 EE 5 5 EF 5 5 WE WF Rfid Systems Architect 5 5 HF 5- 5 KE KF 5 5 DF 5 5 PF 5 5 -? Detailed reflex exam as performed by the nurse/VLAD and witnessed by the physician: R L Biceps 2 2 Patellar 2 1 Ankle Babinski down mute -? Tone: is normal and bulk is normal -? Sensation- LT diminished in T1, intact to temperature in the arms, proprioception intact in the arms b/l sensation atypical on the r lateral thigh, R lateral calf no longer abnormal, feel the same, intact to LT in medial thights and calves; intact to temperature throughout proprioception intact b/l vibration diminished on the RLE, intact on the LLE -? Coordination: deferred
[2025-01-05 10:17] VITALS: BP 95/69; PULSE 78; RESP 16; TEMP 36.3; O2SAT 99
[2025-01-05] MEDS: Aspirin 81 MG TAB.CHEW PO (10:20)
--- NOTE | 2025-01-05 10:40 | CASEMGMT ---
RN CM Face to Face with patient for initial transition planning/care coordination assessment. RN CM introduced self and role at [facility]. Patient lying in bed, alert and oriented. Patient willing to participate in assessment and is able to answer all questions appropriately. Care providers, pharmacy, and demographics verified. Strata: 1 PCP: Sally Specialists: Adriana resource room special education teacher Preferred Pharmacy: [facility] Retail Insurance: [employer] Prescription Benefit: yes Living Will/HPOA: none LNOK: significant other Living Arrangements: Patient lives with SO and 17yo son in a single story home with 3 steps and railing to enter the home. Transportation: self, SO DME/HHC: Patient has grabs at home. No previous HHC or SNF Patient wishes to discharge home, denies need for home health at this time. Patient states she has no further needs or concerns at this time. CM to follow for discharge planning needs that may arise. Disposition Plan: Patient to discharge home with family support and follow-up plans in place. Nery ARIZA, RN, CM
--- NOTE | 2025-01-05 14:21 | DS.PCM_ITS ---
Providers Date of Admission: 01/04/25 Date of Discharge: 01/05/25 Primary Care Physician: Dr. Scar Zavala MD Consultations 01/03/25 17:56 Consult: Tele-Neurology Routine Consulting Provider: [facility] Reason for Consult: Acute Ischemic Stroke/TIA EMERGENT Consult: No MD Notified: Yes Date Notified: 01/03/25 Time Notified: 15:07 Method of Notification: ED Physician Initiated Nursing Unit Staff Notify [facility] of Tele-Neurology Consult: Yes Reason For Visit: STROKELIKE SYMPTOMS Diagnosis Discharge Diagnosis (1) Numbness and tingling of right arm and leg: Status: Acute Code(s): R20.0 - Anesthesia of skin; R20.2 - Paresthesia of skin Plan #Right-sided facial and extremities numbness * Admitted with a complaint of right facial numbness as well as numbness of her right lower extremity. She was diagnosed with impetigo about a week ago which is now resolved so she thought that the right-sided facial numbness was due to nerve issues from the impetigo. * However she developed right arm and leg numbness subsequently. * CT of the brain showed no acute intracranial pathology. MRI of the brain also shows no evidence of a stroke. She does have a history of * Cervical stenosis so MRI of the cervical spine with and without contrast ordered. Per neurology they are concerned about possible Guillain-Yousif? syndrome also so MRI of the thoracic spine with and without contrast also ordered. * PT OT on board. Fall precautions. * ESR also ordered. 2D echo showed EF of 65% with no evidence of diastolic dysfunction with bubble study being positive for PFO. * #History of psoriasis: On adalimumab. #Inflammatory bowel syndrome-C: on tenapanor. DVT prophylaxis: SCDs Medications at Discharge Home Medications levonorgestrel (Mirena) 1 insert intrauterine ONCE prevent 05/05/18 adalimumab 80 mg/0.8 mL subcutaneous pen kit (Humira(CF) Pen) 80 mg subcut Q14D arthritis 07/13/24 tirzepatide (weight loss) 12.5 mg/0.5 mL subcutaneous pen injector (Zepbound) 12.5 mg subcut TH diabetes 01/03/25 tenapanor 50 mg tablet (Ibsrela) 50 mg PO BIDCM IBS-C 01/04/25 ketorolac 10 mg tablet 10 mg PO Q8H PRN pain #30 tabs 01/05/25 pantoprazole 20 mg tablet,delayed release 20 mg PO DAILY #30 tabs 01/05/25 Hospital Course Operations None Procedures 2-D Echocardiogram Summary of Care Provided Minutes Spent on Discharge: 45 Hospital Course: Patient is a 44-year-old female with past medical history as outlined including psoriasis with psoriatic arthritis, anxiety and irritable bowel syndrome as well as asthma who was admitted to the ED on 01/03/2025 with strokelike symptoms. She says she was diagnosed with impetigo on him was about a week prior to admission. A few days prior to this admission she developed right-sided facial numbness and tingling which she attributed to possible nerve issues from the impetigo. However on the day of admission she also developed right leg numbness and tingling from the hip down to the knee and then also developed right arm numbness and tingling. She therefore came into the ED due to concerns about a stroke. She had never had a history of a stroke but said her mother did have a stroke in her 40s though her mother had multiple comorbidities including obesity, diabetes and hypertension. She also had a significant family history of cardiac disease. On admission labs were remarkable for sodium of 130. CT of the brain showed no acute intracranial pathology and CT of the head and neck showed no hemodynamically significant stenosis. NIH stroke scale was 1. She was admitted to be worked up for stroke. She had MRI of the brain which was negative for any evidence of a stroke. 2D echo showed EF of 65% with no diastolic dysfunction. Bubble study was positive for PFO. Neurology reviewed patient and was concerned about possible Guillain-Yousif? syndrome. She therefore had cervical spine and thoracic spine MRI with and without contrast. Cervical spine MRI showed multilevel level degenerative changes in the cervical spine. MRI of thoracic spine showed mild degenerative changes of the thoracic spine with no acute abnormality. Neurology reviewed patient and thought her symptoms could be explained by some cervical neuropathy though this did not explain the right facial tingling. Per neurology discussion with patient, patient did not want to try gabapentin now and rather opted for strong NSAIDs to help combat the symptoms. He was therefore discharged on p.o. Toradol for 5-day course. She is follow-up with her primary care doctor. Patient was interlocked with neurology on outpatient basis. Of fluid she was also discharged with p.o., pantoprazole 20 mg daily for GI protection whilst on the Toradol. She was Patient seen and examined prior to discharge. She had no active complaints. She had an uneventful night. Review of systems otherwise negative. Labs and vitals reviewed. Home medication reviewed and reconciled. Physical Exam Const alert, oriented x3, no apparent distress, average body habitus, healthy appearing and well nourished General Appearance: cooperative, comfortable, well kempt and well developed Orientation / Consciousness: awake Exam Limitations: no limitations HEENT normocephalic, head/scalp atraumatic, hearing grossly normal bilaterally, nasal mucous membranes and turbinates normal, moist oral mucous membranes and oropharynx normal Mouth: oral and palatal mucosa normal Eyes PERRL, EOMs intact bilaterally and conjunctivae normal Neck full ROM, no lymphadenopathy and supple Lymph Lymphatic: no lymphadenopathy noted and no lymphedema noted Chest inspection of chest normal Resp normal respiratory effort, normal air movement, no retractions, no use of accessory muscles and clear to auscultation bilaterally Cardio regular rate, regular rhythm, S1 normal heart sound, S2 normal heart sound, no murmurs and peripheral pulses 2+ throughout GI normal to inspection, nondistended, normoactive bowel sounds, soft to palpation, non-tender and non-distended Back/Spine normal ROM Extremity normal to inspection, full ROM, normal capillary refill, no clubbing, cyanosis or edema, no calf tenderness and no pedal edema General Extremity: no tenderness to palpation of joints or extremities Skin no rashes or lesions noted General Skin Exam: no breakdown and turgor normal Neuro oriented x3, moves all extremities and no focal motor deficits Neuro Narrative: decreased sensation to light touch over right upper and right lower extremities as well as right side of her face. CN II-XII otherwise intact Coordination / Balance: [id number] test normal Speech: speech normal Motor Exam: strength 5/5 throughout Psych mental status grossly normal, thought process normal, cooperative and affect normal Appearance: appropriate Weight / BMI Weight Weight: 182 lb 8.684 oz Body Mass Index (BMI) 24.4 ABG / Lab / Microbiology Data 01/04/25 06:18 01/04/25 06:18 Laboratory: Laboratory Results - last 24 hr 01/04/25 06:18: ESR < 1 Radiography Diagnostic Testing: Radiology Impression Cervical Spine MRI 01/04/25 09:50 IMPRESSION: Multilevel degenerative changes in the cervical spine. Reading Location: [facility] Thoracic Spine MRI 01/04/25 13:16 IMPRESSION: Mild degenerative changes of the thoracic spine with no acute abnormality. [facility] Discharge Diet: Low fat / Low cholesterol Discharge Activity: Return to Normal Activity Weight Bearing Status: Weight bearing as tolerated Call your doctor if you observe: Fever of 101 or Higher, Numbness or Tingling and - DC O2, CPAP, BIPAP Needs Home O2 Discharge instructions: No DC home with Oxygen: No Meaningful Use Info Meaningful Use Meaningful Use Diagnoses (Choose all that apply): None applicable Ischemic Stroke Statin Dosing Therapy Reference: STATIN DOSE THERAPY REFERENCE: * Patients > 75 years receive moderate or high dose statin therapy. * Patients 75 years or YOUNGER should receive HIGH intensity statin dose unless contraindicated. You will be required to document reason for non-treatment if statin daily dose does not meet guidelines. HIGH DOSE STATIN THERAPY DAILY Atorvastatin > than or = to 40 mg Rosuvastatin > than or = to 20 mg Amlodipine + Atorvastatin > than or = to 2.5/40 mg Ezetimibe + Simvastatin 10/80 mg Simvastatin 80mg Discharge Plan Admission Admit Date/Time: 01/04/25 15:20 Primary Reason for Your Visit: stroke like symptoms Attending Provider: Alicia Cesar Primary Care Provider: Scar Zavala Consulting Providers: Nahtan Lewis; Keon Guillory; Jeannie Wylie; Caitlin Ramirez; Annemarie Cornejo; Fredy Phillips; Ally Saunders; Khoi García; Ruddy Angelo; Fei Ely; Dorothy Capellan; Patrick Marcial; Shira Dorsey; Prudencio Marroquin; Brady Kimbrough; Rob Ugarte; Cherelle Taveras; Tyrell Richards; Hayley Doll; Lilian Mccoy; Yuniel Berg Instructions Patient Instructions: Cervical Radiculopathy, ED Paraesthesias Discharge Orders/Prescriptions Prescriptions: New ketorolac 10 mg tablet 10 mg PO Q8H PRN (Reason: pain) Qty: 30 0RF Rx Instructions: maximum total duration of 5 days from all oral, intranasal, or parenteral formulations pantoprazole 20 mg tablet,delayed release (DR/EC) 20 mg PO DAILY Qty: 30 0RF Continued Mirena 20 mcg/24 hr (5 years) intrauterine device 1 insert Intrauterine ONCE Humira(CF) Pen 80 mg/0.8 mL pen injector kit 80 mg subcut Q14D Rx Instructions: injects every other week on Friday Zepbound 12.5 mg/0.5 mL pen injector 12.5 mg subcut TH Ibsrela 50 mg tablet 50 mg PO BIDCM Rx Instructions: must administer immediately before first meal of day/breakfast and dinner Referrals / Follow Up: Scar Zavala MD [Primary Care Provider] - Within 1 Week Disposition Disposition (needs filled in before D/C Order can be placed): Home, Self Care Charges/Coding Visit Charges Inpatient E&M: 89139 Disch Hosp >30min
--- NOTE | 2025-01-05 14:21 | DCINST_ITS ---
Discharge Instructions Diet Discharge Diet: Low fat / Low cholesterol DC O2, CPAP, BIPAP needs Home O2 Discharge instructions: No Dressing / Incision Discharge Activity: Return to Normal Activity Weight Bearing Status: Weight bearing as tolerated Dressing / Incision Call your doctor if you observe: Fever of 101 or Higher, Numbness or Tingling and - Follow Up Care Test Results: Test results from this visit will be discussed in further detail at your follow- up appointment, if applicable. Discharge Plan Admission Admit Date/Time: 01/04/25 15:20 Primary Reason for Your Visit: stroke like symptoms Attending Provider: Alicia Cesar Primary Care Provider: Scar Zavala Consulting Providers: Nathan Lewis; Keon Guillory; Jeannie Wylie; Caitlin Ramirez; Annemarie Cornejo; Fredy Phillips; Ally Saunders; Khoi García; Ruddy Angelo; Fei Ely; Dorothy Capellan; Patrick Marcial; Shira Dorsey; Prudencio Marroquin; Brady Kimbrough; Rob Ugarte; Cherelle Taveras; Tyrell Richards; Hayley Doll; Lilian Mccoy; Yuniel Berg Instructions Patient Instructions: Cervical Radiculopathy, ED Paraesthesias Discharge Orders/Prescriptions Prescriptions: New ketorolac 10 mg tablet 10 mg PO Q8H PRN (Reason: pain) Qty: 30 0RF Rx Instructions: maximum total duration of 5 days from all oral, intranasal, or parenteral formulations pantoprazole 20 mg tablet,delayed release (DR/EC) 20 mg PO DAILY Qty: 30 0RF Continued levonorgestrel [Mirena] 20 mcg/24 hr (5 years) intrauterine device 1 insert Intrauterine ONCE Humira(CF) Pen 80 mg/0.8 mL pen injector kit 80 mg subcut Q14D Rx Instructions: injects every other week on Friday Zepbound 12.5 mg/0.5 mL pen injector 12.5 mg subcut TH Ibsrela 50 mg tablet 50 mg PO BIDCM Rx Instructions: must administer immediately before first meal of day/breakfast and dinner Referrals / Follow Up: Scar Zavala MD [Primary Care Provider] - Within 1 Week Disposition Disposition (needs filled in before D/C Order can be placed): Home, Self Care
--- NOTE | 2025-01-05 14:28 | CASEMGMT ---
SW did not complete a PHQ 9 as per physician patient did not have a stroke or TIA. Bernarda JARAMILLO
--- NOTE | 2025-01-05 14:47 | CASEMGMT ---
Patient has order for discharge. RN CM in to discuss needs at discharge. Patient denies needs or help at dischasrge. Patient had no further questions or concerns at this time.
[2025-01-05 14:52] VITALS: BP 106/74; PULSE 79; RESP 16; TEMP 37; O2SAT 98
== END 2025-01-05 15:00 | disposition home or self-care (01) | DRG 93 ==
LOC: ED 15:08 → PCU 16:49
PROVIDERS: Admitting Provider Hospitalist; Emergency Provider Emergency Medicine; PCP Family Medicine; Visit Provider Student in an Organized Health Care Education/Training Program
DX: R20.2 Paresthesia of skin (principal); E11.9 Type 2 diabetes mellitus without complications; L40.50 Arthropathic psoriasis, unspecified; K58.9 Irritable bowel syndrome, unspecified; Z87.891 Personal history of nicotine dependence
CPT/HCPCS: 36415; 70450; 70496; 70498; 70551; 71045; 72156; 72157; 80048; 80061; 82962; 83036; 84443; 84484; 84703; 85025; 85027; 85610; 85652; 85730; 93005; 93306; 94762; 99285; A9575; Q9967; A4216

== ENCOUNTER 2025-01-17 16:00 | Outpatient (RCR) | payer OTHER, SELFPAY ==
--- NOTE | 2025-01-13 10:43 | HP.PTEVAL_ITS ---
Patient's Visit Information Visit Information Visit Information: SYEDA ABREU is a 44 year old F referred to Physical Therapy by Dr. Scar Zavala MD with a diagnosis of CERVICAL RADICULOPATHY. Date of Evaluation: 01/12/25 Physical Therapist: Ruddy Wei PT, Cert MDT, OCS Visit Plan Frequency: 2x /Week Duration: 4 Weeks Plan: PT INTERVENTIONS MANUAL CERVICAL TRACTION ,POSTURAL EX'S , NEURO TENSION STRETCHING ,MODALITIES ,DLS/JOSE A EX'S Subjective Subjective: This 44 y/o female presents to physical therapy with cervical radiculopathy. Patient developed paresthesia /tingling right leg and arm last FridayJanuary 03 . Patient was admitted to PCU for [address] Scan ,MRI Brain , and MRI neck showed C3-4: Moderate degenerative disc bulge causing moderate stenosis of the canal and bilateral mild neural foraminal narrowing C4-5: Moderate degenerative disc bulge with moderate canal stenosis and compression of the cord and moderate left and mild right neural foraminal narrowing. Seen Neuro make-up with blood work is - . All negative with stroke like symptoms. Patient has no pain paresthesia right side body. Aggravating factors not specific. Alleviating factors not specific. Patient sleeping is not symptoms . Patient has no pain . Patient condition affects QOL and function. Patient goal to decrease symptoms. 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 Objective Objective: POSTURE: mild forward posture GAIT: reciprocal pattern NEURO: c/o right arm and leg paresthesia/tingling ,C5-6-7 2/3 ,L4-5,L3-l4,L5-S1 2/3 PALPATION: unremarkable MMT: BUE grossly 4/5 ,quads/hams/hip ,ankle 4/5 [employer] STRENGTH: right 80# ,left 70# LUMBAR ROM: WFL flexion ,extension WFL ,side glides WFL CERVICAL ROM: flexion WFL ,extension min ,rotations ,lateral flexion WFL Special Tests C/S Radiculapathy - Left Upper limb tension test: Negative C/S Radiculapathy - Right Upper limb tension test: Positive C/S Radiculapathy - Left Spurlings: Negative C/S Radiculapathy - Right Spurlings: Negative C/S Radiculapathy - Left Cervical distraction: Negative C/S Radiculapathy - Right Cervical distraction: Negative C/S Radiculapathy - Left Relief test: Negative C/S Radiculapathy - Right Relief test: Negative Sharp Echo: Negative Vertebral Artery Test: Negative Alar Ligament Test: Negative Cervical Sitting: Protrusion - Mechanical Response: No effect Cervical Sitting: Protrusion - Symptoms During Testing: No effect Cervical Sitting: Protrusion - Symptoms After Testing: No effect Cervical Sitting: Retraction - Mechanical Response: No effect Cervical Sitting: Retraction - Symptoms During Testing: No effect Cervical Sitting: Retraction - Symptoms After Testing: No effect Cervical Sitting: Retraction-Extension - Mechanical Response: No effect Cerv Sitting: Retraction-Extension - Symptoms During Testing: No effect Cerv Sitting: Retraction-Extension - Symptoms After Testing: No effect Cervical Sitting: Sidebend Right - Mechanical Response: No effect Cervical Sitting: Sidebend Right - Symptoms During Testing: No effect Cervical Sitting: Sidebend Right - Symptoms After Testing: No effect Cervical Sitting: Sidebend Left - Mechanical Response: No effect Cervical Sitting: Sidebend Left - Symptoms During Testing: No effect Cervical Sitting: Sidebend Left - Symptoms After Testing: No effect Cervical Sitting: Rotation Right - Mechanical Response: No effect Cervical Sitting: Rotation Right - Symptoms During Testing: No effect Cervical Sitting: Rotation Right - Symptoms After Testing: No effect Cervical Sitting: Rotation Left - Mechanical Response: No effect Cervical Sitting: Rotation Left - Symptoms During Testing: No effect Cervical Sitting: Rotation Left - Symptoms After Testing: No effect Cervical Sitting: Flexion - Mechanical Response: No effect Cervical Sitting: Flexion - Symptoms During Testing: No effect Cervical Sitting: Flexion - Symptoms After Testing: No effect L/S Left Straight Leg Raise: Negative L/S Right Straight Leg Raise: Negative L/S Left Femoral Nerve Tension: Negative L/S Right Femoral Nerve Tension: Negative Balance/Special Test Scores Oswestry Neck Score: 12 Goals Goal 1:: Patient be I with HEP to manage symptoms Goal Time Frame: 4-6 Weeks Goal 2:: Patient to demonstrate 40-50% improvement with less paresthesia Goal Time Frame: 4-6 Weeks Goal 3:: Patient to improve neck oswestry score by 3 points to improve QOL Goal Time Frame: 4-6 Weeks Goal 4:: Patient to resolve symptomatology of paresthesia in right arm leg. Goal Time Frame: 4-6 Weeks Rehabilitation Potential Physical Therapy Diagnosis: This patient has atypical paresthesia right side arm and leg min neck pain ,r/o neuro make with diagnostics and blood work had MRI shower DDD with stenosis etiology is inclusive but did have some + relief with cervical manual traction and neuro tension testing right UE thus benefit from skilled PT and ortho spine and neuro consult Rehabilitation Potential: Good Anticipated Interventions Patient/Client Instruction: Educate patient on: Condition and Plan of Care For the Purpose of:: To increase ROM, To improve muscle performance and motor function, To improve ability to perform ADL's, To increase tolerance to activity/condition/position, To improve ability of physical actions for home/community/work/leisure, To improve health of tissue, To decrease soft tissue restriction, To reduce risk of recurrence and To improve tolerance to ADL's Therapeutic Exercise to Include: Strength training, Flexibilty training, Active ROM, Dynamic Lumbar Stabilization and Jose A Exercises For the Purpose of:: To decrease swelling/inflammation, To improve muscle performance and motor function, To improve ability to perform ADL's, To increase tolerance to activity/condition/position, To improve ability of physical actions for home/community/work/leisure, To increase flexibility/ROM and To reduce risk of recurrence Manual Therapy Techniques to Include: Mobilization Comment: CERVICAL TACTION For the Purpose of:: To decrease pain, To improve nutrient delivery to tissue, To increase oxygenation perfusion, To improve health of tissue and To decrease soft tissue restriction Text: Thank you for the opportunity to evaluate your patient. For Medicare and Medicare HMO plans, please review the plan of care and approve it. It will need to be FAXED BACK to us at [phone] for Medicare purposes. For Medicare only, by signing this I certify the plan of care. Please let me know if there are questions or concerns regarding this plan of care. Physician Signature:____ Date:
--- NOTE | 2025-03-09 15:59 | HP.PTDCSUM ---
Discharge Summary D/C summary: It has been my pleasure to treat SYEDA ABREU referred by Dr. Scar Zavala MD, with the diagnosis of CERVICAL RADICULOPATHY for a total of 2 visit(s). Discharge Date: Please see the following information for a summary of their discharge status. Subjective Subjective: Seen family doesn't need Neuro workout Thinks more neck issues So ,DR prednisone so I am 80% Objective Objective/Function: Did well with progression of and postural ex's and cervical strengthening no symptoms provided ex's for HEP and band Goals Goal 1:: Patient be I with HEP to manage symptoms Goal 2:: Patient to demonstrate 40-50% improvement with less paresthesia Goal 3:: Patient to improve neck oswestry score by 3 points to improve QOL Goal 4:: Patient to resolve symptomatology of paresthesia in right arm leg. Plan Plan: d/c to HEP D/C Information d/c sentence: If there are questions or concerns regarding this patient's physical therapy, please feel free to call me at [phone]. Thank you for the referral of this patient. Sincerely, Ruddy Wei, PT, Cert MDT, OCS Balance/Gait/Functional tests Balance/Special Test Scores Oswestry Neck Score: 12
== END 2025-01-17 19:00 | disposition home or self-care (01) ==
LOC: PT 16:00
PROVIDERS: PCP Family Medicine; Referring Provider Family Medicine; Visit Provider Family Medicine
DX: M47.22 Other spondylosis with radiculopathy, cervical region (principal)
CPT/HCPCS: 97110; 97162

== ENCOUNTER → 2025-04-04 | Outpatient (CLI) | payer OTHER, SELFPAY ==
--- NOTE | 2025-04-04 14:31 | CT_ITS ---
PROCEDURE: LIMITED CHEST CT CARDIAC ONLY REASON FOR EXAM: HYPERLIDEMIA TECHNIQUE: CT for coronary artery for calcium scoring.. One or more dose reduction techniques were used (e.g., Automated exposure control, adjustment of the mA and/or kV according to patient size, use of iterative reconstruction technique). COMPARISON: None. CT/Limited Chest CT Cardiac Only IMPRESSION: Limited imaging of the lungs demonstrates no acute process. No pleural effusion or pneumothorax is seen in visualized areas. No adenopathy is noted. The visualized upper abdomen demonstrates no significant abnormality. Reading Location: [id number]
--- NOTE | 2025-04-18 18:11 | CA.SCORE ---
Calcium Scoring Date of Study:: 04/04/25 Indications Indications: HLD Coronary Calcium Scoring: High-resolution Computed Tomographic imaging of the chest was performed on [ 04/04/25], with particular attention paid to the coronary arteries. Images from the examination were analyzed for the presence and extent of coronary artery calcification , using coronary calcium quantification software. The patient tolerated the procedure well and there were no complications. The results of the coronary calcification analysis are provided below. Findings Coronary Artery Left Main (LM): 0 Left Anterior Descending (LAD): 9.5 Left Circumflex (LCX): 0.79 Right Coronary Artery (RCA): 31 Total Agatston Score: 41.29 Percentile Ranking: Greater than 90th percentile Calcium Scoring Interpretation: Different methods to categorize the overall amount of coronary plaque. Overall amount CAC SIS Visual of coronary plaque P1 Mild -100 <2 1-2 vessels with mild amount of plaque P2 Moderate 101-300 3-4 1-2 vessels with moderate amount, 3 vessels with mild amount of plaque P3 Severe 301-999 5-7 3 vessels with moderate amount, 1 vessel with severe amount of plaque P4 Extensive >1000 >8 2-3 vessels with severe amount of plaque Calcium Score: Mild: 1-2 vessels w/mild amount of plaque Conclusion: Mild atherosclerotic plaquing noted
== END | disposition home or self-care (01) ==
LOC: CT 14:29
PROVIDERS: PCP Family Medicine; Referring Provider Internal Medicine Cardiovascular Disease; Visit Provider Internal Medicine Cardiovascular Disease
DX: E78.5 Hyperlipidemia, unspecified (principal); Z82.49 Family history of ischemic heart disease and other diseases of the circulatory system
CPT/HCPCS: 75571; 76380